=== PATIENT | male | born 1980 | race African-American/Black ===

== ENCOUNTER 2021-03-07 12:34 | Outpatient (REF) | payer BC, SELFPAY ==
[2021-03-07 13:16] LABS: MANUAL DIFF FLAG NO
[2021-03-07 13:17] LABS: Basophils Percent Auto 0.4 % (0-2); Eosinophils Percent Auto 0.7 % (0-4); Hematocrit 40.8 % (42-52); Hemoglobin 13.2 g/dl (14.0-18.0); Imm Gran Abs Auto 0.01 X10*3/uL (0.00-0.03); Imm Gran Pct Auto 0.2 % (0.0-0.4); Lymphocytes Absolute Auto 1.5 X10*3/uL (1.2-4.9); Lymphocytes Percent Auto 33.7 % (20-40); Mean Corpuscular HGB Conc 32.4 g/dl (31.0-36.0); Mean Corpuscular Hemoglobin 29.4 pg (27.0-33.0); Mean Corpuscular Volume 90.9 fL (80-98); Mean Platelet Volume 10.1 fL (9.4-12.4); Monocytes Absolute Auto 0.4 X10*3/uL (0.1-1.2); Monocytes Percent Auto 9.6 % (2-11); Neutrophils Absolute Auto 2.5 X10*3/uL (2.0-8.3); Neutrophils Percent Auto 55.4 % (45-73); Platelet Count 298 X10*3/uL (160-400); Red Blood Count 4.49 X10*6/uL (4.60-5.80); Red Cell Distribution Width 12.6 % (11.0-16.0); White Blood Count 4.5 X10*3/uL (4.8-10.8)
[2021-03-07 13:51] LABS: Alanine Aminotransferase 14 U/L (0-40); Albumin Level 4.5 g/dL (3.5-5.0); Alkaline Phosphatase 60 U/L (39-117); Anion Gap 11 (12-20); Aspartate Amino Transferase 24 U/L (5-37); Bilirubin Total 0.6 mg/dL (0.0-1.0); Blood Urea Nitrogen 12 mg/dL (9-16); Calcium 9.8 mg/dL (8.4-10.2); Carbon Dioxide 28 mmol/L (22-29); Chloride 108 mmol/L (96-108); Cholesterol 220 mg/dL; Estimated Glomerular Filt Rate > 60; Glucose Random 91 mg/dL (60-115); HDL Cholesterol 46 mg/dL; LDL Cholesterol Calculated 164 mg/dl; Potassium 4.4 mmol/L (3.3-5.1); Sodium 143 mmol/L (135-145); Triglycerides 53 mg/dL
== END 2021-03-07 12:35 | disposition home or self-care (01) ==
LOC: HO.LAB 12:34
PROVIDERS: PCP Internal Medicine; Visit Provider Internal Medicine
DX: B00.1 Herpesviral vesicular dermatitis (principal); E78.00 Pure hypercholesterolemia, unspecified; Z85.72 Personal history of non-Hodgkin lymphomas
CPT/HCPCS: 36415; 80053; 80061; 85025

== ENCOUNTER → 2021-03-10 09:35 | Outpatient (BNV) | payer BC, OTHER, SELFPAY | PROVIDERS: PCP Internal Medicine; Visit Provider Internal Medicine | DX: C91.50 Adult T-cell lymphoma/leukemia (HTLV-1-associated) not having achieved remission (principal); D61.818 Other pancytopenia | CPT/HCPCS: 99213; 99214; 99215; G2211 ==

== ENCOUNTER 2021-05-23 09:18 | Outpatient (REF) | payer BC, SELFPAY ==
[2021-05-23 10:36] LABS: Alanine Aminotransferase 11 U/L (0-40); Albumin Level 4.4 g/dL (3.5-5.0); Alkaline Phosphatase 55 U/L (39-117); Anion Gap 10 (12-20); Aspartate Amino Transferase 17 U/L (5-37); Bilirubin Total 0.9 mg/dL (0.0-1.0); Blood Urea Nitrogen 17 mg/dL (9-16); Calcium 9.7 mg/dL (8.4-10.2); Carbon Dioxide 27 mmol/L (22-29); Chloride 107 mmol/L (96-108); Cholesterol 243 mg/dL; Estimated Glomerular Filt Rate 53; Glucose Random 99 mg/dL (60-115); HDL Cholesterol 50 mg/dL; LDL Cholesterol Calculated 175 mg/dl; Potassium 4.2 mmol/L (3.3-5.1); Sodium 140 mmol/L (135-145); Total Protein 7.8 g/dL (6.5-8.0); Triglycerides 92 mg/dL
== END 2021-05-23 09:19 | disposition home or self-care (01) ==
LOC: HO.LAB 09:18
PROVIDERS: PCP Internal Medicine; Visit Provider Internal Medicine
DX: R10.2 Pelvic and perineal pain (principal); E78.00 Pure hypercholesterolemia, unspecified; Z85.72 Personal history of non-Hodgkin lymphomas
CPT/HCPCS: 36415; 80053; 80061

== ENCOUNTER 2022-06-11 09:39 | Outpatient (REF) | payer BC, SELFPAY ==
[2022-06-11 09:47] LABS: MANUAL DIFF FLAG NO
[2022-06-11 10:05] LABS: Basophils Percent Auto 0.4 % (0-2); Eosinophils Percent Auto 0.4 % (0-4); Hematocrit 39.3 % (42.0-52.0); Hemoglobin 13.1 g/dl (14.0-18.0); Imm Gran Abs Auto 0.01 X10*3/uL (0.00-0.03); Imm Gran Pct Auto 0.1 % (0.0-0.4); Lymphocytes Absolute Auto 1.7 X10*3/uL (1.2-4.9); Mean Corpuscular HGB Conc 33.3 g/dl (31.0-36.0); Mean Corpuscular Volume 90.1 fL (80.0-98.0); Mean Platelet Volume 9.7 fL (9.4-12.4); Monocytes Absolute Auto 0.6 X10*3/uL (0.1-1.2); Monocytes Percent Auto 9.1 % (2-11); Neutrophils Absolute Auto 4.4 x10*3/uL (2.0-8.3); Platelet Count 239 X10*3/uL (160-400); Red Blood Count 4.36 X10*6/uL (4.60-5.80); Red Cell Distribution Width 12.4 % (11.0-16.0); White Blood Count 6.8 X10*3/uL (4.8-10.8)
[2022-06-11 10:30] LABS: Alanine Aminotransferase 10 U/L (0-40); Albumin Level 4.5 g/dL (3.5-5.0); Alkaline Phosphatase 64 U/L (39-117); Anion Gap 14 (12-20); Aspartate Amino Transferase 21 U/L (5-37); Bilirubin Total 0.7 mg/dL (0.0-1.0); Blood Urea Nitrogen 19 mg/dL (9-16); Calcium 9.3 mg/dL (8.4-10.2); Carbon Dioxide 25 mmol/L (22-29); Chloride 109 mmol/L (96-108); Cholesterol 185 mg/dL; Estimated Glomerular Filt Rate > 60; Glucose Random 105 mg/dL (60-115); HDL Cholesterol 50 mg/dL; LDL Cholesterol Calculated 124 mg/dl; Potassium 4.4 mmol/L (3.3-5.1); Sodium 144 mmol/L (135-145); Total Protein 7.9 g/dL (6.5-8.0); Triglycerides 58 mg/dL
== END 2022-06-11 09:40 | disposition home or self-care (01) ==
LOC: HO.LAB 09:39
PROVIDERS: PCP Internal Medicine; Visit Provider Internal Medicine
DX: E78.00 Pure hypercholesterolemia, unspecified (principal); I10 Essential (primary) hypertension
CPT/HCPCS: 36415; 80053; 80061; 85025

== ENCOUNTER 2022-12-17 10:46 | Outpatient (REF) | payer BC, SELFPAY ==
[2022-12-17 12:10] LABS: Alanine Aminotransferase 16 U/L (0-40); Albumin Level 4.4 g/dL (3.5-5.0); Alkaline Phosphatase 70 U/L (39-117); Anion Gap 11 (12-20); Aspartate Amino Transferase 21 U/L (5-37); Bilirubin Total 0.8 mg/dL (0.0-1.0); Blood Urea Nitrogen 17 mg/dL (9-16); Calcium 9.2 mg/dL (8.4-10.2); Carbon Dioxide 27 mmol/L (22-29); Chloride 107 mmol/L (96-108); Cholesterol 185 mg/dL; Estimated Glomerular Filt Rate > 60; Glucose Random 94 mg/dL (60-115); HDL Cholesterol 46 mg/dL; LDL Cholesterol Calculated 128 mg/dl; Potassium 4.3 mmol/L (3.3-5.1); Sodium 141 mmol/L (135-145); Total Protein 7.5 g/dL (6.5-8.0); Triglycerides 58 mg/dL
== END 2022-12-17 10:47 | disposition home or self-care (01) ==
LOC: HO.LAB 10:46
PROVIDERS: PCP Internal Medicine; Visit Provider Internal Medicine
DX: Z00.00 Encounter for general adult medical examination without abnormal findings (principal); E78.00 Pure hypercholesterolemia, unspecified; I10 Essential (primary) hypertension
CPT/HCPCS: 36415; 80053; 80061

== ENCOUNTER 2024-04-14 10:58 | Day surgery (SDC) | payer OTHER, SELFPAY ==
--- NOTE | ~2024-04-14 | IR_ITS ---
CLINICAL HISTORY: T-cell lymphoma. The patient presents to interventional radiology for placement of a port for chemotherapy. PROCEDURES: 1. Real-time ultrasound-guided access into the right internal jugular vein after documentation of selected vessel patency, and permanent image storing in the patient records. 2. Placement of a 6.6 Danish single-lumen power port. CLINICIAN: Tavon Santiago PA-C MEDICATIONS: - Versed 1.5 mg, Fentanyl 75 mcg, Lidocaine 1% 10 mL SQ -Antibiotics: Ancef 2g -For additional details, please see nursing flowsheet. Complications: None. Estimated blood loss: <5 ml Specimens: None. Contrast: None. Fluoroscopy time: 2.9 min MODERATE SEDATION TIME: 33 min PROCEDURE NOTE: The procedure, risks, benefits, and alternatives were carefully explained to the patient and written informed consent was obtained. The patient was placed supine on the fluoroscopy table. A timeout was performed. The right neck and chest was prepped and draped in usual sterile fashion. Maximum barrier technique was utilized. Local anesthesia was administered to the access site with 1% lidocaine. Under ultrasound guidance, the right internal jugular vein was accessed with a 5 fr micropuncture set. A 0.035 in wire was advanced into the IVC. A peel-away sheath was advanced over the wire and into the SVC, and the wire was removed. Next, subcutaneous lidocaine was administered to the chest. The port pocket was created after the skin incision, utilizing blunt dissection. Using blunt dissection, a subcutaneous tunnel was created that connects from the port pocket to the venotomy site. Through the peel-away sheath, the 6.6 Danish port catheter was placed. The catheter position was verified with fluoroscopy to be at the superior vena cava/right atrial junction. The port was connected to the catheter and was placed in the pocket. The venotomy site was closed with a 3-0 Vicryl subcutaneous suture. The port incision site was closed with interrupted 3-0 Vicryl subcutaneous sutures and surgical glue. Prior to closing the skin, 1 g of Ancef solution was placed in the pocket. The port was tested, flushed, and packed with heparin per routine protocol. The patient tolerated the procedure well. The patient was stable after the procedure and was transferred to the PACU. The procedure was performed under moderate sedation and with a dedicated nurse with continuous monitoring of vital signs. A permanent image of the ultrasound the neck and fluoroscopic image of the chest was saved and sent to PACS. FINDINGS: 1. Patent right internal jugular vein 2. Placement of a 6.6 Danish single lumen power port. 3. Port flushes and aspirates very well with a 10 mL syringe. No pneumothorax. IR/IR cvc insert tunnel w prt/hardboard panel printer IMPRESSION: Placement of a 6.6 Danish single-lumen power port. PLAN: - The patient will be discharged home when stable by sedation protocol. - Port may be used immediately. This procedure was performed by Tavon Santiago PA-C, and directly supervised by Dr. Burden
[2024-04-14 11:36] VITALS: BP 105/85; PULSE 100; RESP 18; TEMP 37; O2SAT 100; BMI 24.7
--- NOTE | 2024-04-14 12:48 | MHC.SHP ---
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 and poor iv access Relevant Family History (Specify if Yes): No Relevant Social History: None Present Medications: see Short Stay Collaborative assessment Medical History: Significant History (prior right port) History of Previous Operations: Relevant previous surgery/procedure and date(s) Allergies: Allergies Allergy/AdvReac Type Severity Reaction Status Date / Time No Known Allergies Allergy Verified 04/14/24 11:39 [No Known Allergies*] Review of Systems Sugical H&P ROS: Negative: Cardiovascular, Respiratory and Integumentary and Yes, Specify: Constitution (intermittent fevers) Exam Surgical H&P Exam: Normal: Heart, Normal: Lungs, Normal: Skin and Normal: Neurological Plan Port Time Spent With Patient Time: Total time managing care of this patient today ____ minutes.
[2024-04-14 14:30] VITALS: BP 136/98; PULSE 85; RESP 16; TEMP 37.3; O2SAT 97
[2024-04-14 14:45] VITALS: BP 135/89; PULSE 88; RESP 16; TEMP 37.3; O2SAT 99
== END 2024-04-14 14:46 | disposition home or self-care (01) ==
PROVIDERS: Physician Assistant Surgical; PCP Internal Medicine; Visit Provider Internal Medicine
DX: Z45.2 Encounter for adjustment and management of vascular access device (principal); C84.41 Peripheral T-cell lymphoma, not elsewhere classified, lymph nodes of head, face, and neck; R25.1 Tremor, unspecified; J45.909 Unspecified asthma, uncomplicated; M54.50 Low back pain, unspecified; Z79.899 Other long term (current) drug therapy
CPT/HCPCS: 36561; 76937; 99152; 99153; A4364; C1769; C1788; J0131; J0690; J1642; J1644; J2250; J2310; J3010

== ENCOUNTER → 2024-04-14 12:15 | Outpatient (BNV) | payer OTHER, SELFPAY | PROVIDERS: PCP Internal Medicine; Visit Provider Physician Assistant Surgical | DX: C85.90 Non-Hodgkin lymphoma, unspecified, unspecified site (principal) | CPT/HCPCS: 36561; 76937; 77001 ==

== ENCOUNTER → 2024-04-15 14:03 | Outpatient (REF) | payer OTHER, SELFPAY ==
--- NOTE | 2024-04-15 14:06 | CA_ITS ---
Transthoracic Echocardiogram Patient (Last, First, Middle): Jus Johnson B Gender: Male Date of : 1980 Age: 43 Procedure Date: 04/15/2024 Procedure Type: Transthoracic Echocardiogram Location: OP Height: 177.8 cm Weight: 78.47 kg BSA: 1.96 m2 Heart Rate: bpm BP: 112 / 80 mmHg Senior Care Assistant: TO Referring MD: Ninfa Kirk MD Symptoms: pre-chemo eval Study Quality: Adequate w contrast ECG Rhythm: Sinus Conclusions: - The left ventricular systolic function is mildly decreased. The calculated ejection fraction is 47% by biplane method. - No obvious valvular pathology seen on this study. Findings Procedure Information Contrast agent, definity, is being given per protocol without apparent complications. Left Ventricle Normal left ventricular cavity size. There is normal left ventricular wall thickness. The left ventricular systolic function is mildly decreased. The calculated ejection fraction is 47% by biplane method. There is mild global hypokinesis. Diastolic function is normal for age. LVEF peak GLS -13.4%- diminished. Right Ventricle Normal right ventricular cavity size. There is low normal right ventricular systolic function. Atria Both atria are normal in size. There is a mobile atrial septum noted. Aortic Valve There is a normal trileaflet aortic valve. There is no aortic valve stenosis. There is no aortic valve regurgitation. Mitral Valve The mitral valve appears normal. There is mild mitral valve regurgitation. There is no mitral valve stenosis. Pulmonic Valve There is trace pulmonic valve regurgitation. Tricuspid Valve Normal tricuspid valve structure. There is trace tricuspid valve regurgitation. There is no evidence of pulmonary hypertension. Great Vessels The asc aorta is normal in size. Venous The inferior vena cava is normal in size and collapses greater than 50% with inspiration. Pericardium/Pleural There is no evidence of pericardial effusion. Prior Study Comparison Changes noted compared to prior study dated: 04/18/2015. Decrease in LVEF. Recommendations, Care & Conclusions No obvious valvular pathology seen on this study. Measurements 2D Linear Measurements IVSd: 0.99 0.6-0.9/0.6-1.0 cm LVIDd: 4.17 3.9-5.3/4.2-5.9 cm LVIDd Index: 2.13 2.4-3.2/2.2-3.1 cm/m2 LVIDs: 3.00 2.0-3.6 cm LVPWd: 0.91 0.7-1.1 cm LA Diam: 2.80 2.7-3.8/3.0-4.0 cm LAIDs Index: 1.43 1.5-2.3 cm/m2 LV Mass: 156.95 67-162/88-224 g LV Mass Index: 80.08 43-95/49-115 g/m2 LVOT Diam: 2.20 3.0+(-)1.3 cm 2D Systolic Function EF 4C: 45.80 >55% EF 2C: 45.40 >55% EF BiP: 46.60 >55% Mitral Valve MV Pk E: 0.42 MV PK A: 0.49 MV Decel Time: 164.00 E/A: 0.90 E'Lateral: 6.31 E'Medial: 5.55 E/E' Med: 7.60 E/E' Lat: 6.70 PHT: 48.00 MVA PHT: 4.58 Decel Villalba: 2.55 Aortic Valve AoV Pk Juan Miguel: 1.21 AoV Mn Juan Miguel: 0.83 AoV VTI: 0.18 AoV Pk Grad: 6.00 Aov Mn Grad: 3.00 FARHAT Cont.VTI: 3.61 LVOT LVOT Pk Juan Miguel: 1.01 LVOT Mn Juan Miguel: 0.63 LVOT VTI: 0.17 LVOT Pk Grad: 4.00 LVOT Mn Grad: 2.00 LVOT Diam: 2.20 LVOT Area: 3.80 Diastolic Function MV Pk E: 0.42 MV Pk A: 0.49 E/A: 0.90 E'Medial: 5.55 E/E' Med: 7.60 E' Laterial: 6.31 E/E' Lat: 6.70 Right Ventricle TAPSE (mm): 15.00 TVS' Juan Miguel: 10.40 Tricuspid Valve TR Pk Juan Miguel: 2.05 TR Pk Grad: 17.00 RA Press: 3.00 RVSP: 20.00 Great Vessels Aorta Sinus of Valsalva: 3.88 2.0-3.5 cm Ao Asc: 3.30 2.1-3.4 cm Updated in Other Vendor System with Status of Final Jan Gustafson MD electronically signed on 04/17/2024 10:20:39 AM with status of Final
== END ==
LOC: HO.CARD 14:03
PROVIDERS: PCP Internal Medicine; Visit Provider Internal Medicine
DX: C85.90 Non-Hodgkin lymphoma, unspecified, unspecified site (principal)
CPT/HCPCS: 93306; 93356; Q9957

== ENCOUNTER → 2024-04-15 14:06 | Outpatient (BNV) | payer OTHER, SELFPAY | PROVIDERS: PCP Internal Medicine; Visit Provider Internal Medicine | DX: I34.0 Nonrheumatic mitral (valve) insufficiency (principal); Z51.11 Encounter for antineoplastic chemotherapy | CPT/HCPCS: 93306; 93356 ==

== ENCOUNTER 2024-04-17 10:28 | Day surgery (SDC) | payer OTHER, SELFPAY ==
--- NOTE | ~2024-04-17 | FL_ITS ---
FLUOROSCOPIC GUIDED LUMBAR PUNCTURE INDICATION: Recurrent T-cell lymphoma. Tremors. TECHNIQUE: Risks and benefits and possible complications were discussed with the patient and the consent form was signed. Patient was placed prone on the fluoroscopy table. The back was prepped and draped in routine sterile fashion. Betadine was used as a skin antiseptic. Utilizing fluoroscopic guidance, the L4-5 interlaminar space was accessed with a 22 gauge Omid spinal needle and clear CSF fluid obtained. 10 cc of fluid was sent for the requested labs. The needle was removed without immediate complications. Total fluoroscopy time: 0.2 min FL/FL guided lumbar puncture LP IMPRESSION: Successful fluoroscopic guided lumbar puncture This procedure was performed by Tavon Santiago PA-C and supervised by Dr. Burden.
[2024-04-17 11:03] VITALS: BMI 24.8
[2024-04-17 13:25] VITALS: BP 146/94; PULSE 86; RESP 21; TEMP 37.3; O2SAT 99
[2024-04-17 13:41] VITALS: BP 155/92; PULSE 77; RESP 17; TEMP 37.3; O2SAT 99
[2024-04-17 13:57] VITALS: BP 152/101; PULSE 85; RESP 17; TEMP 37.2; O2SAT 99
[2024-04-17 14:01] LABS: CSF Appearance Clear, Colorless; CSF Tube # 1
[2024-04-17 14:30] LABS: Total Protein CSF 98.6 mg/dL (15-45)
[2024-04-17 14:37] LABS: Appearance CSF CLEAR; CSF Tube # 4; Color CSF COLORLESS
[2024-04-17 14:50] LABS: CSF Monos 6 %; CSF Other Cells % 3 %; Lymphocytes CSF 91 %; Neutrophils CSF 0 %; Red Blood Cell CSF 0 MM*3; White Blood Cell CSF 42 MM*3
[2024-04-21 19:08] LABS: VDRL Qualitative CSF Nonreactive (Nonreactive)
--- OUTSIDE RECORDS SUMMARY | 2024-04-22 06:31 | XMS_ITS | Patient Health Record ---
Author Organization [facility] Address [address] [place] [address] Care Team Providers Care Knitter Hand Name Role Phone Sonali Magana Primary Care Provider Goldy Larson Unavailable [phone] ALLERGIES No Known Allergies REASON FOR REFERRAL No Information MEDICATIONS Medication SIG (Take, Route, Frequency, Duration) Notes Start Date End Date Status Atorvastatin Calcium 40 MG Oral for 60 Active SOCIAL HISTORY Tobacco Use: Social History Observation Description Date Details (start date - stop date) Never Smoker NA - NA Sex Assigned At : Social History Observation Description Sex Assigned At Unknown Tobacco Use/Smoking Question Answer Notes Patient is a nonsmoker Alcohol Screen Question Answer Notes Did you have a drink contain ing alcohol in the past year? Yes How often did you have a dri nk containing alcohol in the past year? Monthly or less (1 point) How many drinks did you have on a typical day when you were drinking in the past year? 1 or 2 drinks (0 point) How often did you have 6 or more drinks on one occasion in the past year? Never (0 point) Points 1 Interpretation Negative PROBLEMS Problem Type ICD Code Onset Dates Problem Status W/U Status Risk SNOMED Code Notes Problem Encounter for screening for malignant neoplasm of colon (Z12.11) Active confirmed 598418101 Problem Preprocedural examination (Z01.818) Active confirmed [id number] PLAN OF TREATMENT No Information Insurance Providers Payer Name Payer Address Payer Phone Subscriber Number Group Number Insured Name Patient Relationship to Insured Coverage Start Date Coverage End Date BLUE CROSS BLUE [facility] [address] [place] [address] [id number] XIN SEXTON Self - patient is the insured MEDICAL (GENERAL) HISTORY Medical History History ICD Code Non-Hodgkins lymphoma 2014- Dr. Kirk-2 015--chemo for about 6 months Denies [place],DM,CVA,Lung disease,renal dise ase Hyperlipidemia Surgical History Surgery Date(Month/Year) Port insertion
== END 2024-04-17 14:00 | disposition home or self-care (01) ==
PROVIDERS: Physician Assistant Surgical; PCP Internal Medicine; Visit Provider Internal Medicine
PROC: 009U3ZZ Drainage of Spinal Canal, Percutaneous Approach (ICD-10-PCS; CPT 62270; principal; 2024-04-17 12:30)
DX: C84.41 Peripheral T-cell lymphoma, not elsewhere classified, lymph nodes of head, face, and neck (principal); R25.1 Tremor, unspecified; J45.909 Unspecified asthma, uncomplicated; Z79.899 Other long term (current) drug therapy
CPT/HCPCS: 36415; 62328; 84157; 86592; 88112; 88184; 88185; 89051

== ENCOUNTER → 2024-04-17 12:17 | Outpatient (BNV) | payer OTHER, SELFPAY | PROVIDERS: PCP Internal Medicine; Visit Provider Physician Assistant Surgical | DX: C85.90 Non-Hodgkin lymphoma, unspecified, unspecified site (principal) | CPT/HCPCS: 62328 ==

== ENCOUNTER 2024-07-23 10:37 | Outpatient (REF) | payer OTHER, SELFPAY ==
--- NOTE | ~2024-07-23 | XR_ITS ---
EXAMINATION: XR CHEST CLINICAL INFORMATION: Pneumonia COMPARISON: CT chest 03/24/2018. TECHNIQUE: 2 views of the chest were obtained. FINDINGS: Right chest port catheter with its tip projecting over the cavoatrial junction. The lungs are well-expanded. Streaky opacity in the left lung base. The right lung appears clear. No pleural effusions or pneumothorax. The cardiac mediastinal silhouette is within normal limits. No acute osseous abnormality. XR/XR chest 2V IMPRESSION: Streaky opacity in the left lung base may represent atelectasis or infiltrate. Electronically signed by: Greg Torres MD 07/23/2024 01:50 PM [facility]
== END 2024-07-23 10:38 | disposition home or self-care (01) ==
LOC: HO.XRAY 10:37
PROVIDERS: PCP Internal Medicine; Visit Provider Internal Medicine Medical Oncology
DX: J18.9 Pneumonia, unspecified organism (principal)
CPT/HCPCS: 71046

== ENCOUNTER 2025-01-29 13:12 | Inpatient (IN) | payer OTHER, SELFPAY ==
[2025-01-29] VITALS (7 sets, daily range): BP systolic 86–122; BP diastolic 54–71; PULSE 102–112; RESP 16–18; TEMP 36.3–38.7; O2SAT 94–99; BMI 25.1
--- NOTE | ~2025-01-29 | XR_ITS ---
CLINICAL HISTORY: worsening O2 sats 1 view chest x-ray Comparison: CR - XR CHEST 1V - 01/30/25 17:13 EDT Findings: Oikz-mgfgfgw-cbmg-right bibasilar streaky opacities/atelectasis. No significant pleural effusion or pneumothorax. Similar prominent/enlarged cardiac silhouette. Similar position of the right chest port. No acute fracture. IMPRESSION: Ypze-aihuelm-cnvw-right bibasilar streaky opacities/atelectasis. This document has been electronically signed by: Dhiraj Block MD on 01/31/2025 23:43:29
--- NOTE | ~2025-01-29 | US_ITS ---
CLINICAL HISTORY: GINNY US Renal Comparison: None Findings: Right kidney normal size and echotexture, 11.2 cm length. Left kidney normal size and echotexture, 13.0 cm length. There are bilateral renal bosniak 1 cysts. No hydronephrosis of either kidney. Normal color Doppler IMPRESSION: 1. No acute findings. This document has been electronically signed by: Maximiliano Thomas MD on 01/30/2025 10:38:48
--- NOTE | ~2025-01-29 | XR_ITS ---
CLINICAL HISTORY: hyopxia Chest Radiograph Comparison: CR/SR - XR CHEST 1V - 01/29/25 15:04 EDT Findings: Right chest wall central venous catheter with the tip terminating at the proximal right atrium. No cardiomegaly. Normal mediastinal contours. No pneumothorax. Linear opacities in the lower lung zones, new. No pleural effusion. Normal upper abdomen. No acute fracture. Impression: New linear opacities in the lower lung zones are likely subsegmental atelectasis. This document has been electronically signed by: Jennifer Cortez MD on 01/30/2025 17:58:31
--- NOTE | ~2025-01-29 | XR_ITS ---
EXAMINATION: XR CHEST CLINICAL INFORMATION: Neutropenic fever COMPARISON: 07/23/2024. TECHNIQUE: Frontal view of the chest was obtained. FINDINGS: Right chest port in place with tip in the cavoatrial junction. The cardiac, hilar, and mediastinal contours are normal. There is a retrocardiac consolidative opacity. Pneumonia suspected. The right lung is clear. There is no pneumothorax. There are no definite effusions. No focal osseous or soft tissue abnormality. XR/XR chest 1V IMPRESSION: Left lower lobe consolidative opacity suspicious for pneumonia. Electronically signed by: Delfin Burden MD 01/29/2025 03:19 PM EDT
--- NOTE | 2025-01-29 13:19 | PM.IMHP ---
History of Present Illness Date of Service: 01/29/25 Attending physician on admission: Prachi Casas Chief Complaint: Abnormal labs Pt is a 44-year-old male with a PMH significant for T-cell lymphoma?diagnosed in 2024 with remission x9 years and reoccurrence in 2024, follows with [facility] and [place] [facility] [place], and HLD who is a direct admission to the hospital from Oncology suite after pt was noted to be febrile at 102 degrees and routine labs showed severe thrombocytopenia with undetectable platelets as well as hypercalcemia. Pt has undergone high-dose chemotherapy, bone marrow transplant, stem cell transplantation, as well as other experimental therapies with lymphoma recurrence. Pt has been monitored for cytopenias, receiving blood and platelet transfusion over the past few weeks. Last week was admitted to [facility] and treated with Nplate, Neulasta, and high dose cytarabine monotherapy 2g x2 with last dose on 01/21. Today in oncology office was given 1 L IVF, 2 units platelets, and started on vanc and Zosyn before being directly admitted to the hospital. ?Pt complains of pruritic all-body rash for the past few days. Has also been coughing on and off for the past few days with noted hemoptysis and mild epistaxis with blowing nose since yesterday. Denies hematuria, hematochezia, or melena. States he has not been either eating or drinking much the past few weeks. Also has felt very cold and experienced uncontrollable shivering for the past few hours since being in the hospital. Some weakness with walking, but no lightheadedness or dizziness. Denies chest pain/pressure, palpitations. No nausea, vomiting, abdominal pain. Today patient's vitals significant for fever up to 102.9, tachycardia up to 123, and hypotension as low as 79/51. Labs were significant for leukopenia 2.1, H&H 7.9/23.1, platelets undetectable, absolute neutrophils 0.3, creatinine 2.03(elevated from 0.90), lactic acid 2.2, and calcium 14.2. Ordered CXR which showed left lower lobe consolidation suspicious for pneumonia. Pt is admitted to the hospital for treatment and further evaluation of thrombocytopenia, hypercalcemia, and neutropenic fever in the the setting of pneumonia with sepsis and pt with worsening T cell lymphoma. Review of Systems Review of Systems: Negative except for that which is stated in the HPI. [facility] Medical History Port-A-Cath in place Non-Hodgkin lymphoma Low back pain Asthma Family History Mother Meningitis Father Surgical History History of removal of Port-a-Cath History of bone marrow biopsy Social History Household Members: Family Housing: House Do you presently have visiting nurse or other home services: No Alcohol intake: current Alcohol intake frequency: holidays/special occasions only Patient Tobacco Use Status: Never used Tobacco Currently Displaying Signs/Symptoms of Drug Intoxication Withdrawal: No Have you been hit, kicked, punched, or otherwise hurt by someone within the past year? If so, by whom?: No Do you feel safe in your current relationship?: Yes Is there a partner from a previous relationship who is making you feel unsafe now?: No Are you made to feel afraid or neglected: No Advance Directives: No Advance Directives Information Provided: No Do you have a plan to hurt others: No Plan service: No Current occupational status: employed and unemployed Meds Allergies Allergy/AdvReac Type Severity Reaction Status Date / Time No Known Allergies Allergy Verified 12/08/24 14:25 [No Known Allergies*] Active Medications: Current Medications Acetaminophen (Acetaminophen 325 Mg Tablet) 650 mg PO Q6H PRN PRN Reason: Pain, Mild 1-3,fever,headache Furosemide (Furosemide 40 Mg/4 Ml Vial) 40 mg IVPUSH BID@0900,1800 KAREN; Protocol Pamidronate Disodium 60 mg/ (Sodium Chloride) 260 mls @ 130 mls/hr IV ONCE ONE Stop: 01/29/25 15:59 Sodium Chloride (Ns) 1,000 mls @ 150 mls/hr IVCONT .Q6H40M KAREN Piperacillin Sod/Tazobactam (Sod 4.5 gm/ Sodium Chloride) 100 mls @ 200 mls/hr IV Q6H KAREN Magnesium Hydroxide (Milk Of Magnesia 30 Ml Oral.Susp) 30 ml PO DAILY PRN PRN Reason: Constipation Melatonin (Melatonin 3 Mg Tablet) 6 mg PO BEDTIME PRN PRN Reason: Insomnia Pharmacy Consult (Consult Rx Vancomycin Dosing) 1 each MISCELLANE DAILY PRN PRN Reason: Consult order Sodium Chloride (0.9 % Sodium Chloride Flush 3 Ml Syringe) [facility]ations ?Medication ?Instructions ?Recorded ?Confirmed ?Last Taken ?Type atovaquone 750 mg/5 mL oral 1,500 mg PO DAILY 05/15/24 01/29/25 01/29/25 History suspension oxycodone 5 mg capsule 5 mg PO Q6H PRN Pain 06/01/24 01/29/25 Unknown History polyethylene glycol 3350 17 gram 17 g PO BID PRN Constipation 06/01/24 01/29/25 Unknown History oral powder packet (Miralax) sennosides 8.6 mg capsule (senna) 8.6 mg PO BID PRN Constipation 06/01/24 01/29/25 Unknown History levofloxacin 500 mg tablet 500 mg PO DAILY 07/16/24 01/29/25 01/29/25 History letermovir 480 mg tablet 480 mg PO DAILY 12/08/24 01/29/25 01/29/25 History propranolol 10 mg tablet 10 mg PO DAILY 12/08/24 01/29/25 01/29/25 History esomeprazole magnesium 20 mg 20 mg PO DAILY@0630 01/29/25 01/29/25 01/29/25 History capsule,delayed release levetiracetam 750 mg tablet 750 mg PO BID 01/29/25 01/29/25 01/29/25 History loperamide 2 mg capsule 2 mg PO QID PRN Loose Stool 01/29/25 01/29/25 Unknown History magnesium oxide 400 mg PO BID 01/29/25 01/29/25 01/29/25 History mirtazapine 15 mg tablet 15 mg PO BEDTIME 01/29/25 01/29/25 01/29/25 History potassium phosphate, monobasic 500 500 mg PO BID 01/29/25 01/29/25 01/29/25 History mg soluble tablet saliva substitute combo no.9 15 ml mucous membrane Q4H PRN Dry 01/29/25 01/29/25 Unknown History Mouth sodium chloride 0.9 % (flush) 10 ml IV DAILY 01/29/25 01/29/25 Unknown History (Normal Saline Flush 0.9 % injection syringe) Physical Exam Vital Signs and Narrative: General: AOx3, rigors. Resp: Coarse expiratory breath sounds bilaterally Throat: A few white patches on oropharynx CVS: S1, S2, RRR GI: +BS, NT, no distention Skin: Warm, dry; diffuse maculopapular rash especially on torso, back, and thighs Neuro: Cranial nerves II-XII grossly intact bilaterally. Motor grossly intact bilaterally Extremities: No edema Psych: Appropriate affect Results Labs 01/30/25 07:12 01/30/25 07:12 Assessment and Plan (1) Hypercalcemia: Status: Acute (2) Thrombocytopenia: Status: Acute (3) Neutropenic fever: Status: Acute (4) Pneumonia: Status: Acute Plan Pt is a 44-year-old male with a PMH significant for T-cell lymphoma?diagnosed in 2024 with remission x9 years and reoccurrence in 2024, [place] [facility] [place] [facility] [place] [facility], and D who is a direct admission to the hospital from Oncology suite after pt was noted to be febrile at 102 degrees and routine labs showed severe thrombocytopenia with undetectable platelets as well as hypercalcemia. Pt is admitted to the hospital for treatment and further evaluation of thrombocytopenia, hypercalcemia, and neutropenic fever in the the setting of pneumonia with sepsis and pt with worsening T cell lymphoma. Neutropenic fever in the setting of pneumonia with severe sepsis Pt with fever up to 102, rigors, absolute neutrophils 0.3 Pt was deemed to meet sepsis criteria when chart was evaluated at 13:01 with thrombocytopenia, fever, tachycardia, and tachypnea Pt had already received 1 L of IVF, had blood cultures drawn, and started on broad-spectrum antibiotics in the oncology office Due to hypotension and meeting severe sepsis criteria was given sepsis bolus fluids and lactic acid was drawn which was 2.2 with repeat 1.5 CXR was obtained which showed left lower lobe consolidation concerning for pneumonia Will treat with vancomycin and cefepime, started 01/29/2025 Will check MRSA nasal swab, Legionella Ag, and strep pneumo Neutropenic precautions ID consult Heme/Onc consult Follow blood cultures Hypotension Patient's BP as low as 79/51 In the setting of above Pt has received 3.5L IV bolus Continues to be hypotensive, will give anohter 1L bolus, albumin ICU has been notified, possible transfer Hold antihypertensives Thrombocytopenia Patient's platelets undetectable earlier this morning Was transfused 2 units of platelets in Oncology suite, repeat platelets at 37 Trend platelets Acute on chronic anemia Patient's H&H 7.9/23.1 with repeat 7.0/20.1 In the setting of T cell lymphoma and recent chemotherapy Will hold off on transfusion for now Type and screen Trend CBC Hyperkalcemia Initial calcium this morning 14.2 with repeat 12.5 Pt received IVF, pamidronate disodium 60 mg IV x1 Will place on maintenance fluids: NS @150mls/h per nephrology Nephrology has suggested to treat with Lasix 40mg IV bid, but will hold due to hypotension Nephrology consult Trend calcium GINNY Initial creatinine 2.03 Likely secondary to hypovolemia in the setting of decreased p.o. intake Pt receiving IVF Nephrology consult Follow creatinine Maculopapular rash Pt with diffuse pruritic rash for the past few days Possibly iatrogenic secondary to recent course of Levaquin vs chemotherapy Will treat with Benadryl p.r.n. Oral candidiasis Pt with sore throat and some oropharyngeal white patches Will treat with nystatin swish and swallow Full Code Attending:?Dr. Casas DVT Prophylaxis: Pneumatic compression Pt will require a hospitalization of at least two nights for treatment of?thrombocytopenia, hypercalcemia, neutropenic fever, among others in the setting of pneumonia with severe sepsis and in a pt with worsening T-cell lymphoma with recent chemotherapy. Pt will require hospital level care for administration of IV antibiotics, IVF, blood product transfusions as necessary, and close monitoring labs. Quality Stroke Does the patient have a stroke diagnosis?: No VTE Prior VTE?: No VTE Risk Level:: Medical - moderate - high VTE Device Contraindication: N/A - Device Ordered VTE Drug Contraindication: Treatment Not Indicated
--- OUTSIDE RECORDS SUMMARY | 2025-01-29 13:23 | XMS_ITS | Patient Health Record ---
Author Organization [facility] Address [address] [place] [address] Care Team Providers Care Pumper Gauger Name Role Phone Sonali Magana Primary Care Provider Goldy Larson Unavailable [phone] Allergies No Known Allergies Reason For Referral No Information Medications Medication SIG (Take, Route, Frequency, Duration) Notes Start Date End Date Status Atorvastatin Calcium 40 MG Oral for 60 Active Social History Tobacco Use: Social History Observation Description Date Details (start date - stop date) Never Smoker NA - NA Tobacco Use/Smoking Question Answer Notes Patient is [...] Never (0 point) Points 1 Interpretation Negative Section Notes: From [facility] in 2010 Nonsmoker; occ. alcohol Problems Problem Type SNOMED Code ICD Code Onset Dates Problem Status W/U Status Risk Notes Problem [id number] Encounter for screening for malignant neoplasm of colon (Z12.11) Active confirmed Problem [id number] Preprocedural examination (Z01.818) Active confirmed Plan Of Treatment No Information Insurance Providers Payer Name Payer Address Payer Phone Subscriber Number Group Number Insured Name Patient Relationship to Insured Coverage Start Date Coverage End Date BLUE CROSS BLUE [facility] [address] [place] [address] [id number] XIN SEXTON Self - patient is the insured Medical (General) History Medical History History ICD Code Non-Hodgkins lymphoma 2014- Dr. Kirk-2 015--chemo for about 6 months Denies [place],DM,CVA,Lung disease,renal dise ase Hyperlipidemia Surgical History Surgery Date(Month/Year) Port insertion
--- NOTE | 2025-01-29 13:48 | P.CNHO_ITS ---
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 He was initially diagnosed in 2014 and received chemotherapy at [facility]. He was in remission for 9 years and he developed recurrence in 2024. He developed DATA ANALYTICS ANALYST involvement. He was treated with high-dose chemotherapy and underwent allogeneic stem cell transplantation in [place] under the care of Dr. Gifty Lenz. Unfortunately he developed recurrent disease and has failed multiple other lines of treatment. He is being monitored at [facility] for cytopenias and received blood and platelet transfusions in the last several weeks. He received Nplate and Neulasta last week. He continues to be severely pancytopenic. Today he presented with fever of 102 degrees F and hypotension. He was given fluids, IV antibiotics and platelets in the clinic and admitted to the floor directly for further care. Patient also complaints of mouth sores and a body rash. He has had this body rash for few days now. [facility] Medical History: Medical History (Last Reviewed 01/29/25 @ 16:57 by Shirley Verdugo MD) Asthma Low back pain Non-Hodgkin lymphoma Port-A-Cath in place Family History: Family History (Last Reviewed 01/29/25 @ 16:57 by Shirley Verdugo MD) Mother Meningitis Father Surgical History: Surgical History (Last Reviewed 12/08/24 @ 14:25 by Rachana Chew) History of bone marrow biopsy History of removal of Port-a-Cath Social History: Social History (Last Reviewed 12/08/24 @ 14:25 by Rachana Chew) Living Situation History: Household Members: Spouse Household Members: Children Housing: House Tobacco History: Patient Tobacco Use Status: Never used Tobacco Advance Directives: Advance Directives: No Advance Directives Information Provided: No Occupation Assessmet: service: No Current occupational status: employed Current occupational status: unemployed Home Medications and Allergies Current Medications: Current Medications Acetaminophen (Acetaminophen 325 Mg Tablet) 650 mg PO Q6H PRN PRN Reason: Pain, Mild 1-3,fever,headache Furosemide (Furosemide 40 Mg/4 Ml Vial) 40 mg IVPUSH BID@0900,1800 [facility]; Protocol Pamidronate Disodium 60 mg/ (Sodium Chloride) 260 mls @ 130 mls/hr IV ONCE ONE Stop: 01/29/25 15:59 Sodium Chloride (Ns) 1,000 mls @ 150 mls/hr IVCONT .Q6H40M [facility] Piperacillin Sod/Tazobactam (Sod 4.5 gm/ Sodium Chloride) 100 mls @ 200 mls/hr IV Q6H [facility] Magnesium Hydroxide (Milk Of Magnesia 30 Ml Oral.Susp) 30 ml PO DAILY PRN PRN Reason: Constipation Melatonin (Melatonin 3 Mg Tablet) 6 mg PO BEDTIME PRN PRN Reason: Insomnia Pharmacy Consult (Consult Rx Vancomycin Dosing) 1 each MISCELLANE DAILY PRN PRN Reason: Consult order Sodium Chloride (0.9 % Sodium Chloride Flush 3 Ml Syringe) 3 ml IVFLUSH QSHIFT [facility] Home Medications ?Medication ?Instructions ?Recorded ?Confirmed ?Type amlodipine 10 mg PO DAILY 03/09/22 12/08/24 History losartan 50 mg tablet 50 mg PO DAILY 03/04/24 12/08/24 History atovaquone 750 mg/5 mL oral 1,500 mg PO DAILY 05/15/24 12/08/24 History suspension folic acid 1 mg tablet 1 mg PO DAILY 05/15/24 12/08/24 History thiamine HCl (vitamin B1) 100 mg 100 mg PO DAILY 05/15/24 12/08/24 History tablet acetaminophen 300 mg PO Q8H PRN Headache 06/01/24 12/08/24 History acetazolamide 250 mg tablet 500 mg PO 2XD 06/01/24 12/08/24 History atorvastatin 40 mg tablet 40 mg PO BEDTIME 06/01/24 12/08/24 History caffeine 200 mg PO Q8H PRN Headache 06/01/24 12/08/24 History olanzapine 5 mg tablet 5 mg PO BID 06/01/24 12/08/24 History oxycodone 5 mg capsule 5 mg PO Q6H PRN Pain 06/01/24 12/08/24 History polyethylene glycol 3350 17 gram 17 g PO BID PRN Constipation 06/01/24 12/08/24 History oral powder packet (Miralax) propranolol 30 mg PO 3XD 06/01/24 12/08/24 History sennosides 8.6 mg capsule (senna) 8.6 mg PO BID PRN Constipation 06/01/24 12/08/24 History levofloxacin 500 mg tablet 500 mg PO DAILY 07/16/24 12/08/24 History valganciclovir 450 mg tablet 900 mg PO BID 07/16/24 12/08/24 History betamethasone, augmented 0.05 % 0.05 appl topical DAILY 12/08/24 12/08/24 History topical cream cholecalciferol (vitamin D3) 50 50 mcg PO DAILY 12/08/24 12/08/24 History mcg (2,000 unit) tablet letermovir 480 mg tablet 480 mg PO DAILY 12/08/24 12/08/24 History magnesium 250 mg tablet 400 mg PO DAILY 12/08/24 12/08/24 History mirtazapine 15 mg PO DAILY 12/08/24 12/08/24 History pramoxine-zinc acetate 1 %-0.1 % 1 ea topical DAILY 12/08/24 12/08/24 History lotion propranolol 10 mg tablet 10 mg PO DAILY 12/08/24 12/08/24 History tacrolimus 1 mg capsule, 1 mg PO DAILY 12/08/24 12/08/24 History immediate-release Allergies Allergy/AdvReac Type Severity Reaction Status Date / Time No Known Allergies Allergy Verified 12/08/24 14:25 [No Known Allergies*] Hem/Onc Consult Result - Labs CBC & Chem 7: 01/29/25 16:45 01/29/25 14:49 Assessment and Plan Patient Active problem list reviewed?: Yes (1) T-cell lymphoma Status: Acute Assessment and plan: 1. This is a 44-year-old male admitted for sepsis, febrile neutropenia. He has history of recurrent T-cell lymphoma, he received allogeneic stem cell transplant in [facility] in September 2024 and developed recurrent shortly after that in October 2024. 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 Received 6 cycles of chemotherapy with CHOEP REGIMEN FROM DECEMBER TO APRIL 2015. Because of high suspicion for DATA ANALYTICS ANALYST involvement patient was admitted at [facility] for inpatient chemotherapy. Patient underwent repeat brain MRI at [facility] which revealed leptomeningeal enhancement. He was treated for DATA ANALYTICS ANALYST involvement. He was started on IVAC regimen (ifosfamide/etoposide/high dose AraC) on 04/23/2024. He completed 4th cycle of IVAC on 07/09/2024. Repeat LP on 07/01 showed normalization of protein, flow cytometry and cytology were negative. He underwent repeat PET-CT, brain and spine MRI as well as CSF studies performed end of July showed patient to be in complete remission. He was admitted 08/09/2024 and received last cycle of IVAC as bridging before allotransplantation. He underwent Allo stem cell transplant in September 2024, he had a prolonged hospitalization with septic shock due to Pseudomonas bacteremia and brief intubation with hypoxic respiratory failure due to RSV pneumonia. Unfortunately however, he relapsed in December 2024 within 3 months of Allo stem cell transplant. He was started urgently on BV-CHP regimen 1st week of December 2024. He is under the care of Dr. Gifty Lenz at [facility]. He passed all of the regulatory approval steps and was able to receive Valemetostat as single patient IND at [facility]. He was on valemetostat for a couple of weeks in December 2024. Unfortunately he progressed on this and was admitted to [facility] last week with severe hypercalcemia. He received blood transfusion and Nplate for cytopenias. He was found to have extensive and progressive lymphadenopathy as well as circulating cells. He was started on high-dose cytarabine monotherapy at a dose of 2 g per m2 Q 24 hours x2 doses, last dose was on 01/21/2025. He has developed severe pancytopenia in spite of Neulasta and blood/platelet transfusion support. 2. Febrile neutropenia/severe thrombocytopenia. Patient was given a dose of cefepime and vancomycin in the office. Blood cultures were sent. IV fluids and platelets were administered. Direct admission to hospitalist service today which is much appreciated. 3. Hypercalcemia secondary to malignancy. He has also developed acute kidney injury. IV fluids, pamidronate and renal consultation. 4. Mouth sores. Start nystatin and continue acyclovir. Thank you will follow with you. - Time Spent With Patient Time Spent with Patient (in minutes): 30
[2025-01-29] MEDS: 0.9 % Sodium Chloride 1,000 ML 2500 ML IVCONT ×2 (15:11→16:52)
[2025-01-29 15:30] LABS: Creatinine Clr Calc Pharmacy 45.9; Estimated Glomerular Filt Rate 34
[2025-01-29 15:41] LABS: Appearance Urine Clear; Color Urine Yellow; Glucose Urine UA Negative (Negative); Leukocyte Esterase Urine Negative (Negative); Nitrite Urine Negative (Negative); PH 5.5 (5.0-9.0); Specific Gravity - Urine 1.015 (1.005-1.025); Urine Blood Negative (Negative); Urine Ketones Negative (Negative); Urine Protein Negative (Neg-Trace)
[2025-01-29 15:58] LABS: Lactic Acid 2.2 mmol/L (0.5-2.0)
--- NOTE | 2025-01-29 16:26 | PM.CNNEP ---
History of Present Illness Reason for Consult Consult date: 01/29/25 Chief Complaint Chief complaint: FEVER, THROMBOCYTOPENIA,HYPERCALCEMIA History of Present Illness Narrative: 44 y/o male with T cell lymphoma diagnosed in 2014, reports gets treatment through [facility] and here at [place] sees Dr Kirk. Patient is here with hypercalcemia and GINNY. Patient states he has not been feeling well for a few days. Reports ongoing upper respiratory and nasal congestion- reports had nasal swab for viral illness which was negative. States he has had hypercalcemia in the past (calcium was reportedly 19) and this was due to a medication he was receiving for treatment of his cancer. He denies chest pain, shortness of breath, abdominal pain, nausea/vomiting/diarrhea. Denies lower extremity swelling. Reports poor PO intake over the last few days. Review of Systems Constitutional: Reports fatigue and Reports malaise Reports other (congestion) Cardiovascular: Reports chest pain, Denies leg edema and Denies dyspnea Respiratory: Reports cough and Denies dyspnea Gastrointestinal: Denies abdominal pain, Reports constipation, Denies diarrhea, Denies nausea and Denies vomiting Genitourinary: Denies hematuria, Denies oliguria, Denies dysuria and Denies flank pain Musculoskeletal: Denies back pain and Denies arthralgias Skin/Breast: Denies rash Denies paresthesias Endocrine: Reports fatigue PMFSH Past Medical History Medical History (Updated 01/29/25 @ 16:34 by Rae Wang, DNP, CONTAINER FILLER-) Port-A-Cath in place Non-Hodgkin lymphoma Low back pain Asthma Family History Family History Mother Meningitis Father Surgical History Surgical History History of removal of Port-a-Cath History of bone marrow biopsy Social History Social History Household Members: Spouse and Children Housing: House Alcohol intake: current Alcohol intake frequency: holidays/special occasions only Patient Tobacco Use Status: Never used Tobacco Advance Directives: No Advance Directives Information Provided: No service: No Current occupational status: employed and unemployed Meds Allergies Allergy/AdvReac Type Severity Reaction Status Date / Time No Known Allergies Allergy Verified 12/08/24 14:25 [No Known Allergies*] Active Medications: Current Medications Acetaminophen (Acetaminophen 325 Mg Tablet) 650 mg PO Q6H PRN PRN Reason: Pain, Mild 1-3,fever,headache Furosemide (Furosemide 40 Mg/4 Ml Vial) 40 mg IVPUSH BID@0900,1800 [facility]; Protocol Sodium Chloride (Ns) 1,000 mls @ 150 mls/hr IVCONT .Q6H40M [facility] Last Admin: 01/29/25 15:19 Dose: Not Given Vancomycin HCl (Vancomycin/Ns) 2,000 mg in 500 mls @ 250 mls/hr IV ONCE ONE Stop: 01/29/25 16:40 Cefepime HCl (Maxipime) 2 gm in 50 mls @ 100 mls/hr IV Q12H [facility] Magnesium Hydroxide (Milk Of Magnesia 30 Ml Oral.Susp) 30 ml PO DAILY PRN PRN Reason: Constipation Melatonin (Melatonin 3 Mg Tablet) 6 mg PO BEDTIME PRN PRN Reason: Insomnia Nystatin (Nystatin Oral Susp 500,000 Unit/5 Ml Oral.Susp) 500,000 unit PO QID [facility]; Protocol Pharmacy Consult (Consult Rx Vancomycin Dosing) 1 each MISCELLANE DAILY PRN PRN Reason: Consult order Sodium Chloride (0.9 % Sodium Chloride Flush 3 Ml Syringe) 3 ml IVFLUSH QSHIFT [facility] Last Admin: 01/29/25 15:20 Dose: Not Given Home Medications ?Medication ?Instructions ?Recorded ?Confirmed ?Last Taken ?Type amlodipine 10 mg PO DAILY 03/09/22 12/08/24 04/17/24 History losartan 50 mg tablet 50 mg PO DAILY 03/04/24 12/08/24 Unknown History atovaquone 750 mg/5 mL oral 1,500 mg PO DAILY 05/15/24 12/08/24 Unknown History suspension folic acid 1 mg tablet 1 mg PO DAILY 05/15/24 12/08/24 Unknown History thiamine HCl (vitamin B1) 100 mg 100 mg PO DAILY 05/15/24 12/08/24 Unknown History tablet acetaminophen 300 mg PO Q8H PRN Headache 06/01/24 12/08/24 Unknown History acetazolamide 250 mg tablet 500 mg PO 2XD 06/01/24 12/08/24 Unknown History atorvastatin 40 mg tablet 40 mg PO BEDTIME 06/01/24 12/08/24 Unknown History caffeine 200 mg PO Q8H PRN Headache 06/01/24 12/08/24 Unknown History olanzapine 5 mg tablet 5 mg PO BID 06/01/24 12/08/24 Unknown History oxycodone 5 mg capsule 5 mg PO Q6H PRN Pain 06/01/24 12/08/24 Unknown History polyethylene glycol 3350 17 gram 17 g PO BID PRN Constipation 06/01/24 12/08/24 Unknown History oral powder packet (Miralax) propranolol 30 mg PO 3XD 06/01/24 12/08/24 Unknown History sennosides 8.6 mg capsule (senna) 8.6 mg PO BID PRN Constipation 06/01/24 12/08/24 Unknown History levofloxacin 500 mg tablet 500 mg PO DAILY 07/16/24 12/08/24 Unknown History valganciclovir 450 mg tablet 900 mg PO BID 07/16/24 12/08/24 Unknown History betamethasone, augmented 0.05 % 0.05 appl topical DAILY 12/08/24 12/08/24 Unknown History topical cream cholecalciferol (vitamin D3) 50 50 mcg PO DAILY 12/08/24 12/08/24 Unknown History mcg (2,000 unit) tablet letermovir 480 mg tablet 480 mg PO DAILY 12/08/24 12/08/24 Unknown History magnesium 250 mg tablet 400 mg PO DAILY 12/08/24 12/08/24 Unknown History mirtazapine 15 mg PO DAILY 12/08/24 12/08/24 Unknown History pramoxine-zinc acetate 1 %-0.1 % 1 ea topical DAILY 12/08/24 12/08/24 Unknown History lotion propranolol 10 mg tablet 10 mg PO DAILY 12/08/24 12/08/24 Unknown History tacrolimus 1 mg capsule, 1 mg PO DAILY 12/08/24 12/08/24 Unknown History immediate-release Physical Exam Vital Signs: Last Vital Signs Temp 98.5 F 01/29/25 15:41 Pulse 105 H 01/29/25 15:41 Resp 18 01/29/25 15:41 BP 122/71 01/29/25 15:41 Pulse Ox 99 01/29/25 15:41 O2 Del Method Nasal Cannula 01/29/25 15:41 O2 Flow Rate 2 01/29/25 14:35 BMI result Body Mass Index 25.1 Const General: no acute distress, alert and awake Resp Effort & Inspection: normal respiratory effort and able to speak in complete sentences Auscultation: rhonchi Cardio Rate: regular rate Rhythm: regular rhythm Heart sounds: S1 normal heart sound present and S2 normal heart sound present GI Palpation (GI): Soft to palpation and nontender General: Yes no CVA tenderness Back/Spine/Pelvis Back: no CVA tenderness Skin Rashes: no rashes Extrem General: No edema and No pedal edema Results Lab Results 01/29/25 14:49 Lab results: Chemistry 01/29/25 14:49 Creatinine 2.12 H Urinalysis 01/29/25 15:22 Urine Color Yellow Urine Appearance Clear Urine pH 5.5 Ur Specific [place] 1.015 Urine Protein Negative Urine Glucose (UA) Negative Urine Ketones Negative Urine Blood Negative Urine Nitrite Negative Ur Leukocyte Esterase Negative Assessment and Plan (1) T-cell lymphoma: Status: Resolved (2) Thrombocytopenia: Status: Acute (3) Hypercalcemia: Status: Acute Plan Patient with T cell lymphoma with GINNY and hypercalcemia differential dx includes tumor lisis syndrome- if uric acid is high, consider acute urate nephropathy; lymphoma infiltrating kidney or abdominal lymphadenopathy causing obstruction will get renal US will check phosphorous and uric acid levels hypercalcemia secondary to malignancy - recommend fluids and lasix, 1x dose of pamidronate disodium avoid nephrotoxins close I&O monitoring, regular blood pressure checks daily renal function checks and electrolyte studies will continue to follow Discussed with Dr Tavon Gutierrez Date of Service Date of Service: 01/29/25
[2025-01-29] MEDS: Nystatin Oral Susp 500,000 UNIT/5 ML ORAL.SUSP 500000 UNIT PO ×2 (16:50→22:56)
[2025-01-29] MEDS: vancomycin/NS 2,000 MG/500 ML PLAST..BAG 250 MG IV (16:51)
[2025-01-29 16:53] LABS: Mean Corpuscular HGB Conc 34.8 g/dl (31.0-36.0); Mean Corpuscular Hemoglobin 33.8 pg (27.0-33.0); Mean Corpuscular Volume 97.1 fL (80.0-98.0); Red Blood Count 2.07 X10*6/uL (4.60-5.80); Red Cell Distribution Width 19.4 % (11.0-16.0)
--- NOTE | 2025-01-29 16:54 | W.PM.IDCN ---
History of Present Illness Data of Consult Service Date: 01/29/25 Requesting physician: Case Macias Primary Care Provider: MD SHIRLEY Ruff Reason for consult: fever of unknown origin He presents with fever at Oncology office present for a day. He also has rash on back. He had finished Levaquin for seven days due to colitis. He is on prophylactic Acyclovir 400 mg tid and Mepron. He has T cell lymphoma diagnosed 2014 and seen at [facility]. He has GINNY also. Review of Systems Review of Systems: Yes all other systems are reviewed and are negative [facility] Past Medical History Medical History Port-A-Cath in place Non-Hodgkin lymphoma Low back pain Asthma Family History Family History Mother Meningitis Father Surgical History Surgical History History of removal of Port-a-Cath History of bone marrow biopsy Social History Social History Household Members: Spouse and Children Housing: House Alcohol intake: current Alcohol intake frequency: holidays/special occasions only Patient Tobacco Use Status: Never used Tobacco Advance Directives: No Advance Directives Information Provided: No service: No Current occupational status: employed and unemployed Meds Allergies Allergy/AdvReac Type Severity Reaction Status Date / Time No Known Allergies Allergy Verified 12/08/24 14:25 [No Known Allergies*] Active Medications: Current Medications Acetaminophen (Acetaminophen 325 Mg Tablet) 650 mg PO Q6H PRN PRN Reason: Pain, Mild 1-3,fever,headache Furosemide (Furosemide 40 Mg/4 Ml Vial) 40 mg IVPUSH BID@0900,1800 [facility]; Protocol Sodium Chloride (Ns) 1,000 mls @ 150 mls/hr IVCONT .Q6H40M [facility] Last Admin: 01/29/25 15:19 Dose: Not Given Cefepime HCl (Maxipime) 2 gm in 50 mls @ 100 mls/hr IV Q12H [facility] Magnesium Hydroxide (Milk Of Magnesia 30 Ml Oral.Susp) 30 ml PO DAILY PRN PRN Reason: Constipation Melatonin (Melatonin 3 Mg Tablet) 6 mg PO BEDTIME PRN PRN Reason: Insomnia Nystatin (Nystatin Oral Susp 500,000 Unit/5 Ml Oral.Susp) 500,000 unit PO QID [facility]; Protocol Pharmacy Consult (Consult Rx Vancomycin Dosing) 1 each MISCELLANE DAILY PRN PRN Reason: Consult order Sodium Chloride (0.9 % Sodium Chloride Flush 3 Ml Syringe) [facility] Last Admin: 01/29/25 15:20 Dose: Not Given Home Medications ?Medication ?Instructions ?Recorded ?Confirmed ?Last Taken ?Type amlodipine 10 mg PO DAILY 03/09/22 12/08/24 04/17/24 History losartan 50 mg tablet 50 mg PO DAILY 03/04/24 12/08/24 Unknown History atovaquone 750 mg/5 mL oral 1,500 mg PO DAILY 05/15/24 12/08/24 Unknown History suspension folic acid 1 mg tablet 1 mg PO DAILY 05/15/24 12/08/24 Unknown History thiamine HCl (vitamin B1) 100 mg 100 mg PO DAILY 05/15/24 12/08/24 Unknown History tablet acetaminophen 300 mg PO Q8H PRN Headache 06/01/24 12/08/24 Unknown History acetazolamide 250 mg tablet 500 mg PO 2XD 06/01/24 12/08/24 Unknown History atorvastatin 40 mg tablet 40 mg PO BEDTIME 06/01/24 12/08/24 Unknown History caffeine 200 mg PO Q8H PRN Headache 06/01/24 12/08/24 Unknown History olanzapine 5 mg tablet 5 mg PO BID 06/01/24 12/08/24 Unknown History oxycodone 5 mg capsule 5 mg PO Q6H PRN Pain 06/01/24 12/08/24 Unknown History polyethylene glycol 3350 17 gram 17 g PO BID PRN Constipation 06/01/24 12/08/24 Unknown History oral powder packet (Miralax) propranolol 30 mg PO 3XD 06/01/24 12/08/24 Unknown History sennosides 8.6 mg capsule (senna) 8.6 mg PO BID PRN Constipation 06/01/24 12/08/24 Unknown History levofloxacin 500 mg tablet 500 mg PO DAILY 07/16/24 12/08/24 Unknown History valganciclovir 450 mg tablet 900 mg PO BID 07/16/24 12/08/24 Unknown History betamethasone, augmented 0.05 % 0.05 appl topical DAILY 12/08/24 12/08/24 Unknown History topical cream cholecalciferol (vitamin D3) 50 50 mcg PO DAILY 12/08/24 12/08/24 Unknown History mcg (2,000 unit) tablet letermovir 480 mg tablet 480 mg PO DAILY 12/08/24 12/08/24 Unknown History magnesium 250 mg tablet 400 mg PO DAILY 12/08/24 12/08/24 Unknown History mirtazapine 15 mg PO DAILY 12/08/24 12/08/24 Unknown History pramoxine-zinc acetate 1 %-0.1 % 1 ea topical DAILY 12/08/24 12/08/24 Unknown History lotion propranolol 10 mg tablet 10 mg PO DAILY 12/08/24 12/08/24 Unknown History tacrolimus 1 mg capsule, 1 mg PO DAILY 12/08/24 12/08/24 Unknown History immediate-release Physical Exam Vital Signs: Vital Signs: Last Vital Signs Temp 98.5 F 01/29/25 15:41 Pulse 105 H 01/29/25 15:41 Resp 18 01/29/25 15:41 BP 122/71 01/29/25 15:41 Pulse Ox 99 01/29/25 15:41 O2 Del Method Nasal Cannula 01/29/25 15:41 O2 Flow Rate 2 01/29/25 14:35 BMI result Body Mass Index 25.1 Const: General: cooperative HEENT: Head: Yes normal to inspection Face and sinus: Yes normal facial exam Mouth: Normal oral and palatal mucosa present Teeth and gingiva: dentition normal Eyes: General: appearance normal, both eyes and all related structures Pupils: Equal, round and reactive pupils present Chest: Chest palpation & inspection: normal inspection of the chest Resp: Effort & Inspection: normal respiratory effort Cardio: Rate: regular rate Rhythm: regular rhythm GI: Palpation (GI): Soft to palpation and nontender : General: Yes no CVA tenderness Back/Spine/Pelvis: Back: no CVA tenderness Skin: Other: rash back itchy and maculopapular Neuro: General: moves all extremities Cranial nerves: Yes Equal, round and reactive pupils present Extrem: General: Yes normal to inspection Psych: Appearance: grossly normal Results Labs 01/29/25 16:45 01/29/25 14:49 Labs: BMP 05/30/25 14:49 Creatinine 2.12 H Urine 01/29/25 Range/Units 15:22 Urine Color Yellow Urine Appearance Clear Urine pH 5.5 (5.0-9.0) Ur Specific [place] 1.015 (1.005-1.025) Urine Protein Negative (Neg-Trace) mg/dL Urine Glucose (UA) Negative (Negative) mg/dL Assessment and Plan (1) Thrombocytopenia: Status: Acute (2) T-cell lymphoma: Status: Resolved Plan rashs may be due to Levaquin Possible other infection Continue Vancomycin and Cefepime steroids may be appropriate await cultures.
[2025-01-29 16:57] LABS: Reflex Lactate? Lactic Acid Added
[2025-01-29 17:07] LABS: Platelet Count 37 X10*3/uL (160-400); White Blood Count 2.4 X10*3/uL (4.8-10.8)
[2025-01-29 17:14] LABS: Hematocrit 20.1 % (42.0-52.0)
[2025-01-29 17:21] LABS: Calcium 12.5 mg/dL (8.4-10.2); Phosphorus 3.5 mg/dL (2.7-4.5)
--- NOTE | 2025-01-29 17:28 | PHA.PROG ---
Admission Date/Time: January 29, 2025 13:12 Indication: sepsis Weight in k.2 kg Serum Creatinine - Last 168 Hours 01/29/25 14:49 Creatinine 2.12 H Estimated CrCl and GFR - Last 168 Hours 01/29/25 14:49 Estim Creat Clear Calc 45.9 Estimated GFR 34 Vancomycin Loading Dose: 2000 Current Vancomycin Dosing Regimen: 1250 mg Vancomycin Monitoring using AUC goal of 400 - 600 range with trough as surrogate marker: 553 Date and Time for next Vancomycin Level to be drawn: 01/31 @1500 Pharmacist Comments on Vancomycin Plan: Vancomycin dosing will take advantage of Peer[employer] as a clinical decision support tool that uses Bayesian modeling to calculate individual patient's pharmacokinetic parameters and forecast the patient's drug concentration time course with the target goal AUC 24 range of 400 - 600 mg/L/hr.
[2025-01-29 17:51] LABS: ~Lactic Acid-LAB USE ONLY 1.5 mmol/L (0.5-2.0)
[2025-01-29] MEDS: Acetaminophen 1,000 MG/100 ML PIGGYBACK 400 MG IV (17:55)
[2025-01-29] MEDS: Pamidronate Disodium 60 MG in 0.9 % Sodium Chloride 250 ML 130 MG IV (18:42)
[2025-01-29] MEDS: Pantoprazole Sodium 40 MG/10 ML VIAL IVPUSH (19:57)
[2025-01-29] MEDS: Lactated Ringers 1,000 ML 999 ML IV (19:58)
--- NOTE | 2025-01-29 20:10 | PC.NURSE ---
Patient came directly from Oncology with platelets running. Platelets completed shortly after arrival @14:35, refer to MAR for vital signs.
--- NOTE | 2025-01-29 20:51 | PC.NURSE ---
Called Pharmacy multiple times regarding Aredia medication to find out at 18:35 that pharmacy had made the medication when patient was booked for Med surg room 375 and was stored in the S3 refrigerator.
[2025-01-29] MEDS: Albumin Human 25 % 100 ML 133.33 ML IV (21:17)
--- NOTE | 2025-01-29 22:13 | PHA.MEDREC ---
Addendum entered by Mallory Esparza 01/29/25 22:38: Pt states he will call his brother in the AM to bring in his Antiviral medications. Addendum entered by Alex uHbbard [facility] 01/29/25 22:36: med rec reviewed Original Note: Pharmacy Consult ? Medication Reconciliation Pharmacy has completed the medication reconciliation. Spoke with pt who seemed very getting blood drawn during our interaction and was very uncomfortable during this time. Pt had a list printed from [facility] on 01/20/2025 that he stated was up to date I was able to use to complete the med rec with.
[2025-01-29] MEDS: cefEPime HCl/D5W 2 GM/50 ML PIGGYBACK IV (22:55)
[2025-01-29] MEDS: 0.9 % Sodium Chloride 1,000 ML 150 ML IVCONT (22:56)
[2025-01-29] MEDS: diphenhydrAMINE HCL 50 MG/ML VIAL 25 MG IVPUSH (22:56)
[2025-01-29] MEDS: 0.9 % Sodium Chloride Flush 3 ML SYRINGE IVFLUSH (22:56)
[2025-01-29] MEDS: Acetaminophen 325 MG TABLET 975 MG PO (22:56)
[2025-01-29 23:26] LABS: Mean Corpuscular HGB Conc 34.3 g/dl (31.0-36.0); Mean Corpuscular Volume 96.1 fL (80.0-98.0); Mean Platelet Volume 8.9 fL (9.4-12.4); Red Blood Count 1.79 X10*6/uL (4.60-5.80); Red Cell Distribution Width 19.3 % (11.0-16.0); WBC ABN SCTR FOR CBC 1
[2025-01-29 23:33] LABS: White Blood Count 1.8 X10*3/uL (4.8-10.8)
[2025-01-29 23:34] LABS: Hematocrit 17.2 % (42.0-52.0); Hemoglobin 5.9 g/dl (14.0-18.0)
[2025-01-29 23:35] LABS: Platelet Count 14 X10*3/uL (160-400)
[2025-01-29 23:41] LABS: Alanine Aminotransferase 6 U/L (0-40); Albumin Level 3.2 g/dL (3.5-5.0); Alkaline Phosphatase 95 U/L (39-117); Anion Gap 11 (12-20); Aspartate Amino Transferase 24 U/L (5-37); Bilirubin Total 1.1 mg/dL (0.0-1.0); Blood Urea Nitrogen 25 mg/dL (9-16); Calcium 11.9 mg/dL (8.4-10.2); Carbon Dioxide 27 mmol/L (22-29); Chloride 110 mmol/L (96-108); Creatinine Clr Calc Pharmacy 52.6; Estimated Glomerular Filt Rate 40; Glucose Random 92 mg/dL (60-115); Potassium 4.1 mmol/L (3.3-5.1); Sodium 144 mmol/L (135-145); Total Protein 4.9 g/dL (6.5-8.0)
[2025-01-30] VITALS (18 sets, daily range): BP systolic 90–137; BP diastolic 56–77; PULSE 64–114; RESP 15–18; TEMP 36–37.8; O2SAT 93–97
[2025-01-30 00:35] LABS: Atypical Lymph Absolute Manual 0.2 x10*3/uL; Atypical Lymphs Percent Manual 10 % (0-6); Band Neutrophils Percent 9 % (3-5); Eosinophils Absolute Manual 0.1 X10*3/uL (0.0-0.4); Eosinophils Percent Manual 5 % (0-4); Lymphocytes Absolute Manual 0.5 X10*3/uL (1.2-4.9); Lymphocytes Percent Manual 29 % (20-40); Monocytes Absolute Manual 0.6 X10*3/uL (0.1-1.2); Monocytes Percent Manual 33 % (2-11); Neutrophils Absolute Manual 0.4 X10*3/uL (2.0-8.3); Neutrophils Percent Manual 14 % (45-73); RBC Morphology NOTED
[2025-01-30 00:36] LABS: Dohle Bodies PRESENT; Hypochromasia 1+ (5-14) /OIF; Ovalocytes 1+ (5-14) /OIF; Platelet Estimate DECREASED (NORMAL); Platelet Morphology Comment NORMAL; Tear Drop Cells 2+ (3-5) /OIF; Toxic Granulation PRESENT; WBC Morphology Comment DYSMORPHIC
[2025-01-30 01:56] LABS: Influenza A PCR NEGATIVE (Negative); Influenza B PCR NEGATIVE (Negative); Resp Syncy Virus RNA Qual PCR NEGATIVE (Negative); SARS COV2 PCR INHOUSE NEGATIVE (Negative)
[2025-01-30] MEDS: Pantoprazole Sodium 40 MG/10 ML VIAL IVPUSH ×2 (05:40→17:05)
--- NOTE | 2025-01-30 06:42 | PM.EVENT ---
Event Note Date of Service: 01/30/25 Event Note: Patient developed hypotension overnight 86/54. Another 1L of LR and albumin IV given. Recheck labs showed Hbg 5.9 and platelets 14. Two units of PRBCs and 2 units of platelets were ordered. Time Spent With Patient Time: Total time managing care of this patient today ____ minutes.
[2025-01-30 07:34] LABS: Hematocrit 25.7 % (42.0-52.0); Hemoglobin 8.8 g/dl (14.0-18.0); Mean Corpuscular HGB Conc 34.2 g/dl (31.0-36.0); Mean Corpuscular Hemoglobin 31.4 pg (27.0-33.0); Mean Corpuscular Volume 91.8 fL (80.0-98.0); Mean Platelet Volume 10.6 fL (9.4-12.4); Red Cell Distribution Width 18.6 % (11.0-16.0)
[2025-01-30 07:58] LABS: WBC ABN SCTR FOR CBC 1
[2025-01-30 07:59] LABS: Platelet Count 11 X10*3/uL (160-400); White Blood Count 2.2 X10*3/uL (4.8-10.8)
[2025-01-30 08:05] LABS: Atypical Lymph Absolute Manual 0.4 x10*3/uL; Atypical Lymphs Percent Manual 17 % (0-6); Band Neutrophils Percent 7 % (3-5); Blast Percent 1 %; Eosinophils Absolute Manual 0.3 X10*3/uL (0.0-0.4); Eosinophils Percent Manual 12 % (0-4); Lymphocytes Absolute Manual 0.7 X10*3/uL (1.2-4.9); Lymphocytes Percent Manual 33 % (20-40); Monocytes Absolute Manual 0.4 X10*3/uL (0.1-1.2); Monocytes Percent Manual 16 % (2-11); Neutrophils Absolute Manual 0.5 X10*3/uL (2.0-8.3); Neutrophils Percent Manual 14 % (45-73)
[2025-01-30 08:13] LABS: Dohle Bodies PRESENT; Hypochromasia 1+ (5-14) /OIF; Ovalocytes 1+ (5-14) /OIF; Platelet Estimate DECREASED (NORMAL); Platelet Morphology Comment NORMAL; RBC Morphology NOTED; Toxic Granulation PRESENT
[2025-01-30 08:34] LABS: Anion Gap 10 (12-20); Blood Urea Nitrogen 19 mg/dL (9-16); Calcium 12.9 mg/dL (8.4-10.2); Carbon Dioxide 29 mmol/L (22-29); Chloride 107 mmol/L (96-108); Creatinine Clr Calc Pharmacy 59.3; Estimated Glomerular Filt Rate 46; Glucose Random 84 mg/dL (60-115); Potassium 4.3 mmol/L (3.3-5.1); Sodium 142 mmol/L (135-145)
[2025-01-30] MEDS: Atovaquone 750 MG/5 ML ORAL.SUSP 1500 MG PO (09:12)
[2025-01-30] MEDS: cefEPime HCl/D5W 2 GM/50 ML PIGGYBACK IV ×2 (09:14→21:37)
[2025-01-30] MEDS: Nystatin Oral Susp 500,000 UNIT/5 ML ORAL.SUSP 500000 UNIT PO ×4 (09:14→21:37)
[2025-01-30] MEDS: levETIRAcetam 250 MG TABLET 750 MG PO ×2 (09:14→21:37)
[2025-01-30] MEDS: Propranolol HCL 10 MG TABLET PO (09:14)
[2025-01-30] MEDS: Acyclovir 200 MG CAPSULE 400 MG PO ×3 (09:14→21:37)
[2025-01-30] MEDS: Magnesium Oxide 400 MG TABLET PO ×2 (09:14→21:37)
[2025-01-30] MEDS: Acetaminophen 325 MG TABLET 650 MG PO (09:26)
[2025-01-30] MEDS: Furosemide 20 MG/2 ML VIAL IVPUSH ×2 (11:33→17:04)
[2025-01-30] MEDS: 0.9 % Sodium Chloride 1,000 ML 150 ML IVCONT ×2 (11:33→15:02)
[2025-01-30] MEDS: Ammonium Lactate 12 % Lotion 226 GM BOTTLE 1 APPL TOPICAL ×2 (11:42→21:38)
--- NOTE | 2025-01-30 14:09 | P.PNIM_ITS ---
Subjective Subjective Date of Service: 01/30/25 Interval History: seen and evaluated this morning feels little better Hb improved to 8.8 after transfusion overnight PLT dropped to 11 One more fever overnight but non since then no other events Review of Systems Review of Systems: Yes all other systems are reviewed and are negative Physical Exam 2 Vital Signs: Vital Signs: Last Vital Signs Temp 99 F 01/30/25 11:42 Pulse 91 01/30/25 11:42 Resp 16 01/30/25 11:42 BP 95/65 01/30/25 11:42 Pulse Ox 97 01/30/25 11:22 O2 Del Method Nasal Cannula 01/30/25 11:22 O2 Flow Rate 3 01/30/25 11:22 BMI result Body Mass Index 25.1 Const: Other: Constitutional : Awake, interactive, frail looking Neck : Normal inspection, Supple Cardiovascular : RRR, no JVP, lower extremity edema Respiratory : good bilateral air entry, fine Lt side crackles, wheezes or rhonchi Gastrointestinal: soft, lax, Normal bowel sounds, Non tender Skin : Warm, Dry skin with rash on back Neurological : Alert & oriented x3, No focal deficit Objective Data Active Medications Acetaminophen (Acetaminophen 325 Mg Tablet) 650 mg PO Q6H PRN PRN Reason: Pain, Mild 1-3,fever,headache Last Admin: 01/30/25 09:26 Dose: 650 mg Documented By: MAXIMILIAN Acyclovir (Acyclovir 200 Mg Capsule) 400 mg PO TID [facility] Last Admin: 01/30/25 09:14 Dose: 400 mg Documented By: MAXIMILIAN Atovaquone (Atovaquone 750 Mg/5 Ml Oral.Susp) 1,500 mg PO DAILY@0800 [facility] Last Admin: 01/30/25 09:12 Dose: 1,500 mg Documented By: MAXIMILIAN Diphenhydramine HCl (Diphenhydramine Hcl 50 Mg/Ml Vial) 25 mg IVPUSH Q6H PRN PRN Reason: Itching Furosemide (Furosemide 20 Mg/2 Ml Vial) 20 mg IVPUSH BID@0900,1800 [facility]; Protocol Last Admin: 01/30/25 11:33 Dose: 20 mg Documented By: MAXIMILIAN Sodium Chloride (Ns) 1,000 mls @ 150 mls/hr IVCONT .Q6H40M [facility] Last Admin: 01/30/25 11:33 Dose: 150 mls/hr Documented By: MAXIMILIAN Cefepime HCl (Maxipime) 2 gm in 50 mls @ 100 mls/hr IV Q12H [facility] Last Infusion: 01/30/25 11:45 Dose: Infused Documented By: MAXIMILIAN Vancomycin HCl 1,250 mg/ (Sodium Chloride) 250 mls @ 166.667 mls/hr IV Q24H [facility] Lactic Acid (Ammonium Lactate 12 % Lotion 226 Gm Bottle) 1 appl TOPICAL BID [facility]; Protocol Last Admin: 01/30/25 11:42 Dose: 1 appl Documented By: MAXIMILIAN Levetiracetam (Levetiracetam 250 Mg Tablet) 750 mg PO BID [facility] Last Admin: 01/30/25 09:14 Dose: 750 mg Documented By: MAXIMILIAN Magnesium Hydroxide (Milk Of Magnesia 30 Ml Oral.Susp) 30 ml PO DAILY PRN PRN Reason: Constipation Magnesium Oxide (Magnesium Oxide 400 Mg Tablet) 400 mg PO BID [facility] Last Admin: 01/30/25 09:14 Dose: 400 mg Documented By: MAXIMILIAN Melatonin (Melatonin 3 Mg Tablet) 6 mg PO BEDTIME PRN PRN Reason: Insomnia Mirtazapine (Mirtazapine 15 Mg Tablet) 15 mg PO BEDTIME [facility] Non-Formulary Medication (Letermovir) 480 mg PO DAILY [facility] Nystatin (Nystatin Oral Susp 500,000 Unit/5 Ml Oral.Susp) 500,000 unit PO QID [facility]; Protocol Last Admin: 01/30/25 13:50 Dose: 500,000 unit Documented By: MAXIMILIAN Pantoprazole Sodium (Pantoprazole Sodium 40 Mg/10 Ml Vial) 40 mg IVPUSH BID@0630,1630 [facility] Last Admin: 01/30/25 05:40 Dose: 40 mg Documented By: ANDREA Pharmacy Consult (Consult Rx Vancomycin Dosing) 1 each MISCELLANE DAILY PRN PRN Reason: Consult order Polyethylene Glycol (Polyethylene Glycol 3350 17 Gm Powd.Pack) 17 gm PO BID PRN PRN Reason: Constipation Propranolol HCl (Propranolol Hcl 10 Mg Tablet) 10 mg PO TID [facility]; Protocol Last Admin: 01/30/25 09:14 Dose: 10 mg Documented By: MAXIMILIAN Sodium Chloride (0.9 % Sodium Chloride Flush 3 Ml Syringe) 3 ml IVFLUSH QSHIFT KAREN Last Admin: 01/30/25 09:14 Dose: Not Given Documented By: MAXIMILIAN Non-Admin Reason: IV Running Labs 01/30/25 07:12 01/30/25 07:12 Labs: Laboratory Results - last 24 hr 01/29/25 01/29/25 01/29/25 09:45 14:49 15:22 MCV MCH MCHC RDW Plt Count MPV Immature Gran % (Auto) Neut % (Auto) Lymph % (Auto) [place] % (Auto) Eos % (Auto) Baso % (Auto) Lymph # (Auto) [place] # (Auto) Eos # (Auto) Baso # (Auto) Abs Immat Gran (auto) Absolute Neuts (auto) Absolute Nucleated RBC Nucleated RBC % (auto) Neutrophils % (Manual) Band Neutrophils % Lymphocytes % (Manual) Atypical Lymphs % (Man) Monocytes % (Manual) Eosinophils % (Manual) Blast Cells % (Manual) Abs Neuts (Manual) Lymphocytes # (Manual) Atyp Lymphs # (Manual) Monocytes # (Manual) Eosinophils # (Manual) Toxic Granulation Dohle Bodies WBC Morphology Comment Platelet Estimate Plt Morphology Comment RBC Morphology Hypochromasia Tear Drop Cells Ovalocytes Anion Gap Estim Creat Clear Calc 45.9 Estimated GFR 34 Random Glucose Lactic Acid 2.2 H* Lactic Acid F/U @ 2Hr Uric Acid Calcium Phosphorus Total Bilirubin AST ALT Alkaline Phosphatase Total Protein Albumin Urine Color Yellow Urine Appearance Clear Urine pH 5.5 Ur Specific [place] 1.015 Urine Protein Negative Urine Glucose (UA) Negative Urine Ketones Negative Urine Blood Negative Urine Nitrite Negative Ur Leukocyte Esterase Negative Influenza Type A (PCR) Influenza Type B (PCR) RSV RNA Qual (PCR) SARS-CoV-2 RNA (RT-PCR) Blood Type Unknown Antibody Screen NEGATIVE Crossmatch 01/29/25 01/29/25 01/29/25 16:45 17:18 23:14 MCV 97.1 96.1 MCH 33.8 H 33.0 MCHC 34.8 34.3 RDW 19.4 H 19.3 H Plt Count 37 L D 14 L* D MPV 12.0 8.9 L Immature Gran % (Auto) Cancelled Neut % (Auto) Cancelled Lymph % (Auto) Cancelled [place] % (Auto) Cancelled Eos % (Auto) Cancelled Baso % (Auto) Cancelled Lymph # (Auto) Cancelled [place] # (Auto) Cancelled Eos # (Auto) Cancelled Baso # (Auto) Cancelled Abs Immat Gran (auto) Cancelled Absolute Neuts (auto) Cancelled Absolute Nucleated RBC 0.000 0.000 Nucleated RBC % (auto) 0.0 0.0 Neutrophils % (Manual) 14 L Band Neutrophils % 9 H Lymphocytes % (Manual) 29 Atypical Lymphs % (Man) 10 H Monocytes % (Manual) 33 H Eosinophils % (Manual) 5 H Blast Cells % (Manual) Abs Neuts (Manual) 0.4 L Lymphocytes # (Manual) 0.5 L Atyp Lymphs # (Manual) 0.2 Monocytes # (Manual) 0.6 Eosinophils # (Manual) 0.1 Toxic Granulation PRESENT Dohle Bodies PRESENT WBC Morphology Comment DYSMORPHIC Platelet Estimate DECREASED Plt Morphology Comment NORMAL RBC Morphology NOTED Hypochromasia 1+ (5-14) Tear Drop Cells 2+ (3-5) Ovalocytes 1+ (5-14) Anion Gap 11 L Estim Creat Clear Calc 52.6 Estimated GFR 40 Random Glucose 92 Lactic Acid Lactic Acid F/U @ 2Hr 1.5 Uric Acid 6.0 Calcium 12.5 H* D 11.9 H Phosphorus 3.5 Total Bilirubin 1.1 H AST 24 ALT 6 Alkaline Phosphatase 95 Total Protein 4.9 L Albumin 3.2 L Urine Color Urine Appearance Urine pH Ur Specific [place] Urine Protein Urine Glucose (UA) Urine Ketones Urine Blood Urine Nitrite Ur Leukocyte Esterase Influenza Type A (PCR) Influenza Type B (PCR) RSV RNA Qual (PCR) SARS-CoV-2 RNA (RT-PCR) Blood Type Antibody Screen Crossmatch 01/29/25 01/30/25 01/30/25 23:34 01:10 07:12 MCV 91.8 MCH 31.4 MCHC 34.2 RDW 18.6 H Plt Count 11 L* MPV 10.6 Immature Gran % (Auto) Cancelled Neut % (Auto) Cancelled Lymph % (Auto) Cancelled [place] % (Auto) Cancelled Eos % (Auto) Cancelled Baso % (Auto) Cancelled Lymph # (Auto) Cancelled [place] # (Auto) Cancelled Eos # (Auto) Cancelled Baso # (Auto) Cancelled Abs Immat Gran (auto) Cancelled Absolute Neuts (auto) Cancelled Absolute Nucleated RBC 0.000 Nucleated RBC % (auto) 0.0 Neutrophils % (Manual) 14 L Band Neutrophils % 7 H Lymphocytes % (Manual) 33 Atypical Lymphs % (Man) 17 H Monocytes % (Manual) 16 H Eosinophils % (Manual) 12 H Blast Cells % (Manual) 1 Abs Neuts (Manual) 0.5 L Lymphocytes # (Manual) 0.7 L Atyp Lymphs # (Manual) 0.4 Monocytes # (Manual) 0.4 Eosinophils # (Manual) 0.3 Toxic Granulation PRESENT Dohle Bodies PRESENT WBC Morphology Comment Platelet Estimate DECREASED Plt Morphology Comment NORMAL RBC Morphology NOTED Hypochromasia 1+ (5-14) Tear Drop Cells Ovalocytes 1+ (5-14) Anion Gap 10 L Estim Creat Clear Calc 59.3 Estimated GFR 46 Random Glucose 84 Lactic Acid Lactic Acid F/U @ 2Hr Uric Acid Calcium 12.9 H* D Phosphorus Total Bilirubin AST ALT Alkaline Phosphatase Total Protein Albumin Urine Color Urine Appearance Urine pH Ur Specific [place] Urine Protein Urine Glucose (UA) Urine Ketones Urine Blood Urine Nitrite Ur Leukocyte Esterase Influenza Type A (PCR) NEGATIVE Influenza Type B (PCR) NEGATIVE RSV RNA Qual (PCR) NEGATIVE SARS-CoV-2 RNA (RT-PCR) NEGATIVE Blood Type Antibody Screen Crossmatch See Detail Assessment and Plan (1) Pneumonia: Status: Acute (2) Hypercalcemia: Status: Acute (3) Severe sepsis: Status: Acute (4) Mouth sores: Status: Acute (5) Neutropenic fever: Status: Acute (6) Acute kidney injury: Status: Acute (7) Thrombocytopenia: Status: Acute (8) Symptomatic anemia: Status: Acute Plan Pt is a 44-year-old male with a 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 Kirk at [facility] [place], HTN, and HLD who is a direct admission to the hospital from Oncology suite after pt was noted to be febrile at 102 degrees and routine labs showed severe thrombocytopenia with undetectable platelets as well as hypercalcemia. Pt is admitted to the hospital for treatment and further evaluation of thrombocytopenia, hypercalcemia, and neutropenic fever in the the setting of pneumonia with sepsis and pt with worsening T cell lymphoma. Neutropenic fever in the setting of pneumonia with severe sepsis Pending cultures CXR showed left lower lobe consolidation concerning for pneumonia Will treat with vancomycin and cefepime, started 01/29/2025 check MRSA nasal swab, Legionella Ag, and strep pneumo Neutropenic precautions ID consult, continue same, consider steroids ; rash likely duo to Levaquin Heme/Onc consult, IV fluids, pamidronate and renal consultation. Follow blood cultures Hypotension Improved after IV boluses keep on IVF maintenance as needed IV albumin Hold antihypertensives Mouth sores Nystatin and Acyclovir for now Thrombocytopenia Patient's platelets undetectable earlier this morning Was transfused 2 units of platelets in Oncology suite, repeat platelets at 37 Trend platelets Acute on chronic anemia Patient's H&H improved to 8.8 after 2 units In the setting of T cell lymphoma and recent chemotherapy transfuse as needed if drops below 7 Trend CBC Hypercalcemia worsened again to 12.9 this morning Pt received IVF, pamidronate disodium 60 mg IV x1 maintenance fluids: NS @150mls/h per nephrology Lasix 20mg IV bid Nephrology consult Trend calcium GINNY mildly improved creatinine 1.6 receiving IVF Nephrology folliwng Follow creatinine, I\O Maculopapular rash with diffuse pruritic rash for the past few days Possibly secondary to recent course of Levaquin vs chemotherapy Benadryl p.r.n. Full Code DVT Prophylaxis: Pneumatic compression Pt will require a hospitalization overnight for treatment of?thrombocytopenia, hypercalcemia, neutropenic fever, among others in the setting of pneumonia with severe sepsis and in a pt with worsening T-cell lymphoma with recent chemotherapy. Pt will require hospital level care for administration of IV antibiotics, IVF, blood product transfusions as necessary, and close monitoring labs. Quality Stroke Does the patient have a stroke diagnosis?: No VTE Prior VTE?: No VTE Risk Level:: Medical - moderate - high VTE Device Contraindication: N/A - Device Ordered VTE Drug Contraindication: Treatment Not Indicated
[2025-01-30 14:46] LABS: MRSA Nasal PCR NEGATIVE (Negative); SA Nasal PCR NEGATIVE (Negative)
[2025-01-30] MEDS: Acetaminophen 1,000 MG/100 ML PIGGYBACK 400 MG IV (15:12)
--- NOTE | 2025-01-30 15:50 | P.PNNP_ITS ---
Subjective Subjective Date of Service: 01/30/25 Interval history: seen and evaluated this morning feels little better Hb improved to 8.8 after transfusion overnight PLT dropped to 11 One more fever overnight but non since then no other events Physical Exam 2 Vital Signs: Vital Signs: Last Vital Signs Temp 100.1 F 01/30/25 15:07 Pulse 105 H 01/30/25 15:07 Resp 16 01/30/25 15:07 BP 99/62 01/30/25 15:07 Pulse Ox 97 01/30/25 11:22 O2 Del Method Nasal Cannula 01/30/25 11:22 O2 Flow Rate 3 01/30/25 11:22 BMI result Body Mass Index 25.1 General: Middle-aged black male, not in acute distress, Nutritional Appearance: well nourished and overweight Eyes: appearance normal, both eyes and all related structures; Alignment and Position: alignment normal and position normal Neck: No lymphadenopathy, no thyromegaly Resp: bilateral air entry equal,no added sounds present Cardio: Regular rate, regular rhythm; Heart sounds: S1 normal heart sound present and S2 normal heart sound present GI: soft, nontender, no guarding, no hepatosplenomegaly : bladder normal to inspection, bladder normal to palpation, no renal angle tenderness Skin: no rashes or lesions noted and elasticity normal Neuro: oriented to person, oriented to place, oriented to time and moves all extremities Objective Data Labs 01/30/25 07:12 01/30/25 07:12 Labs: Laboratory Results - last 24 hr 01/29/25 01/29/25 01/29/25 09:45 14:49 16:45 WBC 2.4 L RBC 2.07 L Hgb 7.0 L* Hct 20.1 L* MCV 97.1 MCH 33.8 H MCHC 34.8 RDW 19.4 H Plt Count 37 L D MPV 12.0 Immature Gran % (Auto) Neut % (Auto) Lymph % (Auto) [place] % (Auto) Eos % (Auto) Baso % (Auto) Lymph # (Auto) [place] # (Auto) Eos # (Auto) Baso # (Auto) Abs Immat Gran (auto) Absolute Neuts (auto) Absolute Nucleated RBC 0.000 Nucleated RBC % (auto) 0.0 Neutrophils % (Manual) Band Neutrophils % Lymphocytes % (Manual) Atypical Lymphs % (Man) Monocytes % (Manual) Eosinophils % (Manual) Blast Cells % (Manual) Abs Neuts (Manual) Lymphocytes # (Manual) Atyp Lymphs # (Manual) Monocytes # (Manual) Eosinophils # (Manual) Toxic Granulation Dohle Bodies WBC Morphology Comment Platelet Estimate Plt Morphology Comment RBC Morphology Hypochromasia Tear Drop Cells Ovalocytes Sodium Potassium Chloride Carbon Dioxide Anion Gap BUN Creatinine Estim Creat Clear Calc Estimated GFR Random Glucose Lactic Acid 2.2 H* Lactic Acid F/U @ 2Hr Uric Acid 6.0 Calcium 12.5 H* D Phosphorus 3.5 Total Bilirubin AST ALT Alkaline Phosphatase Total Protein Albumin Nasal Screen MRSA (PCR) Nasal S. aureus Screen Nasal MRSA/S.aureus Interp Influenza Type A (PCR) Influenza Type B (PCR) RSV RNA Qual (PCR) SARS-CoV-2 RNA (RT-PCR) Blood Type Unknown Antibody Screen NEGATIVE Crossmatch 01/29/25 01/29/25 01/29/25 17:18 23:14 23:34 WBC 1.8 L RBC 1.79 L Hgb 5.9 L* Hct 17.2 L* MCV 96.1 MCH 33.0 MCHC 34.3 RDW 19.3 H Plt Count 14 L* D MPV 8.9 L Immature Gran % (Auto) Cancelled Neut % (Auto) Cancelled Lymph % (Auto) Cancelled [place] % (Auto) Cancelled Eos % (Auto) Cancelled Baso % (Auto) Cancelled Lymph # (Auto) Cancelled [place] # (Auto) Cancelled Eos # (Auto) Cancelled Baso # (Auto) Cancelled Abs Immat Gran (auto) Cancelled Absolute Neuts (auto) Cancelled Absolute Nucleated RBC 0.000 Nucleated RBC % (auto) 0.0 Neutrophils % (Manual) 14 L Band Neutrophils % 9 H Lymphocytes % (Manual) 29 Atypical Lymphs % (Man) 10 H Monocytes % (Manual) 33 H Eosinophils % (Manual) 5 H Blast Cells % (Manual) Abs Neuts (Manual) 0.4 L Lymphocytes # (Manual) 0.5 L Atyp Lymphs # (Manual) 0.2 Monocytes # (Manual) 0.6 Eosinophils # (Manual) 0.1 Toxic Granulation PRESENT Dohle Bodies PRESENT WBC Morphology Comment DYSMORPHIC Platelet Estimate DECREASED Plt Morphology Comment NORMAL RBC Morphology NOTED Hypochromasia 1+ (5-14) Tear Drop Cells 2+ (3-5) Ovalocytes 1+ (5-14) Sodium 144 Potassium 4.1 Chloride 110 H Carbon Dioxide 27 Anion Gap 11 L BUN 25 H Creatinine 1.85 H Estim Creat Clear Calc 52.6 Estimated GFR 40 Random Glucose 92 Lactic Acid Lactic Acid F/U @ 2Hr 1.5 Uric Acid Calcium 11.9 H Phosphorus Total Bilirubin 1.1 H AST 24 ALT 6 Alkaline Phosphatase 95 Total Protein 4.9 L Albumin 3.2 L Nasal Screen MRSA (PCR) Nasal S. aureus Screen Nasal MRSA/S.aureus Interp Influenza Type A (PCR) Influenza Type B (PCR) RSV RNA Qual (PCR) SARS-CoV-2 RNA (RT-PCR) Blood Type Antibody Screen Crossmatch See Detail 01/30/25 01/30/25 01:10 07:12 WBC 2.2 L RBC 2.80 L D Hgb 8.8 L D Hct 25.7 L D MCV 91.8 MCH 31.4 MCHC 34.2 RDW 18.6 H Plt Count 11 L* MPV 10.6 Immature Gran % (Auto) Cancelled Neut % (Auto) Cancelled Lymph % (Auto) Cancelled [place] % (Auto) Cancelled Eos % (Auto) Cancelled Baso % (Auto) Cancelled Lymph # (Auto) Cancelled [place] # (Auto) Cancelled Eos # (Auto) Cancelled Baso # (Auto) Cancelled Abs Immat Gran (auto) Cancelled Absolute Neuts (auto) Cancelled Absolute Nucleated RBC 0.000 Nucleated RBC % (auto) 0.0 Neutrophils % (Manual) 14 L Band Neutrophils % 7 H Lymphocytes % (Manual) 33 Atypical Lymphs % (Man) 17 H Monocytes % (Manual) 16 H Eosinophils % (Manual) 12 H Blast Cells % (Manual) 1 Abs Neuts (Manual) 0.5 L Lymphocytes # (Manual) 0.7 L Atyp Lymphs # (Manual) 0.4 Monocytes # (Manual) 0.4 Eosinophils # (Manual) 0.3 Toxic Granulation PRESENT Dohle Bodies PRESENT WBC Morphology Comment Platelet Estimate DECREASED Plt Morphology Comment NORMAL RBC Morphology NOTED Hypochromasia 1+ (5-14) Tear Drop Cells Ovalocytes 1+ (5-14) Sodium 142 Potassium 4.3 Chloride 107 Carbon Dioxide 29 Anion Gap 10 L BUN 19 H Creatinine 1.64 H Estim Creat Clear Calc 59.3 Estimated GFR 46 Random Glucose 84 Lactic Acid Lactic Acid F/U @ 2Hr Uric Acid Calcium 12.9 H* D Phosphorus Total Bilirubin AST ALT Alkaline Phosphatase Total Protein Albumin Nasal Screen MRSA (PCR) NEGATIVE Nasal S. aureus Screen NEGATIVE Nasal MRSA/S.aureus Interp SEE NOTE Influenza Type A (PCR) NEGATIVE Influenza Type B (PCR) NEGATIVE RSV RNA Qual (PCR) NEGATIVE SARS-CoV-2 RNA (RT-PCR) NEGATIVE Blood Type Antibody Screen Crossmatch Procedures Date of Service Date of Service: 01/30/25 Assessment & Plan Assessment and plan (1) Acute kidney injury: Status: Acute (2) Hypercalcemia: Status: Acute (3) T-cell lymphoma: Status: Acute (4) Neutropenic fever: Status: Acute Plan Hypercalcemia: Patient has been treated for T-cell lymphoma with multiple therapies, presenting with pancytopenia and hypercalcemia. Hypercalcemia can be drug related versus excessive 1 alpha hydroxylase activity We will get vitamin D2, vitamin D3 and PTH levels along with phos levels Received a dose of bisphosphonate yesterday, currently on IV fluid and Lasix. B isphosphonates take about 2-3 days before its calcium lowering effects are reflected. Presented with calcium of 14.2, decreased to 11.9 last night but increased to 12.9 this morning Continue normal saline infusion with Lasix for now, we will add calcitonin nasal spray. Acute kidney injury: Possibly secondary to volume depletion Creatinine improving down to 1.64 this morning Ultrasound kidneys did not show any obstruction Normal uric acid levels Continue IV fluids, net positive 1.7 L yesterday Patient has low-grade temp, blood pressure is 98/60mmHG, in the setting of neutropenia closely watch for any infection. Time Spent With Patient Time: Total time managing care of this patient today _40___ minutes. Progress Note: Quality Stroke Does the patient have a stroke diagnosis?: No
--- NOTE | 2025-01-30 16:09 | MHC.CM.PN ---
PT ON NEUTROPENIC PRECAUTIONS, CM SPOKE TO PTS , IVAN [phone] PT LIVES WITH HIS AND IS INDEPENDENT WITH ALL CARE HE HAS NO SERVICES AND NO DME HE HAS NEVER COMPLETED A HCP PCP: SHEKHAR GILBERT DCP: HOME NO SERVICES VIA PRIVATE TRANSPORT
[2025-01-30 17:01] LABS: Hematocrit 24.9 % (42.0-52.0); Hemoglobin 8.5 g/dl (14.0-18.0); Mean Corpuscular HGB Conc 34.1 g/dl (31.0-36.0); Mean Corpuscular Hemoglobin 31.8 pg (27.0-33.0); Mean Corpuscular Volume 93.3 fL (80.0-98.0); Mean Platelet Volume 10.8 fL (9.4-12.4); Red Blood Count 2.67 X10*6/uL (4.60-5.80); Red Cell Distribution Width 19.4 % (11.0-16.0)
[2025-01-30 17:04] LABS: WBC ABN SCTR FOR CBC 1
[2025-01-30] MEDS: vancomycin HCL 1,250 MG in 0.9 % Sodium Chloride 250 ML 166.67 MG IV (17:04)
--- NOTE | 2025-01-30 17:06 | PM.EVENT ---
Event Note Date of Service: 01/30/25 Event Note: called by RN for hypoxia to 70s 10min after ending last platelet transfusion last fever 100.1 @ 15:03, now 98.4 pt denies dyspnea or chest pain and is in NAD, SaO2 now 98% on 8L via Bhakta NC and titrating O2 down on exam, bilateral inspiratory crackles are present concern for TRALI vs TACO will obtain transfusion reaction labs, CXR, BNP and give furosemide 20 mg IV now Time Spent With Patient Time: Total time managing care of this patient today ____ minutes.
[2025-01-30 17:24] LABS: Parathyroid Hormone Intact < 4.0 pg/mL (8.7-77.1)
--- NOTE | 2025-01-30 18:03 | PC.NURSE ---
?Transfusion reaction At 16:20 patient O2 alerted on monitor to be 78-82% on room air, this RN went to bedside to assess patient. Patient was asymptomatic at the time, with no respiratory complaints. O2 SAT probe was swapped out and respiratory called to bedside, this RN initially placed patient on nasal cannula, then changed over to Bhakta nasal cannula with respiratory at bedside. Sats improved to 90% at 13L, MD notified of incident and patient continued without any respiratory complications during the event. Platelets were already infused prior to event so ?delayed transfusion reaction. Patients other vitals were otherwise stable w/ no further issues or complications at this time. MD reported to bedside and new orders were entered. Patient resting comfortably with Bhakta NC at 6L with SATs 95% prior to this RN leaving the room. Will continue to reassess PRN.
[2025-01-30 18:04] LABS: B Type Natriuretic Peptide 119 pg/mL (<100)
[2025-01-30 18:18] LABS: Atypical Lymphs Percent Manual 14 % (0-6); Band Neutrophils Percent 12 % (3-5); Basophils Percent Manual 2 % (0-2); Blast Percent 2 %; Eosinophils Percent Manual 12 % (0-4); Lymphocytes Percent Manual 18 % (20-40); Monocytes Percent Manual 22 % (2-11); Neutrophils Percent Manual 18 % (45-73)
[2025-01-30 18:19] LABS: Acanthocytes 1+ (0-2) /OIF; Burr Cells 1+ (0-2) /OIF; Dohle Bodies PRESENT; Macrocytosis 1+ (5-14) /OIF; Platelet Estimate DECREASED (NORMAL); Platelet Morphology Comment NORMAL; RBC Morphology NOTED; Schistocytes 1+ (0-2) /OIF; Toxic Granulation PRESENT; Toxic Vacuolation PRESENT
[2025-01-30 18:20] LABS: Atypical Lymph Absolute Manual 0.4 x10*3/uL; Basophils Abs Manual 0.1 X10*3/uL (0.0-0.2); Blastocytes Absolute 0.1 X10*3/uL; Eosinophils Absolute Manual 0.4 X10*3/uL (0.0-0.4); Lymphocytes Absolute Manual 0.6 X10*3/uL (1.2-4.9); Monocytes Absolute Manual 0.7 X10*3/uL (0.1-1.2); Platelet Count 34 X10*3/uL (160-400); White Blood Count 3.2 X10*3/uL (4.8-10.8)
[2025-01-30 19:16] LABS: B Type Natriuretic Peptide 112 pg/mL (<100)
[2025-01-30 19:17] LABS: B Type Natriuretic Peptide 16 pg/mL (<100)
[2025-01-30] MEDS: LETERMOVIR 480 MG 480 EACH PO (21:36)
[2025-01-30] MEDS: Mirtazapine 15 MG TABLET PO (21:37)
[2025-01-30 23:44] LABS: Appearance Urine Clear; Color Urine Yellow; Glucose Urine UA Negative (Negative); Leukocyte Esterase Urine Negative (Negative); Nitrite Urine Negative (Negative); Urine Blood Negative (Negative); Urine Hemoglobin Negative; Urine Ketones Negative (Negative); Urine Protein Negative (Neg-Trace)
[2025-01-30 23:48] LABS: Bacteria Urine None Seen (None Seen); RBC Urine 0-2 /HPF (0-2); Squamous Epithelial Cell Urine 0-2 /HPF (0-2); WBC Urine 0-5 /HPF (0-5)
[2025-01-31] VITALS (9 sets, daily range): BP systolic 92–122; BP diastolic 59–79; PULSE 85–115; RESP 16–19; TEMP 36.5–37.1; O2SAT 95–97
[2025-01-31] MEDS: Pantoprazole Sodium 40 MG/10 ML VIAL IVPUSH ×2 (06:36→16:53)
[2025-01-31] MEDS: cefEPime HCl/D5W 2 GM/50 ML PIGGYBACK IV ×2 (08:48→19:53)
[2025-01-31] MEDS: levETIRAcetam 250 MG TABLET 750 MG PO ×2 (08:51→19:53)
[2025-01-31] MEDS: Furosemide 20 MG/2 ML VIAL IVPUSH (08:51)
[2025-01-31] MEDS: Atovaquone 750 MG/5 ML ORAL.SUSP 1500 MG PO (08:51)
[2025-01-31] MEDS: Ammonium Lactate 12 % Lotion 226 GM BOTTLE 1 APPL TOPICAL ×2 (08:51→22:18)
[2025-01-31] MEDS: Acyclovir 200 MG CAPSULE 400 MG PO (08:51)
[2025-01-31] MEDS: Magnesium Oxide 400 MG TABLET PO ×2 (08:51→19:54)
[2025-01-31] MEDS: Nystatin Oral Susp 500,000 UNIT/5 ML ORAL.SUSP 500000 UNIT PO ×4 (09:02→22:18)
[2025-01-31] MEDS: LETERMOVIR 480 MG 480 EACH PO (09:06)
[2025-01-31] MEDS: Calcitonin,Salmon,Synth Nasal 3.7 ML BOTTLE 1 SPRAY NOSTRILALT ×2 (09:06→19:54)
[2025-01-31 09:19] LABS: Hemoglobin 9.4 g/dl (14.0-18.0); PLT CLUMP 1
[2025-01-31 09:21] LABS: Hematocrit 26.5 % (42.0-52.0); Mean Corpuscular HGB Conc 35.5 g/dl (31.0-36.0); Mean Corpuscular Hemoglobin 32.3 pg (27.0-33.0); Mean Corpuscular Volume 91.1 fL (80.0-98.0); Mean Platelet Volume 12.5 fL (9.4-12.4); Red Blood Count 2.91 X10*6/uL (4.60-5.80)
[2025-01-31 09:25] LABS: WBC ABN SCTR FOR CBC 1; White Blood Count 4.5 X10*3/uL (4.8-10.8)
[2025-01-31 09:53] LABS: Anion Gap 13 (12-20); Blood Urea Nitrogen 17 mg/dL (9-16); Calcium 14.4 mg/dL (8.4-10.2); Carbon Dioxide 30 mmol/L (22-29); Chloride 105 mmol/L (96-108); Creatinine Clr Calc Pharmacy 50.6; Estimated Glomerular Filt Rate 38; Glucose Random 84 mg/dL (60-115); Potassium 3.6 mmol/L (3.3-5.1); Sodium 144 mmol/L (135-145)
[2025-01-31 10:19] LABS: Platelet Count 18 X10*3/uL (160-400)
[2025-01-31 10:40] LABS: Band Neutrophils Percent 4 % (3-5); Blast Percent 3 %; Blastocytes Absolute 0.1 X10*3/uL; Eosinophils Absolute Manual 0.5 X10*3/uL (0.0-0.4); Eosinophils Percent Manual 11 % (0-4); Monocytes Absolute Manual 1.1 X10*3/uL (0.1-1.2); Monocytes Percent Manual 24 % (2-11); Neutrophils Absolute Manual 1.9 X10*3/uL (2.0-8.3); Neutrophils Percent Manual 39 % (45-73)
[2025-01-31 10:41] LABS: Dohle Bodies PRESENT; Large Platelet PRESENT; Macrocytosis 1+ (5-14) /OIF; Ovalocytes 1+ (5-14) /OIF; Platelet Estimate DECREASED (NORMAL); Platelet Morphology Comment NOTED; RBC Morphology NOTED; Toxic Granulation PRESENT
[2025-01-31 10:42] LABS: Atypical Lymph Absolute Manual 0.3 x10*3/uL; Atypical Lymphs Percent Manual 7 % (0-6); Lymphocytes Absolute Manual 0.5 X10*3/uL (1.2-4.9); Lymphocytes Percent Manual 12 % (20-40)
--- NOTE | 2025-01-31 10:51 | P.PNNP_ITS ---
Subjective Subjective Date of Service: 01/31/25 Interval history: seen and evaluated this morning Sitting in the chair, denies any new complaints Saturations normal on 2 L nasal cannula oxygen Calcium increased to 14.4, creatinine at 1.92 Physical Exam 2 Vital Signs: Vital Signs: Last Vital Signs Temp 98.1 F 01/31/25 06:57 Pulse 107 H 01/31/25 06:57 Resp 18 01/31/25 06:57 BP 109/59 L 01/31/25 06:57 Pulse Ox 95 01/31/25 06:57 O2 Del Method Nasal Cannula 01/31/25 06:57 O2 Flow Rate 1.5 01/31/25 06:57 BMI result Body Mass Index 25.1 General: In mild acute distress, ill appearing and tired appearing Nutritional Appearance: well nourished and overweight Eyes: appearance normal, both eyes and all related structures; Alignment and Position: alignment normal and position normal Neck: No lymphadenopathy, no thyromegaly Resp: bilateral air entry equal,no added sounds present Cardio: Regular rate, regular rhythm; Heart sounds: S1 normal heart sound present and S2 normal heart sound present GI: soft, nontender, no guarding, no hepatosplenomegaly : bladder normal to inspection, bladder normal to palpation, no renal angle tenderness Skin: no rashes or lesions noted and elasticity normal Neuro: oriented to person, oriented to place, oriented to time and moves all extremities Objective Data Labs 01/31/25 08:52 01/31/25 08:52 Labs: Laboratory Results - last 24 hr 01/29/25 01/29/25 01/29/25 09:45 16:45 23:34 WBC RBC Hgb Hct MCV MCH MCHC RDW Plt Count MPV Immature Gran % (Auto) Neut % (Auto) Lymph % (Auto) [place] % (Auto) Eos % (Auto) Baso % (Auto) Lymph # (Auto) [place] # (Auto) Eos # (Auto) Baso # (Auto) Abs Immat Gran (auto) Absolute Neuts (auto) Absolute Nucleated RBC Nucleated RBC % (auto) Neutrophils % (Manual) Band Neutrophils % Lymphocytes % (Manual) Atypical Lymphs % (Man) Monocytes % (Manual) Eosinophils % (Manual) Basophils % (Manual) Blast Cells % (Manual) Abs Neuts (Manual) Lymphocytes # (Manual) Atyp Lymphs # (Manual) Monocytes # (Manual) Eosinophils # (Manual) Basophils # (Manual) Blast Cells # Toxic Granulation Toxic Vacuolation Dohle Bodies Platelet Estimate Large Platelets Plt Morphology Comment RBC Morphology Macrocytosis Ovalocytes [place] Cells Acanthocytes (Spur) Schistocytes Sodium Potassium Chloride Carbon Dioxide Anion Gap BUN Creatinine Estim Creat Clear Calc Estimated GFR Random Glucose Calcium B-Natriuretic Peptide 16 25-OH Vitamin D Total PTH Intact Urine Color Urine Appearance Urine pH Ur Specific [place] Urine Protein Urine Glucose (UA) Urine Ketones Urine Hemoglobin Urine Blood Urine Nitrite Ur Leukocyte Esterase Urine RBC Urine WBC Ur Squamous Epith Cells Urine Bacteria Hyaline Casts Nasal Screen MRSA (PCR) Nasal S. aureus Screen Nasal MRSA/S.aureus Interp Blood Type Unknown Antibody Screen NEGATIVE Crossmatch See Detail Clerical Work Check Hemolysis Bld Bag Check Icterus Blood Bag Check Pre-Trans Blood Type Post-Trans Blood Type Post-Trans NEETU Poly Post-Tx Rxn NEETU Result 01/30/25 01/30/25 01/30/25 01:10 16:42 17:35 WBC 3.2 L RBC 2.67 L Hgb 8.5 L Hct 24.9 L MCV 93.3 MCH 31.8 MCHC 34.1 RDW 19.4 H Plt Count 34 L D MPV 10.8 Immature Gran % (Auto) Cancelled Neut % (Auto) Cancelled Lymph % (Auto) Cancelled [place] % (Auto) Cancelled Eos % (Auto) Cancelled Baso % (Auto) Cancelled Lymph # (Auto) Cancelled [place] # (Auto) Cancelled Eos # (Auto) Cancelled Baso # (Auto) Cancelled Abs Immat Gran (auto) Cancelled Absolute Neuts (auto) Cancelled Absolute Nucleated RBC 0.000 Nucleated RBC % (auto) 0.0 Neutrophils % (Manual) 18 L Band Neutrophils % 12 H Lymphocytes % (Manual) 18 L Atypical Lymphs % (Man) 14 H Monocytes % (Manual) 22 H Eosinophils % (Manual) 12 H Basophils % (Manual) 2 Blast Cells % (Manual) 2 Abs Neuts (Manual) 1.0 L Lymphocytes # (Manual) 0.6 L Atyp Lymphs # (Manual) 0.4 Monocytes # (Manual) 0.7 Eosinophils # (Manual) 0.4 Basophils # (Manual) 0.1 Blast Cells # 0.1 Toxic Granulation PRESENT Toxic Vacuolation PRESENT Dohle Bodies PRESENT Platelet Estimate DECREASED Large Platelets Plt Morphology Comment NORMAL RBC Morphology NOTED Macrocytosis 1+ (5-14) Ovalocytes [place] Cells 1+ (0-2) Acanthocytes (Spur) 1+ (0-2) Schistocytes 1+ (0-2) Sodium Potassium Chloride Carbon Dioxide Anion Gap BUN Creatinine Estim Creat Clear Calc Estimated GFR Random Glucose Calcium B-Natriuretic Peptide 112 H 119 H 25-OH Vitamin D Total 38.0 PTH Intact < 4.0 L Urine Color Urine Appearance Urine pH Ur Specific [place] Urine Protein Urine Glucose (UA) Urine Ketones Urine Hemoglobin Urine Blood Urine Nitrite Ur Leukocyte Esterase Urine RBC Urine WBC Ur Squamous Epith Cells Urine Bacteria Hyaline Casts Nasal Screen MRSA (PCR) NEGATIVE Nasal S. aureus Screen NEGATIVE Nasal MRSA/S.aureus Interp SEE NOTE Blood Type Antibody Screen Crossmatch Clerical Work Check No Error Found Hemolysis Bld Bag Check No in Pre and Post Icterus Blood Bag Check No in Pre and Post Pre-Trans Blood Type UNKNOWN Post-Trans Blood Type Unknown Post-Trans NEETU Poly NEGATIVE Post-Tx Rxn NEETU Result TNP 01/30/25 01/31/25 23:25 08:52 WBC 4.5 L RBC 2.91 L Hgb 9.4 L Hct 26.5 L MCV 91.1 MCH 32.3 MCHC 35.5 RDW 19.0 H Plt Count 18 L* MPV 12.5 H Immature Gran % (Auto) Cancelled Neut % (Auto) Cancelled Lymph % (Auto) Cancelled [place] % (Auto) Cancelled Eos % (Auto) Cancelled Baso % (Auto) Cancelled Lymph # (Auto) Cancelled [place] # (Auto) Cancelled Eos # (Auto) Cancelled Baso # (Auto) Cancelled Abs Immat Gran (auto) Cancelled Absolute Neuts (auto) Cancelled Absolute Nucleated RBC 0.000 Nucleated RBC % (auto) 0.0 Neutrophils % (Manual) 39 L Band Neutrophils % 4 Lymphocytes % (Manual) 12 L Atypical Lymphs % (Man) 7 H Monocytes % (Manual) 24 H Eosinophils % (Manual) 11 H Basophils % (Manual) Blast Cells % (Manual) 3 Abs Neuts (Manual) 1.9 L Lymphocytes # (Manual) 0.5 L Atyp Lymphs # (Manual) 0.3 Monocytes # (Manual) 1.1 Eosinophils # (Manual) 0.5 H Basophils # (Manual) Blast Cells # 0.1 Toxic Granulation PRESENT Toxic Vacuolation Dohle Bodies PRESENT Platelet Estimate DECREASED Large Platelets PRESENT Plt Morphology Comment NOTED RBC Morphology NOTED Macrocytosis 1+ (5-14) Ovalocytes 1+ (5-14) [place] Cells Acanthocytes (Spur) Schistocytes Sodium 144 Potassium 3.6 Chloride 105 Carbon Dioxide 30 H Anion Gap 13 BUN 17 H Creatinine 1.92 H Estim Creat Clear Calc 50.6 Estimated GFR 38 Random Glucose 84 Calcium 14.4 H* D B-Natriuretic Peptide 25-OH Vitamin D Total PTH Intact Urine Color Yellow Urine Appearance Clear Urine pH 7.0 Ur Specific [place] 1.010 Urine Protein Negative Urine Glucose (UA) Negative Urine Ketones Negative Urine Hemoglobin Negative Urine Blood Negative Urine Nitrite Negative Ur Leukocyte Esterase Negative Urine RBC 0-2 Urine WBC 0-5 Ur Squamous Epith Cells 0-2 Urine Bacteria None Seen Hyaline Casts 3-5 Nasal Screen MRSA (PCR) Nasal S. aureus Screen Nasal MRSA/S.aureus Interp Blood Type Antibody Screen Crossmatch Clerical Work Check Hemolysis Bld Bag Check Icterus Blood Bag Check Pre-Trans Blood Type Post-Trans Blood Type Post-Trans NEETU Poly Post-Tx Rxn NEETU Result Procedures Date of Service Date of Service: 01/31/25 Assessment & Plan Assessment and plan (1) Thrombocytopenia: Status: Acute (2) Acute kidney injury: Status: Acute (3) Hypercalcemia: Status: Acute Plan Hypercalcemia: Patient has been treated for T-cell lymphoma with multiple therapies, presenting with pancytopenia and hypercalcemia. Hypercalcemia can be drug related versus excessive 1 alpha hydroxylase activity, no evidence of bony mets as of now. Vitamin-D to levels 38, vitamin D3 level pending to look for alpha hydroxylase activity, PTH appropriately suppressed Received a 60mg dose of bisphosphonate on 01/30/2024, IV fluids held overnight due to shortness of breath. Bisphosphonates take about 2-3 days before its calcium lowering effects are reflected. We will give an additional 30 mg of pamidronate to complete a 90 mg dose (GFR 38-46) since IV calcitonin is not currently available in the hospital. Increase the NS to 200 ml/hour and Lasix to 80 mg b.i.d. I talked to pharmacy to procure IV calcitonin, currently on nasal calcitonin. Presented with calcium of 14.2, decreased to 11.9 but increased to 14.4 this morning possibly as his Normal saline was stopped overnight due to worsening shortness of breath. Acute kidney injury: Possibly secondary to volume depletion Creatinine increased to 1.94 this morning after his fluid balance of net negative 1litre yesterday. Will try to keep him slightly net positive today with increase in normal saline at 200cc/hr Ultrasound kidneys did not show any obstruction Normal uric acid levels Time Spent With Patient Time: Total time managing care of this patient today ____ minutes. Progress Note: Quality Stroke Does the patient have a stroke diagnosis?: No
[2025-01-31] MEDS: methylPREDNISolone Sod Succ 40 MG/ML VIAL IVPUSH (11:46)
[2025-01-31] MEDS: Furosemide 100 MG/10 ML VIAL 60 MG IVPUSH (11:46)
--- NOTE | 2025-01-31 11:57 | HO.PM.IMPN ---
Subjective Subjective Date of Service: 01/31/25 Interval History: seen and evaluated this morning feels tired overall Hb improved to 9.4 PLT dropped to 18 Cr worse to 1.9 and Ca of 14.4 One more fever overnight but non since then no other events Review of Systems Review of Systems: Yes all other systems are reviewed and are negative Physical Exam Vital Signs: Vital Signs: Last Vital Signs Temp 97.7 F 01/31/25 11:00 Pulse 113 H 01/31/25 11:00 Resp 18 01/31/25 11:00 BP 101/63 01/31/25 11:00 Pulse Ox 97 01/31/25 11:00 O2 Del Method Nasal Cannula 01/31/25 11:00 O2 Flow Rate 2 01/31/25 11:00 BMI result Body Mass Index 25.1 Const: Other: Constitutional : Awake, interactive, frail looking Neck : Normal inspection, Supple Cardiovascular : RRR, no JVP, lower extremity edema Respiratory : fair bilateral air entry, fine Lt side crackles, no wheezes or rhonchi, on O2 supplement Gastrointestinal: soft, lax, Normal bowel sounds, Non tender Skin : Warm, Dry skin with rash on back Neurological : Alert & oriented x3, No focal deficit Objective Data Active Medications Acetaminophen (Acetaminophen 325 Mg Tablet) 650 mg PO Q6H PRN PRN Reason: Pain, Mild 1-3,fever,headache Last Admin: 01/30/25 09:26 Dose: 650 mg Documented By: MAXIMILIAN Acyclovir (Acyclovir 200 Mg Capsule) 400 mg PO TID [facility] Last Admin: 01/31/25 08:51 Dose: 400 mg Documented By: MAXIMILIAN Atovaquone (Atovaquone 750 Mg/5 Ml Oral.Susp) 1,500 mg PO DAILY@0800 [facility] Last Admin: 01/31/25 08:51 Dose: 1,500 mg Documented By: MAXIMILIAN Calcitonin [place] (Calcitonin,[place],Synth Nasal 3.7 Ml Bottle) 1 spray NOSTRILALT BID [facility] Last Admin: 01/31/25 09:06 Dose: 1 spray Documented By: MAXIMILIAN Diphenhydramine HCl (Diphenhydramine Hcl 50 Mg/Ml Vial) 25 mg IVPUSH Q6H PRN PRN Reason: Itching Furosemide (Furosemide 20 Mg/2 Ml Vial) 80 mg IVPUSH BID@0900,1800 [facility]; Protocol Sodium Chloride (Ns) 1,000 mls @ 200 mls/hr IVCONT .Q5H [facility] Last Admin: 01/30/25 23:32 Dose: Not Given Documented By: ANDREA Non-Admin Reason: per MD hold Cefepime HCl (Maxipime) 2 gm in 50 mls @ 100 mls/hr IV Q12H [facility] Last Infusion: 01/31/25 09:34 Dose: Infused Documented By: MAXIMILIAN Vancomycin HCl 1,250 mg/ (Sodium Chloride) 250 mls @ 166.667 mls/hr IV Q24H [facility] Last Infusion: 01/30/25 18:41 Dose: Infused Documented By: MAXIMILIAN Acetaminophen (Ofirmev) 1,000 mg in 100 mls @ 400 mls/hr IV ONCE PRN PRN Reason: Rigors Last Infusion: 01/30/25 15:30 Dose: Infused Documented By: MAXIMILIAN Pamidronate Disodium 30 mg/ (Sodium Chloride) 260 mls @ 130 mls/hr IV ONCE ONE Stop: 01/31/25 13:59 Lactic Acid (Ammonium Lactate 12 % Lotion 226 Gm Bottle) 1 appl TOPICAL BID [facility]; Protocol Last Admin: 01/31/25 08:51 Dose: 1 appl Documented By: MAXIMILIAN Levetiracetam (Levetiracetam 250 Mg Tablet) 750 mg PO BID [facility] Last Admin: 01/31/25 08:51 Dose: 750 mg Documented By: MAXIMILIAN Magnesium Hydroxide (Milk Of Magnesia 30 Ml Oral.Susp) 30 ml PO DAILY PRN PRN Reason: Constipation Magnesium Oxide (Magnesium Oxide 400 Mg Tablet) 400 mg PO BID [facility] Last Admin: 01/31/25 08:51 Dose: 400 mg Documented By: MAXIMILIAN Melatonin (Melatonin 3 Mg Tablet) 6 mg PO BEDTIME PRN PRN Reason: Insomnia Methylprednisolone Sodium Succinate (Methylprednisolone Sod Succ 40 Mg/Ml Vial) 40 mg IVPUSH Q24H [facility] Mirtazapine (Mirtazapine 15 Mg Tablet) 15 mg PO BEDTIME [facility] Last Admin: 01/30/25 21:37 Dose: 15 mg Documented By: ANDREA Pt Own (Letermovir (480 Mg Tablet)) 480 mg PO DAILY [facility] Last Admin: 01/31/25 09:06 Dose: 480 mg Documented By: MAXIMILIAN Nystatin (Nystatin Oral Susp 500,000 Unit/5 Ml Oral.Susp) 500,000 unit PO QID [facility]; Protocol Last Admin: 01/31/25 09:02 Dose: 500,000 unit Documented By: MAXIMILIAN Pantoprazole Sodium (Pantoprazole Sodium 40 Mg/10 Ml Vial) 40 mg IVPUSH BID@0630,1630 [facility] Last Admin: 01/31/25 06:36 Dose: 40 mg Documented By: ANDREA Pharmacy Consult (Consult Rx Vancomycin Dosing) 1 each MISCELLANE DAILY PRN PRN Reason: Consult order Polyethylene Glycol (Polyethylene Glycol 3350 17 Gm Powd.Pack) 17 gm PO BID PRN PRN Reason: Constipation Propranolol HCl (Propranolol Hcl 10 Mg Tablet) 10 mg PO TID [facility]; Protocol Last Admin: 01/30/25 09:14 Dose: 10 mg Documented By: MAXIMILIAN Sodium Chloride (0.9 % Sodium Chloride Flush 3 Ml Syringe) 3 ml IVFLUSH QSHIFT [facility] Last Admin: 01/31/25 09:05 Dose: Not Given Documented By: MAXIMILIAN Non-Admin Reason: IV Running Labs 01/31/25 08:52 01/31/25 08:52 Labs: Laboratory Results - last 24 hr 01/29/25 01/29/25 01/30/25 09:45 16:45 01:10 MCV MCH MCHC RDW Plt Count MPV Immature Gran % (Auto) Neut % (Auto) Lymph % (Auto) [place] % (Auto) Eos % (Auto) Baso % (Auto) Lymph # (Auto) [place] # (Auto) Eos # (Auto) Baso # (Auto) Abs Immat Gran (auto) Absolute Neuts (auto) Absolute Nucleated RBC Nucleated RBC % (auto) Neutrophils % (Manual) Band Neutrophils % Lymphocytes % (Manual) Atypical Lymphs % (Man) Monocytes % (Manual) Eosinophils % (Manual) Basophils % (Manual) Blast Cells % (Manual) Abs Neuts (Manual) Lymphocytes # (Manual) Atyp Lymphs # (Manual) Monocytes # (Manual) Eosinophils # (Manual) Basophils # (Manual) Blast Cells # Toxic Granulation Toxic Vacuolation Dohle Bodies Platelet Estimate Large Platelets Plt Morphology Comment RBC Morphology Macrocytosis Ovalocytes [place] Cells Acanthocytes (Spur) Schistocytes Anion Gap Estim Creat Clear Calc Estimated GFR Random Glucose Calcium B-Natriuretic Peptide 16 25-OH Vitamin D Total PTH Intact Urine Color Urine Appearance Urine pH Ur Specific [place] Urine Protein Urine Glucose (UA) Urine Ketones Urine Hemoglobin Urine Blood Urine Nitrite Ur Leukocyte Esterase Urine RBC Urine WBC Ur Squamous Epith Cells Urine Bacteria Hyaline Casts Nasal Screen MRSA (PCR) NEGATIVE Nasal S. aureus Screen NEGATIVE Nasal MRSA/S.aureus Interp SEE NOTE Blood Type Unknown Antibody Screen NEGATIVE Clerical Work Check Hemolysis Bld Bag Check Icterus Blood Bag Check Pre-Trans Blood Type Post-Trans Blood Type Post-Trans NEETU Poly Post-Tx Rxn NEETU Result 01/30/25 01/30/25 01/30/25 16:42 17:35 23:25 MCV 93.3 MCH 31.8 MCHC 34.1 RDW 19.4 H Plt Count 34 L D MPV 10.8 Immature Gran % (Auto) Cancelled Neut % (Auto) Cancelled Lymph % (Auto) Cancelled [place] % (Auto) Cancelled Eos % (Auto) Cancelled Baso % (Auto) Cancelled Lymph # (Auto) Cancelled [place] # (Auto) Cancelled Eos # (Auto) Cancelled Baso # (Auto) Cancelled Abs Immat Gran (auto) Cancelled Absolute Neuts (auto) Cancelled Absolute Nucleated RBC 0.000 Nucleated RBC % (auto) 0.0 Neutrophils % (Manual) 18 L Band Neutrophils % 12 H Lymphocytes % (Manual) 18 L Atypical Lymphs % (Man) 14 H Monocytes % (Manual) 22 H Eosinophils % (Manual) 12 H Basophils % (Manual) 2 Blast Cells % (Manual) 2 Abs Neuts (Manual) 1.0 L Lymphocytes # (Manual) 0.6 L Atyp Lymphs # (Manual) 0.4 Monocytes # (Manual) 0.7 Eosinophils # (Manual) 0.4 Basophils # (Manual) 0.1 Blast Cells # 0.1 Toxic Granulation PRESENT Toxic Vacuolation PRESENT Dohle Bodies PRESENT Platelet Estimate DECREASED Large Platelets Plt Morphology Comment NORMAL RBC Morphology NOTED Macrocytosis 1+ (5-14) Ovalocytes [place] Cells 1+ (0-2) Acanthocytes (Spur) 1+ (0-2) Schistocytes 1+ (0-2) Anion Gap Estim Creat Clear Calc Estimated GFR Random Glucose Calcium B-Natriuretic Peptide 112 H 119 H 25-OH Vitamin D Total 38.0 PTH Intact < 4.0 L Urine Color Yellow Urine Appearance Clear Urine pH 7.0 Ur Specific [place] 1.010 Urine Protein Negative Urine Glucose (UA) Negative Urine Ketones Negative Urine Hemoglobin Negative Urine Blood Negative Urine Nitrite Negative Ur Leukocyte Esterase Negative Urine RBC 0-2 Urine WBC 0-5 Ur Squamous Epith Cells 0-2 Urine Bacteria None Seen Hyaline Casts 3-5 Nasal Screen MRSA (PCR) Nasal S. aureus Screen Nasal MRSA/S.aureus Interp Blood Type Antibody Screen Clerical Work Check No Error Found Hemolysis Bld Bag Check No in Pre and Post Icterus Blood Bag Check No in Pre and Post Pre-Trans Blood Type UNKNOWN Post-Trans Blood Type Unknown Post-Trans NEETU Poly NEGATIVE Post-Tx Rxn NEETU Result [facility] 01/31/25 08:52 MCV 91.1 MCH 32.3 MCHC 35.5 RDW 19.0 H Plt Count 18 L* MPV 12.5 H Immature Gran % (Auto) Cancelled Neut % (Auto) Cancelled Lymph % (Auto) Cancelled [place] % (Auto) Cancelled Eos % (Auto) Cancelled Baso % (Auto) Cancelled Lymph # (Auto) Cancelled [place] # (Auto) Cancelled Eos # (Auto) Cancelled Baso # (Auto) Cancelled Abs Immat Gran (auto) Cancelled Absolute Neuts (auto) Cancelled Absolute Nucleated RBC 0.000 Nucleated RBC % (auto) 0.0 Neutrophils % (Manual) 39 L Band Neutrophils % 4 Lymphocytes % (Manual) 12 L Atypical Lymphs % (Man) 7 H Monocytes % (Manual) 24 H Eosinophils % (Manual) 11 H Basophils % (Manual) Blast Cells % (Manual) 3 Abs Neuts (Manual) 1.9 L Lymphocytes # (Manual) 0.5 L Atyp Lymphs # (Manual) 0.3 Monocytes # (Manual) 1.1 Eosinophils # (Manual) 0.5 H Basophils # (Manual) Blast Cells # 0.1 Toxic Granulation PRESENT Toxic Vacuolation Dohle Bodies PRESENT Platelet Estimate DECREASED Large Platelets PRESENT Plt Morphology Comment NOTED RBC Morphology NOTED Macrocytosis 1+ (5-14) Ovalocytes 1+ (5-14) [place] Cells Acanthocytes (Spur) Schistocytes Anion Gap 13 Estim Creat Clear Calc 50.6 Estimated GFR 38 Random Glucose 84 Calcium 14.4 H* D B-Natriuretic Peptide 25-OH Vitamin D Total PTH Intact Urine Color Urine Appearance Urine pH Ur Specific [place] Urine Protein Urine Glucose (UA) Urine Ketones Urine Hemoglobin Urine Blood Urine Nitrite Ur Leukocyte Esterase Urine RBC Urine WBC Ur Squamous Epith Cells Urine Bacteria Hyaline Casts Nasal Screen MRSA (PCR) Nasal S. 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 [place] [facility] HTN, and HLD who is a direct admission to the hospital from Oncology suite after pt was noted to be febrile at 102 degrees and routine labs showed severe thrombocytopenia with undetectable platelets as well as hypercalcemia. Pt is admitted to the hospital for treatment and further evaluation of thrombocytopenia, hypercalcemia, and neutropenic fever in the the setting of pneumonia with sepsis and pt with worsening T cell lymphoma. Neutropenic fever in the setting of pneumonia with severe sepsis Pending cultures CXR showed left lower lobe consolidation concerning for pneumonia Continue with vancomycin and cefepime, started 01/29/2025 pending Legionella Ag, and strep pneumo Neutropenic precautions ID consult, continue same, consider steroids ; rash likely duo to Levaquin Heme/Onc consult, IV fluids, pamidronate and renal consultation. Follow blood cultures acute Hypercalcemia 2/2 T-cell lymphoma worsened again to 14.4 this morning Increase IVF to 200cc and increase Lasix to 80mg bid; monitor I\O and adjust as needed Add more dose of pamidronate disodium 30 mg IV x1 (received 60 mg on 01/29) Nephrology following; add steroids and Calcitonin Trend calcium GINNY Cr 1.9 receiving IVF Nephrology folliwng Follow creatinine, I\O Hypotension Improved , keep on IVF maintenance as needed IV albumin Hold antihypertensives Neutropenia with Mouth sores ANC improved to 1.9 Nystatin and hold Acyclovir for now Thrombocytopenia total 4 units of PLT transfused, developed rigors and fever , repeat platelets at 18 Onc rec to hold on more transfusion now Trend platelets Acute on chronic anemia Patient's H&H improved to 9 after 2 units In the setting of T cell lymphoma and recent chemotherapy transfuse as needed if drops below 7 Trend CBC Maculopapular rash with diffuse pruritic rash for the past few days Possibly secondary to recent course of Levaquin vs chemotherapy Benadryl p.r.n. Full Code DVT Prophylaxis: Pneumatic compression Pt will require a hospitalization overnight for treatment of?thrombocytopenia, hypercalcemia, neutropenic fever, among others in the setting of pneumonia with severe sepsis and in a pt with worsening T-cell lymphoma with recent chemotherapy. Pt will require hospital level care for administration of IV antibiotics, IVF, blood product transfusions as necessary, and close monitoring labs. Quality Stroke Does the patient have a stroke diagnosis?: No VTE Prior VTE?: No VTE Risk Level:: Medical - moderate - high VTE Device Contraindication: N/A - Device Ordered VTE Drug Contraindication: Treatment Not Indicated
[2025-01-31] MEDS: 0.9 % Sodium Chloride 1,000 ML 200 ML IVCONT ×2 (14:56→21:45)
[2025-01-31 15:33] LABS: Anion Gap 15 (12-20); Blood Urea Nitrogen 19 mg/dL (9-16); Carbon Dioxide 29 mmol/L (22-29); Chloride 99 mmol/L (96-108); Creatinine Clr Calc Pharmacy 48.4; Estimated Glomerular Filt Rate 36; Glucose Random 174 mg/dL (60-115); Potassium 3.7 mmol/L (3.3-5.1); Sodium 139 mmol/L (135-145)
[2025-01-31] MEDS: Furosemide 20 MG/2 ML VIAL 80 MG IVPUSH (16:54)
[2025-01-31] MEDS: vancomycin HCL 1,250 MG in 0.9 % Sodium Chloride 250 ML 166.67 MG IV (16:55)
[2025-01-31] MEDS: 0.9 % Sodium Chloride 500 ML IV (19:53)
[2025-01-31] MEDS: Mirtazapine 15 MG TABLET PO (19:54)
[2025-01-31] MEDS: Phytonadione (Vit K1) 5 MG in 0.9 % Sodium Chloride 50 ML 50.5 MG IV (20:00)
[2025-01-31 20:18] LABS: Hemoglobin 10.1 g/dl (14.0-18.0); Mean Corpuscular HGB Conc 34.8 g/dl (31.0-36.0); Mean Corpuscular Volume 91.8 fL (80.0-98.0); Mean Platelet Volume 11.9 fL (9.4-12.4); Red Blood Count 3.16 X10*6/uL (4.60-5.80); Red Cell Distribution Width 19.1 % (11.0-16.0)
[2025-01-31 20:22] LABS: Platelet Count 15 X10*3/uL (160-400); WBC ABN SCTR FOR CBC 1; White Blood Count 5.7 X10*3/uL (4.8-10.8)
[2025-01-31 20:55] LABS: Anion Gap 16 (12-20); Blood Urea Nitrogen 21 mg/dL (9-16); Calcium 15.2 mg/dL (8.4-10.2); Carbon Dioxide 29 mmol/L (22-29); Chloride 100 mmol/L (96-108); Creatinine Clr Calc Pharmacy 46.1; Estimated Glomerular Filt Rate 34; Glucose Random 208 mg/dL (60-115); Lactate Dehydrogenase 556 U/L (118-273); Sodium 141 mmol/L (135-145)
[2025-01-31 21:15] LABS: Atypical Lymph Absolute Manual 0.3 x10*3/uL; Atypical Lymphs Percent Manual 6 % (0-6); Band Neutrophils Percent 18 % (3-5); Lymphocytes Absolute Manual 0.6 X10*3/uL (1.2-4.9); Lymphocytes Percent Manual 10 % (20-40); Monocytes Percent Manual 18 % (2-11); Neutrophils Absolute Manual 3.8 X10*3/uL (2.0-8.3); Neutrophils Percent Manual 48 % (45-73); RBC Morphology NOTED
[2025-01-31 21:16] LABS: Acanthocytes 1+ (0-2) /OIF; Burr Cells 2+ (3-5) /OIF; Macrocytosis 1+ (5-14) /OIF
[2025-01-31 21:17] LABS: Dohle Bodies PRESENT; Ovalocytes 1+ (5-14) /OIF; Toxic Granulation PRESENT; Toxic Vacuolation PRESENT
[2025-01-31 21:18] LABS: Large Platelet PRESENT; Platelet Estimate DECREASED (NORMAL); Platelet Morphology Comment NOTED
[2025-01-31] MEDS: Acetaminophen 325 MG TABLET 975 MG PO (23:22)
[2025-02-01] VITALS (11 sets, daily range): BP systolic 104–125; BP diastolic 63–82; PULSE 75–116; RESP 16–19; TEMP 36.1–36.6; O2SAT 92–98
[2025-02-01] MEDS: Melatonin 3 MG TABLET 6 MG PO (00:04)
[2025-02-01] MEDS: 0.9 % Sodium Chloride Flush 3 ML SYRINGE IVFLUSH ×4 (00:04→20:28)
--- NOTE | 2025-02-01 01:49 | PM.EVENT ---
Event Note Date of Service: 02/01/25 Event Note: 7:50 PM - contacted by nursing to notify patient just developed significant nosebleed (left nostril). Last platelets 15,000. Vital signs stable except for minimal tachycardia. I evaluated the patient immediately. A rhinorocket (7.5 cm) was successfully apply by myself. Oropharynx exam (?Left tonsil exudate vs trush, no dripping of blood noted). Ordered 2 units of platelets (coming from [facility]). Vitamin K 5 mg IV ordered (mildly elevated INR). Patient has been receiving treatment with Lasix for hypercalcemia. CXR repeated and showed left greater than right bibasilar streaky opacities/atelectasis, no pleural effusion or pneumothorax. Patient is currently requiring 2 L/min supplemental oxygen via nasal cannula. ICU team contacted and updated about patient's condition. Time Spent With Patient Time: Total time managing care of this patient today ____ minutes.
[2025-02-01] MEDS: 0.9 % Sodium Chloride 1,000 ML 200 ML IVCONT ×5 (02:39→22:25)
--- NOTE | 2025-02-01 05:19 | PC.NURSE ---
At start of shift patient with severe nose bleed from L nare. Blood pouring out of nose with each tissue change. Lg clot also noted coming from nose. MD Vale made aware and at bedside. Rhino rocket placed by MD. Labs ordered and drawn. Platelets critically low. Order for 2 units platelets placed. First bag infused with no issues. Second bag currently infusing with no issues. Also given Vit K.
[2025-02-01] MEDS: Pantoprazole Sodium 40 MG/10 ML VIAL IVPUSH ×2 (06:13→16:59)
--- NOTE | 2025-02-01 08:01 | PM.HEMONCPN ---
Medical Summary - Medical Summary Date of Service: 02/01/25 Chief complaint: Weakness, nosebleed Primary Care Provider: Sonali Magana MD Pantry Steward/Stewardess Utilized?: No - Algerian Speaking Interval History Interval history: Jus Johnson is a 44 year old male well known to hematology/oncology service because of history of T-cell lymphoma. He was initially diagnosed in 2014 and received chemotherapy [place] [facility] He was in remission for 9 years and he developed recurrence in 2024. 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 He was treated with high-dose chemotherapy and underwent allogeneic stem cell transplantation in [place] under the care of Dr. Gifty Lenz. Unfortunately he developed recurrent disease and has failed multiple other lines of treatment. He is being monitored at [facility] for cytopenias and received blood and platelet transfusions in the last several weeks. He received Nplate and Neulasta last week. He continues to be severely pancytopenic. Today he presented with fever of 102 degrees F and hypotension. He was given fluids, IV antibiotics and platelets in the clinic and admitted to the floor directly for further care. Is feeling okay now, bleeding from left nostril has dropped. He received 2 units platelet transfusion yesterday. No fever or chills. Review of Systems - Neurologic Denies paresthesias [facility] Medical History: Medical History (Last Reviewed 01/29/25 @ 20:50 by ALFRED Cantrell) Asthma Low back pain Non-Hodgkin lymphoma Port-A-Cath in place Family History: Family History (Last Reviewed 01/29/25 @ 20:50 by ALFRED Cantrell) Mother Meningitis Father Surgical History: Surgical History (Last Reviewed 01/29/25 @ 20:50 by ALFRED Cantrell) History of bone marrow biopsy History of removal of Port-a-Cath Social History: Social History (Last Reviewed 01/29/25 @ 20:50 by ALFRED Cantrell) Living Situation History: Household Members: Family Housing: House Do you presently have visiting nurse or other home services: No Alcohol History Details: 1. How often do you have a drink containing alcohol?: a. Never AUDIT-C Alcohol total score: 0 Currently Displaying Signs/Symptoms of Alcohol Withdrawal: No Tobacco History: Patient Tobacco Use Status: Never used Tobacco Substance Use History: Currently Displaying Signs/Symptoms of Drug Intoxication Withdrawal: No Domestic Abuse History: Have you been hit, kicked, punched, or otherwise hurt by someone within the past year? If so, by whom?: No Do you feel safe in your current relationship?: Yes Is there a partner from a previous relationship who is making you feel unsafe now?: No Are you made to feel afraid or neglected: No Advance Directives: Advance Directives: No Advance Directives Information Provided: No Homicidal Assessment: Do you have a plan to hurt others: No Plan Occupation Assessmet: service: No Current occupational status: employed Current occupational status: unemployed Home Medications and Allergies Current Medications: Current Medications Acetaminophen (Acetaminophen 325 Mg Tablet) 650 mg PO Q6H PRN PRN Reason: Pain, Mild 1-3,fever,headache Last Admin: 01/30/25 09:26 Dose: 650 mg Acetaminophen (Acetaminophen 325 Mg Tablet) 975 mg PO ONCE PRN PRN Reason: before platelets/PRBCs transfusion Last Admin: 01/31/25 23:22 Dose: 975 mg Acyclovir (Acyclovir 200 Mg Capsule) 400 mg PO TID [facility] Last Admin: 01/31/25 08:51 Dose: 400 mg Atovaquone (Atovaquone 750 Mg/5 Ml Oral.Susp) 1,500 mg PO DAILY@0800 [facility] Last Admin: 01/31/25 08:51 Dose: 1,500 mg Calcitonin Marion (Calcitonin,Marion,Synth Nasal 3.7 Ml Bottle) 1 spray NOSTRILALT BID [facility] Last Admin: 01/31/25 19:54 Dose: 1 spray Diphenhydramine HCl (Diphenhydramine Hcl 50 Mg/Ml Vial) 25 mg IVPUSH Q6H PRN PRN Reason: Itching Furosemide (Furosemide 20 Mg/2 Ml Vial) 80 mg IVPUSH BID@0900,1800 [facility]; Protocol Last Admin: 01/31/25 16:54 Dose: 80 mg Sodium Chloride (Ns) 1,000 mls @ 200 mls/hr IVCONT .Q5H [facility] Last Admin: 02/01/25 06:13 Dose: 200 mls/hr Cefepime HCl (Maxipime) 2 gm in 50 mls @ 100 mls/hr IV Q12H [facility] Last Infusion: 01/31/25 22:17 Dose: Infused Vancomycin HCl 1,250 mg/ (Sodium Chloride) 250 mls @ 166.667 mls/hr IV Q24H [facility] Last Infusion: 01/31/25 22:17 Dose: Infused Acetaminophen (Ofirmev) 1,000 mg in 100 mls @ 400 mls/hr IV ONCE PRN PRN Reason: Rigors Last Infusion: 01/30/25 15:30 Dose: Infused Lactic Acid (Ammonium Lactate 12 % Lotion 226 Gm Bottle) 1 appl TOPICAL BID [facility]; Protocol Last Admin: 01/31/25 22:18 Dose: 1 appl Levetiracetam (Levetiracetam 250 Mg Tablet) 750 mg PO BID [facility] Last Admin: 01/31/25 19:53 Dose: 750 mg Magnesium Hydroxide (Milk Of Magnesia 30 Ml Oral.Susp) 30 ml PO DAILY PRN PRN Reason: Constipation Magnesium Oxide (Magnesium Oxide 400 Mg Tablet) 400 mg PO BID [facility] Last Admin: 01/31/25 19:54 Dose: 400 mg Melatonin (Melatonin 3 Mg Tablet) 6 mg PO BEDTIME PRN PRN Reason: Insomnia Last Admin: 02/01/25 00:04 Dose: 6 mg Methylprednisolone Sodium Succinate (Methylprednisolone Sod Succ 40 Mg/Ml Vial) 40 mg IVPUSH Q24H [facility] Last Admin: 01/31/25 11:46 Dose: 40 mg Mirtazapine (Mirtazapine 15 Mg Tablet) 15 mg PO BEDTIME [facility] Last Admin: 01/31/25 19:54 Dose: 15 mg Pt Own (Letermovir (480 Mg Tablet)) 480 mg PO DAILY [facility] Last Admin: 01/31/25 09:06 Dose: 480 mg Nystatin (Nystatin Oral Susp 500,000 Unit/5 Ml Oral.Susp) 500,000 unit PO QID [facility]; Protocol Last Admin: 01/31/25 22:18 Dose: 500,000 unit Pantoprazole Sodium (Pantoprazole Sodium 40 Mg/10 Ml Vial) 40 mg IVPUSH BID@0630,1630 [facility] Last Admin: 02/01/25 06:13 Dose: 40 mg Pharmacy Consult (Consult Rx Vancomycin Dosing) 1 each MISCELLANE DAILY PRN PRN Reason: Consult order Polyethylene Glycol (Polyethylene Glycol 3350 17 Gm Powd.Pack) 17 gm PO BID PRN PRN Reason: Constipation Propranolol HCl (Propranolol Hcl 10 Mg Tablet) 10 mg PO TID [facility]; Protocol Last Admin: 01/30/25 09:14 Dose: 10 mg Sodium Chloride (0.9 % Sodium Chloride Flush 3 Ml Syringe) 3 ml IVFLUSH QSHIFT [facility] Last Admin: 02/01/25 00:04 Dose: 3 ml Home Medications ?Medication ?Instructions ?Recorded ?Confirmed ?Type atovaquone 750 mg/5 mL oral 1,500 mg PO DAILY 05/15/24 01/29/25 History suspension oxycodone 5 mg capsule 5 mg PO Q6H PRN Pain 06/01/24 01/29/25 History polyethylene glycol 3350 17 gram 17 g PO BID PRN Constipation 06/01/24 01/29/25 History oral powder packet (Miralax) sennosides 8.6 mg capsule (senna) 8.6 mg PO BID PRN Constipation 06/01/24 01/29/25 History levofloxacin 500 mg tablet 500 mg PO DAILY 07/16/24 01/29/25 History letermovir 480 mg tablet 480 mg PO DAILY 12/08/24 01/29/25 History propranolol 10 mg tablet 10 mg PO DAILY 12/08/24 01/29/25 History esomeprazole magnesium 20 mg 20 mg PO DAILY@62901/29/25 01/29/25 History capsule,delayed release levetiracetam 750 mg tablet 750 mg PO BID 01/29/25 01/29/25 History loperamide 2 mg capsule 2 mg PO QID PRN Loose Stool 01/29/25 01/29/25 History magnesium oxide 400 mg PO BID 01/29/25 01/29/25 History mirtazapine 15 mg tablet 15 mg PO BEDTIME 01/29/25 01/29/25 History potassium phosphate, monobasic 500 500 mg PO BID 01/29/25 01/29/25 History mg soluble tablet saliva substitute combo no.9 15 ml mucous membrane Q4H PRN Dry 01/29/25 01/29/25 History Mouth sodium chloride 0.9 % (flush) 10 ml IV DAILY 01/29/25 01/29/25 History (Normal Saline Flush 0.9 % injection syringe) Allergies Allergy/AdvReac Type Severity Reaction Status Date / Time No Known Allergies Allergy Verified 12/08/24 14:25 [No Known Allergies*] Exam Vital signs: Vital Signs Temp 97.5 F 02/01/25 07:35 Pulse 86 02/01/25 07:35 Resp 17 02/01/25 07:35 BP 123/82 02/01/25 07:35 Pulse Ox 96 02/01/25 07:35 O2 Del Method Nasal Cannula 02/01/25 07:35 O2 Flow Rate 2 02/01/25 07:35 Intake & Output 01/31/25 02/01/25 02/01/25 18:59 06:59 18:59 Intake Total 670 / 4926.167 4256.167 / 4926.167 Output Total 2149 / 2149 Balance -1480 / 2776.167 4256.167 / 2776.167 Urine Output (Average ml/kg/hr) 2.26 2.26 Intake: Intake, Oral Amount 360 / 460 100 / 460 Intake, Oral Supplement Amount 0 / 0 Intake (Blood Product) Amount 684 / 684 Plt Aph Pas Pathreduced(E8342) 316 / 316 Unit [id number] Plt Aph Pas Pathreduced(E8342) 368 / 368 Unit [id number] Intake, IV Amount 310 / 3782.167 3472.167 / 3782.167 0.9 % Sodium Chloride 500 ml @ 216.667 / 216.667 500 mls/hr IV .Q1H [facility] Rx#: [id number] Pamidronate Disodium 30 mg In 0 260 / 260 .9 % Sodium Chloride 250 ml @ 130 mls/hr IV ONCE ONE Rx#: [id number] Phytonadione (Vit K1) 5 mg In 0 50.5 / 50.5 .9 % Sodium Chloride 50 ml @ 50 .5 mls/hr IV ONCE STA Rx#: [id number] cefEPime HCl/D5W 2 gm In 50 ml 50 / 100 50 / 100 @ 100 mls/hr IV Q12H [facility] Rx#: [id number] vancomycin HCL 1,250 mg In 0.9 250 / 250 % Sodium Chloride 250 ml @ 166. 667 mls/hr IV Q24H [facility] Rx#: [id number] 0.9 % Sodium Chloride 1,000 ml 2905 / 2905 @ 200 mls/hr IVCONT .Q5H [facility] Rx #:[id number] Output: Output, Urine Amount 2149 / 0 Other: Number of Incontinent Voids 0 Number of Bowel Movements 0 Last Bowel Movement 01/30/25 Weight 79.2 kg BMI result Body Mass Index 25.1 Data - Labs CBC & Chem 7: 01/31/25 19:56 01/31/25 19:56 Labs: Laboratory Last Values WBC 5.7 X10*3/uL (4.8-10.8) 01/31/25 19:56 RBC 3.16 X10*6/uL (4.60-5.80) L 01/31/25 19:56 Hgb 10.1 g/dl (14.0-18.0) L 01/31/25 19:56 Hct 29.0 % (42.0-52.0) L 01/31/25 19:56 MCV 91.8 fL (80.0-98.0) 01/31/25 19:56 MCH 32.0 pg (27.0-33.0) 01/31/25 19:56 MCHC 34.8 g/dl (31.0-36.0) 01/31/25 19:56 RDW 19.1 % (11.0-16.0) H 01/31/25 19:56 Plt Count 15 X10*3/uL (160-400) L* 01/31/25 19:56 MPV 11.9 fL (9.4-12.4) 01/31/25 19:56 Immature Gran % (Auto) Cancelled 01/31/25 19:56 Neut % (Auto) Cancelled 01/31/25 19:56 Lymph % (Auto) Cancelled 01/31/25 19:56 [place] % (Auto) Cancelled 01/31/25 19:56 Eos % (Auto) Cancelled 01/31/25 19:56 Baso % (Auto) Cancelled 01/31/25 19:56 Lymph # (Auto) Cancelled 01/31/25 19:56 [place] # (Auto) Cancelled 01/31/25 19:56 Eos # (Auto) Cancelled 01/31/25 19:56 Baso # (Auto) Cancelled 01/31/25 19:56 Abs Immat Gran (auto) Cancelled 01/31/25 19:56 Absolute Neuts (auto) Cancelled 01/31/25 19:56 Absolute Nucleated RBC 0.000 X10*3/uL (0.0-0.012) 01/31/25 19:56 Nucleated RBC % (auto) 0.0 /100WBC (0.0-0.2) 01/31/25 19:56 Neutrophils % (Manual) 48 % (45-73) 01/31/25 19:56 Band Neutrophils % 18 % (3-5) H 01/31/25 19:56 Lymphocytes % (Manual) 10 % (20-40) L 01/31/25 19:56 Atypical Lymphs % (Man) 6 % (0-6) 01/31/25 19:56 Monocytes % (Manual) 18 % (2-11) H 01/31/25 19:56 Eosinophils % (Manual) 11 % (0-4) H 01/31/25 08:52 Basophils % (Manual) 2 % (0-2) 01/30/25 16:42 Blast Cells % (Manual) 3 % 01/31/25 08:52 Abs Neuts (Manual) 3.8 X10*3/uL (2.0-8.3) 01/31/25 19:56 Lymphocytes # (Manual) 0.6 X10*3/uL (1.2-4.9) L 01/31/25 19:56 Atyp Lymphs # (Manual) 0.3 x10*3/uL 01/31/25 19:56 Monocytes # (Manual) 1.0 X10*3/uL (0.1-1.2) 01/31/25 19:56 Eosinophils # (Manual) 0.5 X10*3/uL (0.0-0.4) H 01/31/25 08:52 Basophils # (Manual) 0.1 X10*3/uL (0.0-0.2) 01/30/25 16:42 Blast Cells # 0.1 X10*3/uL 01/31/25 08:52 Toxic Granulation PRESENT 01/31/25 19:56 Toxic Vacuolation PRESENT 01/31/25 19:56 Dohle Bodies PRESENT 01/31/25 19:56 WBC Morphology Comment DYSMORPHIC 01/29/25 23:14 Platelet Estimate DECREASED (NORMAL) 01/31/25 19:56 Large Platelets PRESENT 01/31/25 19:56 Plt Morphology Comment NOTED 01/31/25 19:56 RBC Morphology NOTED 01/31/25 19:56 Hypochromasia 1+ (5-14) /OIF 01/30/25 07:12 Macrocytosis 1+ (5-14) /[facility] 01/31/25 19:56 Tear Drop Cells 2+ (3-5) /[facility] 01/29/25 23:14 Ovalocytes 1+ (5-14) /OI 01/31/25 19:56 [place] Cells 2+ (3-5) /[facility] 01/31/25 19:56 Acanthocytes (Spur) 1+ (0-2) /OI 01/31/25 19:56 Schistocytes 1+ (0-2) /[facility] 01/30/25 16:42 Sodium 141 mmol/L (135-145) 01/31/25 19:56 Potassium 4.0 mmol/L (3.3-5.1) 01/31/25 19:56 Chloride 100 mmol/L (96-108) 01/31/25 19:56 Carbon Dioxide 29 mmol/L (22-29) 01/31/25 19:56 Anion Gap 16 (12-20) 01/31/25 19:56 BUN 21 mg/dL (9-16) H 01/31/25 19:56 Creatinine 2.11 mg/dL (0.5-1.4) H 01/31/25 19:56 Estim Creat Clear Calc 46.1 01/31/25 19:56 Estimated GFR 34 01/31/25 19:56 Random Glucose 208 mg/dL (60-115) H 01/31/25 19:56 Lactic Acid 2.2 mmol/L (0.5-2.0) H* 01/29/25 14:49 Lactic Acid F/U @ 2Hr 1.5 mmol/L (0.5-2.0) 01/29/25 17:18 Uric Acid 6.0 mg/dL (3.4-7.0) 01/29/25 16:45 Calcium 15.2 mg/dL (8.4-10.2) H* 01/31/25 19:56 Phosphorus 3.5 mg/dL (2.7-4.5) 01/29/25 16:45 Total Bilirubin 1.1 mg/dL (0.0-1.0) H 01/29/25 23:14 AST 24 U/L (5-37) 01/29/25 23:14 ALT 6 U/L (0-40) 01/29/25 23:14 Alkaline Phosphatase 95 U/L (39-117) 01/29/25 23:14 Lactate Dehydrogenase 556 U/L (118-273) H 01/31/25 19:56 Lactate Dehydrogenase Cancelled 01/31/25 19:56 B-Natriuretic Peptide 119 pg/mL (<100) H 01/30/25 17:35 Total Protein 4.9 g/dL (6.5-8.0) L 01/29/25 23:14 Albumin 3.2 g/dL (3.5-5.0) L 01/29/25 23:14 25-OH Vitamin D Total 38.0 ng/mL (>30) 01/30/25 16:42 PTH Intact < 4.0 pg/mL (8.7-77.1) L 01/30/25 16:42 Urine Color Yellow 01/30/25 23:25 Urine Appearance Clear 01/30/25 23:25 Urine pH 7.0 (5.0-9.0) 01/30/25 23:25 Ur Specific [place] 1.010 (1.005-1.025) 01/30/25 23:25 Urine Protein Negative mg/dL (Neg-Trace) 01/30/25 23:25 Urine Glucose (UA) Negative mg/dL (Negative) 01/30/25 23: Urine Ketones Negative mg/dL (Negative) 01/30/25 23:25 Urine Hemoglobin Negative 01/30/25 23:25 Urine Blood Negative (Negative) 01/30/25 23:25 Urine Nitrite Negative (Negative) 01/30/25 23:25 Ur Leukocyte Esterase Negative (Negative) 01/30/25 23:25 Urine RBC 0-2 /HPF (0-2) 01/30/25 23:25 Urine WBC 0-5 /HPF (0-5) 01/30/25 23:25 Ur Squamous Epith Cells 0-2 /HPF (0-2) 01/30/25 23:25 Urine Bacteria None Seen (None Seen) 01/30/25 23:25 Hyaline Casts 3-5 /LPF (0-2) 01/30/25 23:25 Nasal Screen MRSA (PCR) NEGATIVE (Negative) 01/30/25 01:10 Nasal S. aureus Screen NEGATIVE (Negative) 01/30/25 01:10 Nasal MRSA/S.aureus Interp SEE NOTE 01/30/25 01:10 Random Vancomycin 15.0 mcg/mL (15-20) 01/31/25 14:59 Influenza Type A (PCR) NEGATIVE (Negative) 01/30/25 01:10 Influenza Type B (PCR) NEGATIVE (Negative) 01/30/25 01:10 RSV RNA Qual (PCR) NEGATIVE (Negative) 01/30/25 01:10 SARS-CoV-2 RNA (RT-PCR) NEGATIVE (Negative) 01/30/25 01:10 Blood Type Unknown 01/29/25 09:45 Antibody Screen NEGATIVE 01/29/25 09:45 Crossmatch See Detail 01/29/25 23:34 Clerical Work Check No Error Found 01/30/25 17:35 Hemolysis Bld Bag Check No in Pre and Post 01/30/25 17:35 Icterus Blood Bag Check No in Pre and Post 01/30/25 17:35 Pre-Trans Blood Type UNKNOWN 01/30/25 17:35 Post-Trans Blood Type Unknown 01/30/25 17:35 Post-Trans NEETU Poly NEGATIVE 01/30/25 17:35 Post-Tx Rxn NEETU Result TNP 01/30/25 17:35 - Imaging Radiologist's impression: ITS Impressions Chest X-Ray 01/29/25 15:00 IMPRESSION: Left lower lobe consolidative opacity suspicious for pneumonia. Electronically signed by: Delfin Burden MD 01/29/2025 03:19 PM EDT RP Assessment and Plan Patient Active problem list reviewed?: Yes (1) T-cell lymphoma Status: Acute Assessment and plan: 1. This is a 44-year-old male admitted for sepsis, febrile neutropenia. He has history of recurrent T-cell lymphoma, he received allogeneic stem cell transplant in [facility] in September 2024 and developed recurrent shortly after that in October 2024. 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 Received 6 cycles of chemotherapy with CHOEP REGIMEN FROM DECEMBER TO APRIL 2015. Because of high suspicion for DESK MONITOR involvement patient was admitted at [facility] for inpatient chemotherapy. Patient underwent repeat brain MRI at [facility] which revealed leptomeningeal enhancement. 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 He was started on IVAC regimen (ifosfamide/etoposide/high dose AraC) on 04/23/2024. He completed 4th cycle of IVAC on 07/09/2024. Repeat LP on 07/01 showed normalization of protein, flow cytometry and cytology were negative. He underwent repeat PET-CT, brain and spine MRI as well as CSF studies performed end of July showed patient to be in complete remission. He was admitted 08/09/2024 and received last cycle of IVAC as bridging before allotransplantation. He underwent Allo stem cell transplant in September 2024, he had a prolonged hospitalization with septic shock due to Pseudomonas bacteremia and brief intubation with hypoxic respiratory failure due to RSV pneumonia. Unfortunately however, he relapsed in December 2024 within 3 months of Allo stem cell transplant. He was started urgently on BV-CHP regimen 1st week of December 2024. He is under the care of Dr. Gifty Lenz at [facility]. He passed all of the regulatory approval steps and was able to receive Valemetostat as single patient IND at [facility]. He was on valemetostat for a couple of weeks in December 2024. Unfortunately he progressed on this and was admitted to [facility] last week with severe hypercalcemia. He received blood transfusion and Nplate for cytopenias. He was found to have extensive and progressive lymphadenopathy as well as circulating cells. He was started on high-dose cytarabine monotherapy at a dose of 2 g per m2 Q 24 hours x2 doses, last dose was on 01/21/2025. He has developed severe pancytopenia in spite of Neulasta and blood/platelet transfusion support. 2. Febrile neutropenia/severe thrombocytopenia. Patient was given a dose of cefepime and vancomycin in the office. Blood cultures negative. IV fluids and platelets were administered. Direct admission to hospitalist service today which is much appreciated. 3. Hypercalcemia secondary to malignancy. He has also developed acute kidney injury. IV fluids, pamidronate and renal consultation. 4. Mouth sores. On nystatin and continue acyclovir. 5. Disposition. Prognosis is very poor. Patient has progressive disease which is causing resistant cytopenias as well as hypercalcemia and renal failure. Patient is aware, his Mackenzie has been updated. He is now willing for hospice services. He will be DNR DNI. Thank you. - Time Spent With Patient Time Spent with Patient (in minutes): 15
[2025-02-01] MEDS: Nystatin Oral Susp 500,000 UNIT/5 ML ORAL.SUSP 500000 UNIT PO ×4 (08:07→20:27)
[2025-02-01] MEDS: levETIRAcetam 250 MG TABLET 750 MG PO ×2 (08:07→20:28)
[2025-02-01] MEDS: Magnesium Oxide 400 MG TABLET PO ×2 (08:07→20:28)
[2025-02-01] MEDS: Furosemide 20 MG/2 ML VIAL 80 MG IVPUSH ×2 (08:07→17:00)
[2025-02-01] MEDS: Atovaquone 750 MG/5 ML ORAL.SUSP 1500 MG PO (08:07)
[2025-02-01] MEDS: cefEPime HCl/D5W 2 GM/50 ML PIGGYBACK IV (08:08)
[2025-02-01] MEDS: Calcitonin,Salmon,Synth Nasal 3.7 ML BOTTLE 1 SPRAY NOSTRILALT ×2 (08:08→20:28)
[2025-02-01] MEDS: Ammonium Lactate 12 % Lotion 226 GM BOTTLE 1 APPL TOPICAL ×2 (08:09→20:29)
[2025-02-01] MEDS: LETERMOVIR 480 MG 480 EACH PO (08:09)
[2025-02-01 08:59] LABS: Hematocrit 25.3 % (42.0-52.0); Hemoglobin 8.9 g/dl (14.0-18.0); Mean Corpuscular HGB Conc 35.2 g/dl (31.0-36.0); Mean Corpuscular Hemoglobin 32.6 pg (27.0-33.0); Mean Corpuscular Volume 92.7 fL (80.0-98.0); Mean Platelet Volume 9.4 fL (9.4-12.4); Red Blood Count 2.73 X10*6/uL (4.60-5.80); Red Cell Distribution Width 18.6 % (11.0-16.0)
[2025-02-01 09:00] LABS: Platelet Count 36 X10*3/uL (160-400); WBC ABN SCTR FOR CBC 1
[2025-02-01 09:05] LABS: Prothrombin Time 10.9 SEC (10.9-12.4)
[2025-02-01 09:24] LABS: Atypical Lymphs Percent Manual 12 % (0-6); Band Neutrophils Percent 10 % (3-5); Blast Percent 4 %; Lymphocytes Percent Manual 3 % (20-40); Monocytes Percent Manual 30 % (2-11); Neutrophils Percent Manual 40 % (45-73); Promyelocytes Percent 1 %
[2025-02-01 09:26] LABS: Large Platelet PRESENT; Macrocytosis 1+ (5-14) /OIF; Ovalocytes 1+ (5-14) /OIF; Platelet Estimate DECREASED (NORMAL); Platelet Morphology Comment NOTED; RBC Morphology NOTED
[2025-02-01 09:27] LABS: Anion Gap 14 (12-20); Blastocytes Absolute 0.3 X10*3/uL; Blood Urea Nitrogen 25 mg/dL (9-16); Burr Cells 1+ (0-2) /OIF; Carbon Dioxide 31 mmol/L (22-29); Chloride 104 mmol/L (96-108); Creatinine Clr Calc Pharmacy 48.4; Dohle Bodies PRESENT; Estimated Glomerular Filt Rate 36; Glucose Random 125 mg/dL (60-115); Hypochromasia 1+ (5-14) /OIF; Lymphocytes Absolute Manual 0.2 X10*3/uL (1.2-4.9); Monocytes Absolute Manual 2.5 X10*3/uL (0.1-1.2); Neutrophils Absolute Manual 4.2 X10*3/uL (2.0-8.3); Potassium 4.1 mmol/L (3.3-5.1); Promyelocytes Absolute 0.1 X10*3/uL; Sodium 145 mmol/L (135-145); Toxic Granulation PRESENT; White Blood Count 8.3 X10*3/uL (4.8-10.8)
[2025-02-01 09:30] LABS: Calcium 13.6 mg/dL (8.4-10.2)
--- NOTE | 2025-02-01 10:47 | MHC.CM.PN ---
PT MEDICALLY CLEARED FOR DC TO SONS HOME AT [address] [facility] W/NEW [facility] FOR SN/OT AND NEW REFERRAL FOR [facility], PT'S SON FOR TRANSPORT AT APPROX 1:30PM
[2025-02-01] MEDS: methylPREDNISolone Sod Succ 40 MG/ML VIAL IVPUSH (11:31)
--- NOTE | 2025-02-01 11:58 | P.PNNP_ITS ---
Subjective Subjective Date of Service: 02/01/25 Interval history: Events noted; All recent data reviewed; D/W Hospitalist Physical Exam 2 Vital Signs: Vital Signs: Last Vital Signs Temp 97.5 F 02/01/25 11:31 Pulse 116 H 02/01/25 11:31 Resp 18 02/01/25 11:31 BP 104/63 02/01/25 11:31 Pulse Ox 92 02/01/25 11:31 O2 Del Method Nasal Cannula 02/01/25 11:31 O2 Flow Rate 2 02/01/25 11:31 BMI result Body Mass Index 25.1 Const: General: ill appearing Orientation/consciousness: patient oriented x3 Eyes: EOM: EOMs intact bilaterally Neck: Neck: Yes supple Resp: Auscultation: diminished lung sounds Cardio: Rate: regular rate GI: Palpation (GI): Soft to palpation Neuro: General: patient oriented x3 Objective Data Labs 02/01/25 08:33 02/01/25 08:33 Labs: Laboratory Results - last 24 hr 01/29/25 01/30/25 01/31/25 09:45 17:35 14:59 WBC RBC Hgb Hct MCV MCH MCHC RDW Plt Count MPV Immature Gran % (Auto) Neut % (Auto) Lymph % (Auto) [place] % (Auto) Eos % (Auto) Baso % (Auto) Lymph # (Auto) [place] # (Auto) Eos # (Auto) Baso # (Auto) Abs Immat Gran (auto) Absolute Neuts (auto) Absolute Nucleated RBC Nucleated RBC % (auto) Neutrophils % (Manual) Band Neutrophils % Lymphocytes % (Manual) Atypical Lymphs % (Man) Monocytes % (Manual) Promyelocytes % Blast Cells % (Manual) Abs Neuts (Manual) Lymphocytes # (Manual) Atyp Lymphs # (Manual) Monocytes # (Manual) Promyelocytes # Blast Cells # Toxic Granulation Toxic Vacuolation Dohle Bodies Platelet Estimate Large Platelets Plt Morphology Comment RBC Morphology Hypochromasia Macrocytosis Ovalocytes Mirta Cells Acanthocytes (Spur) PT INR Sodium 139 Potassium 3.7 Chloride 99 Carbon Dioxide 29 Anion Gap 15 BUN 19 H Creatinine 2.01 H Estim Creat Clear Calc 48.4 Estimated GFR 36 Random Glucose 174 H Calcium 15.0 H* Lactate Dehydrogenase Random Vancomycin 15.0 Blood Type Unknown Antibody Screen NEGATIVE Post-Trans Add Testing Not Reportable Pathologist Comment MILLER ELIZABETH 01/31/25 01/31/25 02/01/25 19:56 19:56 08:32 WBC 5.7 RBC 3.16 L Hgb 10.1 L Hct 29.0 L MCV 91.8 MCH 32.0 MCHC 34.8 RDW 19.1 H Plt Count 15 L* MPV 11.9 Immature Gran % (Auto) Cancelled Neut % (Auto) Cancelled Lymph % (Auto) Cancelled [place] % (Auto) Cancelled Eos % (Auto) Cancelled Baso % (Auto) Cancelled Lymph # (Auto) Cancelled [place] # (Auto) Cancelled Eos # (Auto) Cancelled Baso # (Auto) Cancelled Abs Immat Gran (auto) Cancelled Absolute Neuts (auto) Cancelled Absolute Nucleated RBC 0.000 Nucleated RBC % (auto) 0.0 Neutrophils % (Manual) 48 Band Neutrophils % 18 H Lymphocytes % (Manual) 10 L Atypical Lymphs % (Man) 6 Monocytes % (Manual) 18 H Promyelocytes % Blast Cells % (Manual) Abs Neuts (Manual) 3.8 Lymphocytes # (Manual) 0.6 L Atyp Lymphs # (Manual) 0.3 Monocytes # (Manual) 1.0 Promyelocytes # Blast Cells # Toxic Granulation PRESENT Toxic Vacuolation PRESENT Dohle Bodies PRESENT Platelet Estimate DECREASED Large Platelets PRESENT Plt Morphology Comment NOTED RBC Morphology NOTED Hypochromasia Macrocytosis 1+ (5-14) Ovalocytes 1+ (5-14) Mirta Cells 2+ (3-5) Acanthocytes (Spur) 1+ (0-2) PT 10.9 INR 1.0 Sodium 141 Potassium 4.0 Chloride 100 Carbon Dioxide 29 Anion Gap 16 BUN 21 H Creatinine 2.11 H Estim Creat Clear Calc 46.1 Estimated GFR 34 Random Glucose 208 H Calcium 15.2 H* Lactate Dehydrogenase Cancelled 556 H Random Vancomycin Blood Type Antibody Screen Post-Trans Add Testing Pathologist Comment MILLER 02/01/25 08:33 WBC 8.3 RBC 2.73 L Hgb 8.9 L Hct 25.3 L MCV 92.7 MCH 32.6 MCHC 35.2 RDW 18.6 H Plt Count 36 L D MPV 9.4 Immature Gran % (Auto) Cancelled Neut % (Auto) Cancelled Lymph % (Auto) Cancelled [place] % (Auto) Cancelled Eos % (Auto) Cancelled Baso % (Auto) Cancelled Lymph # (Auto) Cancelled [place] # (Auto) Cancelled Eos # (Auto) Cancelled Baso # (Auto) Cancelled Abs Immat Gran (auto) Cancelled Absolute Neuts (auto) Cancelled Absolute Nucleated RBC 0.000 Nucleated RBC % (auto) 0.0 Neutrophils % (Manual) 40 L Band Neutrophils % 10 H Lymphocytes % (Manual) 3 L Atypical Lymphs % (Man) 12 H Monocytes % (Manual) 30 H Promyelocytes % 1 Blast Cells % (Manual) 4 Abs Neuts (Manual) 4.2 Lymphocytes # (Manual) 0.2 L Atyp Lymphs # (Manual) 1.0 Monocytes # (Manual) 2.5 H Promyelocytes # 0.1 Blast Cells # 0.3 Toxic Granulation PRESENT Toxic Vacuolation Dohle Bodies PRESENT Platelet Estimate DECREASED Large Platelets PRESENT Plt Morphology Comment NOTED RBC Morphology NOTED Hypochromasia 1+ (5-14) Macrocytosis 1+ (5-14) Ovalocytes 1+ (5-14) [place] Cells 1+ (0-2) Acanthocytes (Spur) PT INR Sodium 145 Potassium 4.1 Chloride 104 Carbon Dioxide 31 H Anion Gap 14 BUN 25 H Creatinine 2.01 H Estim Creat Clear Calc 48.4 Estimated GFR 36 Random Glucose 125 H Calcium 13.6 H* D Lactate Dehydrogenase Random Vancomycin Blood Type Antibody Screen Post-Trans Add Testing Pathologist Comment BBK Procedures Date of Service Date of Service: 02/01/25 Assessment & Plan Assessment and plan (1) Acute kidney injury: Status: Acute (2) Hypercalcemia: Status: Acute Plan Patient has been treated for T-cell lymphoma with multiple therapies, presenting with pancytopenia and hypercalcemia. Vitamin-D to levels 38, vitamin D3 level pending to look for alpha hydroxylase activity, PTH appropriately suppressed Received 90mg dose of bisphosphonate given; On NaCl 0.9% 200 ml/hour and Lasix to 80 mg b.i.d Acute kidney injury likely due to tubular injury; Serum creatinine stable; USS kidneys did not show any obstruction Normal uric acid levels; C/W current supportive care for now Progress Note: Quality Stroke Does the patient have a stroke diagnosis?: No
--- NOTE | 2025-02-01 12:41 | MHC.CM.PN ---
Addendum entered by Rae Dhillon RN 02/01/25 15:40: PER HOSPITALIST PT AND DECLINING HOSPICE AT THIS TIME, [facility] Original Note: EMR REVIEWED, PER HOSPITALIST PT WOULD BENEFIT FROM HOSPICE CONSULT, CM DID NEED TO MEET W/PT TO GET COPY OF UPDATED INSURANCE AND PT'S [employer] PLAN HAS A HIGH DEDUCTABLE AND OOP COST OF $750 AND $4873.57, HOSPICE SW AWARE AND WILL WORK W/PT PER LIAISON.
--- NOTE | 2025-02-01 13:02 | HO.WOUND ---
Wound consult: Defer to Medical Team 44yr old male admitted to [facility] [place] on 01/29/25 see H&P for detailed history. Complex medical history noted - wound consult paled for rash . Chart review reveals providers have assessed and prescribed topical creams for treatment. Skin not assessed by this manual writer - deferred topical treatment to providers.
--- NOTE | 2025-02-01 15:55 | HO.PM.IMPN ---
Subjective Subjective Date of Service: 02/01/25 Interval History: seen and evaluated this morning feels tired overall PLT improved to 30s Cr worse to 2 and Ca improved to 13.3 One more fever overnight but non since then no other events Review of Systems Review of Systems: Yes all other systems are reviewed and are negative Physical Exam Vital Signs: Vital Signs: Last Vital Signs Temp 97.2 F 02/01/25 15:20 Pulse 104 H 02/01/25 15:20 Resp 17 02/01/25 15:20 BP 119/72 02/01/25 15:20 Pulse Ox 98 02/01/25 15:20 O2 Del Method Nasal Cannula 02/01/25 15:20 O2 Flow Rate 2 02/01/25 15:20 BMI result Body Mass Index 25.1 Const: Other: Constitutional : Awake, interactive, frail looking Neck : Normal inspection, Supple Cardiovascular : RRR, no JVP, trace lower extremity edema Respiratory : fair bilateral air entry, fine Lt side crackles, no wheezes or rhonchi, on O2 supplement Gastrointestinal: soft, lax, Normal bowel sounds, Non tender Skin : Warm, Dry skin with rash on back Neurological : Alert & oriented x3, No focal deficit Objective Data Active Medications Acetaminophen (Acetaminophen 325 Mg Tablet) 650 mg PO Q6H PRN PRN Reason: Pain, Mild 1-3,fever,headache Last Admin: 01/30/25 09:26 Dose: 650 mg Documented By: MAXIMILIAN Acetaminophen (Acetaminophen 325 Mg Tablet) 975 mg PO ONCE PRN PRN Reason: before platelets/PRBCs transfusion Last Admin: 01/31/25 23:22 Dose: 975 mg Documented By: ENRICO Acyclovir (Acyclovir 200 Mg Capsule) 400 mg PO TID [facility] Last Admin: 01/31/25 08:51 Dose: 400 mg Documented By: MAXIMILIAN Atovaquone (Atovaquone 750 Mg/5 Ml Oral.Susp) 1,500 mg PO DAILY@0800 [facility] Last Admin: 02/01/25 08:07 Dose: 1,500 mg Documented By: CLEMENT Calcitonin [place] (Calcitonin,[place],Synth Nasal 3.7 Ml Bottle) 1 spray NOSTRILALT BID [facility] Last Admin: 02/01/25 08:08 Dose: 1 spray Documented By: CLEMENT Diphenhydramine HCl (Diphenhydramine Hcl 50 Mg/Ml Vial) 25 mg IVPUSH Q6H PRN PRN Reason: Itching Doxycycline Monohydrate (Doxycycline Monohydrate 100 Mg Capsule) 100 mg PO Q12H KAREN Furosemide (Furosemide 20 Mg/2 Ml Vial) 80 mg IVPUSH BID@0900,1800 [facility]; Protocol Last Admin: 02/01/25 08:07 Dose: 80 mg Documented By: CLEMENT Sodium Chloride (Ns) 1,000 mls @ 200 mls/hr IVCONT .Q5H KAREN Last Admin: 02/01/25 11:32 Dose: 200 mls/hr Documented By: CLEMENT Acetaminophen (Ofirmev) 1,000 mg in 100 mls @ 400 mls/hr IV ONCE PRN PRN Reason: Rigors Last Infusion: 01/30/25 15:30 Dose: Infused Documented By: MAXIMILIAN Lactic Acid (Ammonium Lactate 12 % Lotion 226 Gm Bottle) 1 appl TOPICAL BID [facility]; Protocol Last Admin: 02/01/25 08:09 Dose: 1 appl Documented By: CLEMENT Levetiracetam (Levetiracetam 250 Mg Tablet) 750 mg PO BID [facility] Last Admin: 02/01/25 08:07 Dose: 750 mg Documented By: CLEMENT Magnesium Hydroxide (Milk Of Magnesia 30 Ml Oral.Susp) 30 ml PO DAILY PRN PRN Reason: Constipation Magnesium Oxide (Magnesium Oxide 400 Mg Tablet) 400 mg PO BID [facility] Last Admin: 02/01/25 08:07 Dose: 400 mg Documented By: CLEMENT Melatonin (Melatonin 3 Mg Tablet) 6 mg PO BEDTIME PRN PRN Reason: Insomnia Last Admin: 02/01/25 00:04 Dose: 6 mg Documented By: ENRICO Methylprednisolone Sodium Succinate (Methylprednisolone Sod Succ 40 Mg/Ml Vial) 40 mg IVPUSH Q24H [facility] Last Admin: 02/01/25 11:31 Dose: 40 mg Documented By: CLEMENT Mirtazapine (Mirtazapine 15 Mg Tablet) 15 mg PO BEDTIME [facility] Last Admin: 01/31/25 19:54 Dose: 15 mg Documented By: ENRICO Pt Own (Letermovir (480 Mg Tablet)) 480 mg PO DAILY [facility] Last Admin: 02/01/25 08:09 Dose: 480 mg Documented By: CLEMENT Nystatin (Nystatin Oral Susp 500,000 Unit/5 Ml Oral.Susp) 500,000 unit PO QID [facility]; Protocol Last Admin: 02/01/25 14:26 Dose: 500,000 unit Documented By: CLEMENT Pantoprazole Sodium (Pantoprazole Sodium 40 Mg/10 Ml Vial) 40 mg IVPUSH BID@0630,1630 [facility] Last Admin: 02/01/25 06:13 Dose: 40 mg Documented By: ENRICO Pharmacy Consult (Consult Rx Vancomycin Dosing) 1 each MISCELLANE DAILY PRN PRN Reason: Consult order Polyethylene Glycol (Polyethylene Glycol 3350 17 Gm Powd.Pack) 17 gm PO BID PRN PRN Reason: Constipation Propranolol HCl (Propranolol Hcl 10 Mg Tablet) 10 mg PO TID [facility]; Protocol Last Admin: 01/30/25 09:14 Dose: 10 mg Documented By: MAXIMILIAN Sodium Chloride (0.9 % Sodium Chloride Flush 3 Ml Syringe) 3 ml IVFLUSH QSHIFT [facility] Last Admin: 02/01/25 08:08 Dose: 3 ml Documented By: CLEMENT Labs 02/01/25 08:33 02/01/25 08:33 Labs: Laboratory Results - last 24 hr 01/29/25 01/29/25 01/30/25 09:45 23:14 17:35 MCV MCH MCHC RDW Plt Count MPV Immature Gran % (Auto) Neut % (Auto) Lymph % (Auto) [place] % (Auto) Eos % (Auto) Baso % (Auto) Lymph # (Auto) [place] # (Auto) Eos # (Auto) Baso # (Auto) Abs Immat Gran (auto) Absolute Neuts (auto) Absolute Nucleated RBC Nucleated RBC % (auto) Neutrophils % (Manual) Band Neutrophils % Lymphocytes % (Manual) Atypical Lymphs % (Man) Monocytes % (Manual) Promyelocytes % Blast Cells % (Manual) Abs Neuts (Manual) Lymphocytes # (Manual) Atyp Lymphs # (Manual) Monocytes # (Manual) Promyelocytes # Blast Cells # Toxic Granulation Toxic Vacuolation Dohle Bodies Platelet Estimate Large Platelets Plt Morphology Comment RBC Morphology Hypochromasia Macrocytosis Ovalocytes [place] Cells Acanthocytes (Spur) Smear Path Review SEE NOTE PT INR Anion Gap Estim Creat Clear Calc Estimated GFR Random Glucose Calcium Lactate Dehydrogenase Blood Type Unknown Antibody Screen NEGATIVE Post-Trans Add Testing Not Reportable Pathologist Comment MILLER ELIZABETH 01/31/25 01/31/25 02/01/25 19:56 19:56 08:32 MCV 91.8 MCH 32.0 MCHC 34.8 RDW 19.1 H Plt Count 15 L* MPV 11.9 Immature Gran % (Auto) Cancelled Neut % (Auto) Cancelled Lymph % (Auto) Cancelled [place] % (Auto) Cancelled Eos % (Auto) Cancelled Baso % (Auto) Cancelled Lymph # (Auto) Cancelled [place] # (Auto) Cancelled Eos # (Auto) Cancelled Baso # (Auto) Cancelled Abs Immat Gran (auto) Cancelled Absolute Neuts (auto) Cancelled Absolute Nucleated RBC 0.000 Nucleated RBC % (auto) 0.0 Neutrophils % (Manual) 48 Band Neutrophils % 18 H Lymphocytes % (Manual) 10 L Atypical Lymphs % (Man) 6 Monocytes % (Manual) 18 H Promyelocytes % Blast Cells % (Manual) Abs Neuts (Manual) 3.8 Lymphocytes # (Manual) 0.6 L Atyp Lymphs # (Manual) 0.3 Monocytes # (Manual) 1.0 Promyelocytes # Blast Cells # Toxic Granulation PRESENT Toxic Vacuolation PRESENT Dohle Bodies PRESENT Platelet Estimate DECREASED Large Platelets PRESENT Plt Morphology Comment NOTED RBC Morphology NOTED Hypochromasia Macrocytosis 1+ (5-14) Ovalocytes 1+ (5-14) [place] Cells 2+ (3-5) Acanthocytes (Spur) 1+ (0-2) Smear Path Review PT 10.9 INR 1.0 Anion Gap 16 Estim Creat Clear Calc 46.1 Estimated GFR 34 Random Glucose 208 H Calcium 15.2 H* Lactate Dehydrogenase Cancelled 556 H Blood Type Antibody Screen Post-Trans Add Testing Pathologist Comment MILLER 02/01/25 08:33 MCV 92.7 MCH 32.6 MCHC 35.2 RDW 18.6 H Plt Count 36 L D MPV 9.4 Immature Gran % (Auto) Cancelled Neut % (Auto) Cancelled Lymph % (Auto) Cancelled [place] % (Auto) Cancelled Eos % (Auto) Cancelled Baso % (Auto) Cancelled Lymph # (Auto) Cancelled [place] # (Auto) Cancelled Eos # (Auto) Cancelled Baso # (Auto) Cancelled Abs Immat Gran (auto) Cancelled Absolute Neuts (auto) Cancelled Absolute Nucleated RBC 0.000 Nucleated RBC % (auto) 0.0 Neutrophils % (Manual) 40 L Band Neutrophils % 10 H Lymphocytes % (Manual) 3 L Atypical Lymphs % (Man) 12 H Monocytes % (Manual) 30 H Promyelocytes % 1 Blast Cells % (Manual) 4 Abs Neuts (Manual) 4.2 Lymphocytes # (Manual) 0.2 L Atyp Lymphs # (Manual) 1.0 Monocytes # (Manual) 2.5 H Promyelocytes # 0.1 Blast Cells # 0.3 Toxic Granulation PRESENT Toxic Vacuolation Dohle Bodies PRESENT Platelet Estimate DECREASED Large Platelets PRESENT Plt Morphology Comment NOTED RBC Morphology NOTED Hypochromasia 1+ (5-14) Macrocytosis 1+ (5-14) Ovalocytes 1+ (5-14) Mirta Cells 1+ (0-2) Acanthocytes (Spur) Smear Path Review PT INR Anion Gap 14 Estim Creat Clear Calc 48.4 Estimated GFR 36 Random Glucose 125 H Calcium 13.6 H* D Lactate Dehydrogenase Blood Type Antibody Screen Post-Trans Add Testing Pathologist Comment BBK Assessment and Plan (1) Symptomatic anemia: Status: Acute (2) Acute kidney injury: Status: Acute (3) Mouth sores: Status: Acute (4) Severe sepsis: Status: Acute (5) Pneumonia: Status: Acute (6) Neutropenic fever: Status: Acute (7) Hypercalcemia: Status: Acute Plan Pt is a 44-year-old male with a 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 Kirk at [facility], HTN, and HLD who is a direct admission to the hospital from Oncology suite after pt was noted to be febrile at 102 degrees and routine labs showed severe thrombocytopenia with undetectable platelets as well as hypercalcemia. Pt is admitted to the hospital for treatment and further evaluation of thrombocytopenia, hypercalcemia, and neutropenic fever in the the setting of pneumonia with sepsis and pt with worsening T cell lymphoma. Neutropenic fever in the setting of pneumonia with severe sepsis negative cultures CXR showed left lower lobe consolidation concerning for pneumonia DC vancomycin and cefepime, started 01/29/2025 switch to PO Doxycycline per ID rec sent tick borne panel pending Legionella Ag, and strep pneumo Neutropenic precautions ID consult; rash likely duo to Levaquin Heme/Onc following, consider hospice care; patient not ready yet Nephrology input ; IV fluids and lasix, pamidronate and renal consultation. Follow blood cultures acute Hypercalcemia 2/2 T-cell lymphoma improving slowly at 13.6 continue IVF to 200cc and Lasix to 80mg bid; monitor I\O and adjust as needed received 2nd dose of pamidronate disodium 30 mg IV x1 (received 60 mg on 01/29) Nephrology following; continue steroids and Calcitonin Trend calcium GINNY Cr 2 receiving IVF Nephrology folliwng Follow creatinine, I\O Hypotension Improved , keep on IVF maintenance as needed IV albumin Hold antihypertensives Neutropenia with Mouth sores ANC improved to 1.9 Nystatin and hold Acyclovir for now Thrombocytopenia total 4 units of PLT transfused, developed rigors and fever , repeat platelets at 31 Onc rec to hold on more transfusion now Trend platelets Acute on chronic anemia Patient's H&H improved to 9 after 2 units In the setting of T cell lymphoma and recent chemotherapy transfuse as needed if drops below 7 Trend CBC Maculopapular rash with diffuse pruritic rash for the past few days Possibly secondary to recent course of Levaquin vs chemotherapy Benadryl p.r.n. Full Code DVT Prophylaxis: Pneumatic compression Pt will require a hospitalization overnight for treatment of?thrombocytopenia, hypercalcemia, neutropenic fever, among others in the setting of pneumonia with severe sepsis and in a pt with worsening T-cell lymphoma with recent chemotherapy. Pt will require hospital level care for administration of antibiotics, IVF, blood product transfusions, IV Lasix as necessary, and close monitoring labs. Quality Stroke Does the patient have a stroke diagnosis?: No VTE Prior VTE?: No VTE Risk Level:: Medical - moderate - high VTE Device Contraindication: N/A - Device Ordered VTE Drug Contraindication: Treatment Not Indicated
[2025-02-01 16:22] LABS: Vancomycin Random 16.3 mcg/mL (15-20)
[2025-02-01 16:34] LABS: Hematocrit 25.7 % (42.0-52.0); Hemoglobin 8.8 g/dl (14.0-18.0); Mean Corpuscular HGB Conc 34.2 g/dl (31.0-36.0); Mean Corpuscular Hemoglobin 31.8 pg (27.0-33.0); Mean Corpuscular Volume 92.8 fL (80.0-98.0); Mean Platelet Volume 10.4 fL (9.4-12.4); Red Blood Count 2.77 X10*6/uL (4.60-5.80); Red Cell Distribution Width 18.4 % (11.0-16.0)
[2025-02-01] MEDS: Doxycycline Monohydrate 100 MG CAPSULE PO (17:00)
[2025-02-01 17:06] LABS: Anion Gap 14 (12-20); Blood Urea Nitrogen 24 mg/dL (9-16); Carbon Dioxide 29 mmol/L (22-29); Chloride 104 mmol/L (96-108); Creatinine Clr Calc Pharmacy 54.6; Estimated Glomerular Filt Rate 42; Glucose Random 217 mg/dL (60-115); Potassium 3.4 mmol/L (3.3-5.1); Sodium 144 mmol/L (135-145)
[2025-02-01 17:21] LABS: Platelet Count 33 X10*3/uL (160-400); WBC ABN SCTR FOR CBC 1
--- NOTE | 2025-02-01 17:21 | P.PNID_ITS ---
Subjective Subjective Date of Service: 02/01/25 Critical Care Time (minutes): 15 Comment: he has fatigue,no other complaints Objective Data Labs 02/01/25 16:27 02/01/25 16:27 Labs: Laboratory Results - last 24 hr 01/29/25 01/29/25 01/30/25 09:45 23:14 17:35 WBC RBC Hgb Hct MCV MCH MCHC RDW Plt Count MPV Immature Gran % (Auto) Neut % (Auto) Lymph % (Auto) [place] % (Auto) Eos % (Auto) Baso % (Auto) Lymph # (Auto) [place] # (Auto) Eos # (Auto) Baso # (Auto) Abs Immat Gran (auto) Absolute Neuts (auto) Absolute Nucleated RBC Nucleated RBC % (auto) Neutrophils % (Manual) Band Neutrophils % Lymphocytes % (Manual) Atypical Lymphs % (Man) Monocytes % (Manual) Promyelocytes % Blast Cells % (Manual) Abs Neuts (Manual) Lymphocytes # (Manual) Atyp Lymphs # (Manual) Monocytes # (Manual) Promyelocytes # Blast Cells # Toxic Granulation Toxic Vacuolation Dohle Bodies Platelet Estimate Large Platelets Plt Morphology Comment RBC Morphology Hypochromasia Macrocytosis Ovalocytes [place] Cells Acanthocytes (Spur) Smear Path Review SEE NOTE PT INR Sodium Potassium Chloride Carbon Dioxide Anion Gap BUN Creatinine Estim Creat Clear Calc Estimated GFR Random Glucose Calcium Lactate Dehydrogenase Random Vancomycin Blood Type Unknown Antibody Screen NEGATIVE Post-Trans Add Testing Not Reportable Pathologist Comment ARINK SN 01/31/25 01/31/25 02/01/25 19:56 19:56 08:32 WBC 5.7 RBC 3.16 L Hgb 10.1 L Hct 29.0 L MCV 91.8 MCH 32.0 MCHC 34.8 RDW 19.1 H Plt Count 15 L* MPV 11.9 Immature Gran % (Auto) Cancelled Neut % (Auto) Cancelled Lymph % (Auto) Cancelled [place] % (Auto) Cancelled Eos % (Auto) Cancelled Baso % (Auto) Cancelled Lymph # (Auto) Cancelled [place] # (Auto) Cancelled Eos # (Auto) Cancelled Baso # (Auto) Cancelled Abs Immat Gran (auto) Cancelled Absolute Neuts (auto) Cancelled Absolute Nucleated RBC 0.000 Nucleated RBC % (auto) 0.0 Neutrophils % (Manual) 48 Band Neutrophils % 18 H Lymphocytes % (Manual) 10 L Atypical Lymphs % (Man) 6 Monocytes % (Manual) 18 H Promyelocytes % Blast Cells % (Manual) Abs Neuts (Manual) 3.8 Lymphocytes # (Manual) 0.6 L Atyp Lymphs # (Manual) 0.3 Monocytes # (Manual) 1.0 Promyelocytes # Blast Cells # Toxic Granulation PRESENT Toxic Vacuolation PRESENT Dohle Bodies PRESENT Platelet Estimate DECREASED Large Platelets PRESENT Plt Morphology Comment NOTED RBC Morphology NOTED Hypochromasia Macrocytosis 1+ (5-14) Ovalocytes 1+ (5-14) [place] Cells 2+ (3-5) Acanthocytes (Spur) 1+ (0-2) Smear Path Review PT 10.9 INR 1.0 Sodium 141 Potassium 4.0 Chloride 100 Carbon Dioxide 29 Anion Gap 16 BUN 21 H Creatinine 2.11 H Estim Creat Clear Calc 46.1 Estimated GFR 34 Random Glucose 208 H Calcium 15.2 H* Lactate Dehydrogenase Cancelled 556 H Random Vancomycin Blood Type Antibody Screen Post-Trans Add Testing Pathologist Comment BBK 02/01/25 02/01/25 02/01/25 08:33 15:28 16:27 WBC 8.3 RBC 2.73 L Hgb 8.9 L Hct 25.3 L MCV 92.7 MCH 32.6 MCHC 35.2 RDW 18.6 H Plt Count 36 L D MPV 9.4 Immature Gran % (Auto) Cancelled Neut % (Auto) Cancelled Lymph % (Auto) Cancelled [place] % (Auto) Cancelled Eos % (Auto) Cancelled Baso % (Auto) Cancelled Lymph # (Auto) Cancelled [place] # (Auto) Cancelled Eos # (Auto) Cancelled Baso # (Auto) Cancelled Abs Immat Gran (auto) Cancelled Absolute Neuts (auto) Cancelled Absolute Nucleated RBC 0.000 Nucleated RBC % (auto) 0.0 Neutrophils % (Manual) 40 L Band Neutrophils % 10 H Lymphocytes % (Manual) 3 L Atypical Lymphs % (Man) 12 H Monocytes % (Manual) 30 H Promyelocytes % 1 Blast Cells % (Manual) 4 Abs Neuts (Manual) 4.2 Lymphocytes # (Manual) 0.2 L Atyp Lymphs # (Manual) 1.0 Monocytes # (Manual) 2.5 H Promyelocytes # 0.1 Blast Cells # 0.3 Toxic Granulation PRESENT Toxic Vacuolation Dohle Bodies PRESENT Platelet Estimate DECREASED Large Platelets PRESENT Plt Morphology Comment NOTED RBC Morphology NOTED Hypochromasia 1+ (5-14) Macrocytosis 1+ (5-14) Ovalocytes 1+ (5-14) [place] Cells 1+ (0-2) Acanthocytes (Spur) Smear Path Review PT INR Sodium 145 144 Potassium 4.1 3.4 Chloride 104 104 Carbon Dioxide 31 H 29 Anion Gap 14 14 BUN 25 H 24 H Creatinine 2.01 H 1.78 H Estim Creat Clear Calc 48.4 54.6 Estimated GFR 36 42 Random Glucose 125 H 217 H Calcium 13.6 H* D 12.7 H* D Lactate Dehydrogenase Random Vancomycin 16.3 Blood Type Antibody Screen Post-Trans Add Testing Pathologist Comment BBK Physical Exam 2 Vital Signs: Vital Signs: Last Vital Signs Temp 97.2 F 02/01/25 15:20 Pulse 104 H 02/01/25 15:20 Resp 17 02/01/25 15:20 BP 105/70 02/01/25 17:00 Pulse Ox 98 02/01/25 15:20 O2 Del Method Nasal Cannula 02/01/25 15:20 O2 Flow Rate 2 02/01/25 15:20 BMI result Body Mass Index 25.1 Const: General: cooperative HEENT: Head: Yes normal to inspection Face and sinus: Yes normal facial exam Mouth: Normal oral and palatal mucosa present Teeth and gingiva: d entition normal Eyes: General: appearance normal, both eyes and all related structures P upils: Equal, round and reactive pupils present Resp: Effort & Inspection: normal respiratory effort Cardio: Rate: regular rate Rhythm: regular rhythm GI: Palpation (GI): Soft to palpation and nontender : General: Yes no CVA tenderness Back/Spine/Pelvis: Back: no CVA tenderness Skin: General skin exam: no rashes or lesions noted Neuro: General: moves all extremities Cranial nerves: Yes Equal, round and reactive pupils present Extrem: General: Yes normal to inspection Psych: Appearance: grossly normal Assessment and Plan Assessment and plan (1) Neutropenic fever: Problem details: possible allergy to levaquin and possible anaplasmosis Status: Acute Assessment and Plan: Po Doxycycline for 10 days, 100 bid No Levaquin Time Spent With Patient Time: Total time managing care of this patient today ____ minutes.
[2025-02-01 17:22] LABS: Calcium 12.7 mg/dL (8.4-10.2); White Blood Count 8.4 X10*3/uL (4.8-10.8)
[2025-02-01 18:43] LABS: Atypical Lymph Absolute Manual 0.4 x10*3/uL; Atypical Lymphs Percent Manual 5 % (0-6); Band Neutrophils Percent 13 % (3-5); Blast Percent 1 %; Blastocytes Absolute 0.1 X10*3/uL; Eosinophils Absolute Manual 0.1 X10*3/uL (0.0-0.4); Eosinophils Percent Manual 1 % (0-4); Lymphocytes Absolute Manual 0.7 X10*3/uL (1.2-4.9); Lymphocytes Percent Manual 8 % (20-40); Monocytes Absolute Manual 1.8 X10*3/uL (0.1-1.2); Monocytes Percent Manual 22 % (2-11); Neutrophils Absolute Manual 5.3 X10*3/uL (2.0-8.3); Neutrophils Percent Manual 50 % (45-73)
[2025-02-01 18:44] LABS: Burr Cells 1+ (0-2) /OIF; RBC Morphology NOTED; Target Cells 1+ (5-14) /OIF
[2025-02-01 18:46] LABS: Dohle Bodies PRESENT; Hypochromasia 1+ (5-14) /OIF; Macrocytosis 1+ (5-14) /OIF; Toxic Granulation PRESENT
[2025-02-01 18:47] LABS: Platelet Estimate DECREASED (NORMAL); Platelet Morphology Comment NORMAL; Polychromasia 1+ (0-2) /OIF
[2025-02-01] MEDS: Mirtazapine 15 MG TABLET PO (20:28)
[2025-02-01] MEDS: Mag&Al/Sim/Diphenhyd/Lidocaine 10 ML ORAL.SUSP PO (23:37)
[2025-02-02] MEDS: Melatonin 3 MG TABLET 6 MG PO (00:28)
[2025-02-02 01:28] VITALS: RESP 18
[2025-02-02 03:22] VITALS: BP 118/76; PULSE 102; RESP 18; TEMP 36.4; O2SAT 92
[2025-02-02] MEDS: 0.9 % Sodium Chloride 1,000 ML 200 ML IVCONT ×2 (03:38→09:12)
[2025-02-02] MEDS: Doxycycline Monohydrate 100 MG CAPSULE PO ×2 (05:21→16:37)
[2025-02-02 06:21] LABS: Hematocrit 23.9 % (42.0-52.0); Hemoglobin 8.3 g/dl (14.0-18.0); Mean Corpuscular HGB Conc 34.7 g/dl (31.0-36.0); Mean Corpuscular Volume 92.3 fL (80.0-98.0); NRBC Pct Auto 0.4 /100WBC (0.0-0.2); Platelet Count 24 X10*3/uL (160-400); Red Blood Count 2.59 X10*6/uL (4.60-5.80); Red Cell Distribution Width 18.3 % (11.0-16.0); WBC ABN SCTR FOR CBC 1
[2025-02-02 06:22] LABS: White Blood Count 10.5 X10*3/uL (4.8-10.8)
[2025-02-02 07:10] VITALS: BP 115/67; PULSE 97; RESP 17; TEMP 36.2; O2SAT 93
[2025-02-02 07:26] LABS: Anion Gap 13 (12-20); Blood Urea Nitrogen 26 mg/dL (9-16); Calcium 11.3 mg/dL (8.4-10.2); Carbon Dioxide 29 mmol/L (22-29); Chloride 106 mmol/L (96-108); Creatinine Clr Calc Pharmacy 61.2; Estimated Glomerular Filt Rate 48; Glucose Random 89 mg/dL (60-115); Potassium 2.7 mmol/L (3.3-5.1); Sodium 145 mmol/L (135-145)
--- NOTE | 2025-02-02 07:28 | MHC.CM.PN ---
Addendum entered by Rae Dhillon RN 02/02/25 07:43: CM REACHING OUT TO FS REGARDING POSSIBILITY TO ADD MH FOR [facility]OSPICE. Original Note: CM RECEIVED MESSAGE FROM [facility] THAT PT DOES NOT HAVE [facility] BENEFIT W/[employer] PLAN HOWEVER THEY WILL PROVIDE A SET NUMBER OF FREE VISITS IF NEEDED ON DC.
[2025-02-02 07:53] LABS: Atypical Lymph Absolute Manual 0.6 x10*3/uL; Atypical Lymphs Percent Manual 6 % (0-6); Band Neutrophils Percent 6 % (3-5); Blast Percent 4 %; Blastocytes Absolute 0.4 X10*3/uL; Eosinophils Absolute Manual 0.1 X10*3/uL (0.0-0.4); Eosinophils Percent Manual 1 % (0-4); Lymphocytes Absolute Manual 0.3 X10*3/uL (1.2-4.9); Lymphocytes Percent Manual 3 % (20-40); Monocytes Absolute Manual 2.4 X10*3/uL (0.1-1.2); Monocytes Percent Manual 23 % (2-11); Myelocytes Absolute 0.1 X10*/uL; Myelocytes Percent 1 %; Neutrophils Absolute Manual 6.7 X10*3/uL (2.0-8.3); Neutrophils Percent Manual 58 % (45-73)
[2025-02-02 07:57] LABS: Ovalocytes 1+ (5-14) /OIF; Platelet Estimate DECREASED (NORMAL); Platelet Morphology Comment NORMAL; RBC Morphology NOTED; Stomatocytes 1+ (5-14) /OIF
[2025-02-02 07:58] LABS: Burr Cells 1+ (0-2) /OIF; Dohle Bodies PRESENT; Smudge Cells PRESENT; Tear Drop Cells 1+ (0-2) /OIF; Toxic Granulation PRESENT
[2025-02-02] MEDS: Furosemide 20 MG/2 ML VIAL 80 MG IVPUSH ×2 (09:12→16:36)
[2025-02-02] MEDS: Potassium Chloride Packet 20 MEQ PACKET 40 MEQ PO ×3 (09:13→18:20)
[2025-02-02] MEDS: Magnesium Oxide 400 MG TABLET PO ×2 (09:13→21:41)
[2025-02-02] MEDS: levETIRAcetam 250 MG TABLET 750 MG PO ×2 (09:13→21:41)
[2025-02-02] MEDS: Atovaquone 750 MG/5 ML ORAL.SUSP 1500 MG PO (09:13)
[2025-02-02] MEDS: 0.9 % Sodium Chloride Flush 3 ML SYRINGE IVFLUSH ×2 (09:14→16:41)
[2025-02-02] MEDS: LETERMOVIR 480 MG 480 EACH PO (09:14)
[2025-02-02] MEDS: Calcitonin,Salmon,Synth Nasal 3.7 ML BOTTLE 1 SPRAY NOSTRILALT (09:14)
[2025-02-02] MEDS: Ammonium Lactate 12 % Lotion 226 GM BOTTLE 1 APPL TOPICAL ×2 (09:15→21:47)
[2025-02-02] MEDS: Nystatin Oral Susp 500,000 UNIT/5 ML ORAL.SUSP 500000 UNIT PO ×4 (09:20→21:40)
--- NOTE | 2025-02-02 09:54 | P.PNIM_ITS ---
Subjective Subjective Date of Service: 02/02/25 Interval History: seen and evaluated this morning feels tired overall but little better PLT around 24 Cr improved to 1.6 and Ca improved to 11.3 no fever overnight no other events Review of Systems Review of Systems: Yes all other systems are reviewed and are negative Physical Exam 2 Vital Signs: Vital Signs: Last Vital Signs Temp 97.1 F 02/02/25 07:10 Pulse 97 02/02/25 07:10 Resp 17 02/02/25 07:10 BP 115/67 02/02/25 07:10 Pulse Ox 93 02/02/25 07:10 O2 Del Method Room Air 02/02/25 07:10 O2 Flow Rate 2 02/02/25 03:22 BMI result Body Mass Index 25.1 Const: Other: Constitutional : Awake, interactive, frail looking Neck : Normal inspection, Supple Cardiovascular : RRR, no JVP, trace lower extremity edema Respiratory : fair bilateral air entry, fine Lt side crackles, no wheezes or rhonchi, on O2 supplement Gastrointestinal: soft, lax, Normal bowel sounds, Non tender Skin : Warm, Dry skin with rash on back Neurological : Alert & oriented x3, No focal deficit Objective Data Active Medications Acetaminophen (Acetaminophen 325 Mg Tablet) 650 mg PO Q6H PRN PRN Reason: Pain, Mild 1-3,fever,headache Last Admin: 01/30/25 09:26 Dose: 650 mg Documented By: MAXIMILIAN Acetaminophen (Acetaminophen 325 Mg Tablet) 975 mg PO ONCE PRN PRN Reason: before platelets/PRBCs transfusion Last Admin: 01/31/25 23:22 Dose: 975 mg Documented By: ENRICO Acyclovir (Acyclovir 200 Mg Capsule) 400 mg PO TID [facility] Last Admin: 01/31/25 08:51 Dose: 400 mg Documented By: MAXIMILIAN Atovaquone (Atovaquone 750 Mg/5 Ml Oral.Susp) 1,500 mg PO DAILY@0800 [facility] Last Admin: 02/02/25 09:13 Dose: 1,500 mg Documented By: CLEMENT Calcitonin [place] (Calcitonin,[place],Synth Nasal 3.7 Ml Bottle) 1 spray NOSTRILALT BID [facility] Last Admin: 02/02/25 09:14 Dose: 1 spray Documented By: CLEMENT Diphenhydramine HCl (Diphenhydramine Hcl 50 Mg/Ml Vial) 25 mg IVPUSH Q6H PRN PRN Reason: Itching Doxycycline Monohydrate (Doxycycline Monohydrate 100 Mg Capsule) 100 mg PO Q12H [facility] Last Admin: 02/02/25 05:21 Dose: 100 mg Documented By: JAMARI Furosemide (Furosemide 20 Mg/2 Ml Vial) 80 mg IVPUSH BID@0900,1800 [facility]; Protocol Last Admin: 02/02/25 09:12 Dose: 80 mg Documented By: CLEMENT Sodium Chloride (Ns) 1,000 mls @ 200 mls/hr IVCONT .Q5H [facility] Last Admin: 02/02/25 09:12 Dose: 200 mls/hr Documented By: CLEMENT Acetaminophen (Ofirmev) 1,000 mg in 100 mls @ 400 mls/hr IV ONCE PRN PRN Reason: Rigors Last Infusion: 01/30/25 15:30 Dose: Infused Documented By: MAXIMILIAN Lactic Acid (Ammonium Lactate 12 % Lotion 226 Gm Bottle) 1 appl TOPICAL BID [facility]; Protocol Last Admin: 02/02/25 09:15 Dose: 1 appl Documented By: CLEMENT Levetiracetam (Levetiracetam 250 Mg Tablet) 750 mg PO BID [facility] Last Admin: 02/02/25 09:13 Dose: 750 mg Documented By: CLEMENT Magnesium Hydroxide (Milk Of Magnesia 30 Ml Oral.Susp) 30 ml PO DAILY PRN PRN Reason: Constipation Magnesium Oxide (Magnesium Oxide 400 Mg Tablet) 400 mg PO BID [facility] Last Admin: 02/02/25 09:13 Dose: 400 mg Documented By: CLEMENT Melatonin (Melatonin 3 Mg Tablet) 6 mg PO BEDTIME PRN PRN Reason: Insomnia Last Admin: 02/02/25 00:28 Dose: 6 mg Documented By: JAMARI Comments: requested for sleep Methylprednisolone Sodium Succinate (Methylprednisolone Sod Succ 40 Mg/Ml Vial) 40 mg IVPUSH Q24H [facility] Last Admin: 02/01/25 11:31 Dose: 40 mg Documented By: CLEMENT Mirtazapine (Mirtazapine 15 Mg Tablet) 15 mg PO BEDTIME [facility] Last Admin: 02/01/25 20:28 Dose: 15 mg Documented By: JAMARI Pt Own (Letermovir (480 Mg Tablet)) 480 mg PO DAILY [facility] Last Admin: 02/02/25 09:14 Dose: 480 mg Documented By: CLEMENT Nystatin (Nystatin Oral Susp 500,000 Unit/5 Ml Oral.Susp) 500,000 unit PO QID [facility]; Protocol Last Admin: 02/02/25 09:20 Dose: 500,000 unit Documented By: CLEMENT Polyethylene Glycol (Polyethylene Glycol 3350 17 Gm Powd.Pack) 17 gm PO BID PRN PRN Reason: Constipation Potassium Chloride (Potassium Chloride Packet 20 Meq Packet) 40 meq PO Q2H [facility] Stop: 02/02/25 11:01 Last Admin: 02/02/25 09:13 Dose: 40 meq Documented By: CLEMENT Propranolol HCl (Propranolol Hcl 10 Mg Tablet) 10 mg PO TID [facility]; Protocol Last Admin: 01/30/25 09:14 Dose: 10 mg Documented By: MAXIMILIAN Sodium Chloride (0.9 % Sodium Chloride Flush 3 Ml Syringe) 3 ml IVFLUSH QSHIFT [facility] Last Admin: 02/02/25 09:14 Dose: 3 ml Documented By: CLEMENT Labs 02/02/25 05:52 02/02/25 05:52 Labs: Laboratory Results - last 24 hr 01/29/25 01/30/25 02/01/25 23:14 17:35 15:28 MCV MCH MCHC RDW Plt Count MPV Immature Gran % (Auto) Neut % (Auto) Lymph % (Auto) [place] % (Auto) Eos % (Auto) Baso % (Auto) Lymph # (Auto) [place] # (Auto) Eos # (Auto) Baso # (Auto) Abs Immat Gran (auto) Absolute Neuts (auto) Absolute Nucleated RBC Nucleated RBC % (auto) Neutrophils % (Manual) Band Neutrophils % Lymphocytes % (Manual) Atypical Lymphs % (Man) Monocytes % (Manual) Eosinophils % (Manual) Myelocytes % Blast Cells % (Manual) Abs Neuts (Manual) Lymphocytes # (Manual) Atyp Lymphs # (Manual) Monocytes # (Manual) Eosinophils # (Manual) Myelocytes # Blast Cells # Smudge Cells Toxic Granulation Dohle Bodies Platelet Estimate Plt Morphology Comment RBC Morphology Polychromasia Hypochromasia Macrocytosis Target Cells Tear Drop Cells Ovalocytes Stomatocytes [place] Cells Smear Path Review SEE NOTE Anion Gap Estim Creat Clear Calc Estimated GFR Random Glucose Calcium Random Vancomycin 16.3 Post-Trans Add Testing Not Reportable Pathologist Comment MILLER ELIZABETH 02/01/25 02/02/25 16:27 05:52 MCV 92.8 92.3 MCH 31.8 32.0 MCHC 34.2 34.7 RDW 18.4 H 18.3 H Plt Count 33 L 24 L D MPV 10.4 11.0 Immature Gran % (Auto) Cancelled Cancelled Neut % (Auto) Cancelled Cancelled Lymph % (Auto) Cancelled Cancelled [place] % (Auto) Cancelled Cancelled Eos % (Auto) Cancelled Cancelled Baso % (Auto) Cancelled Cancelled Lymph # (Auto) Cancelled Cancelled [place] # (Auto) Cancelled Cancelled Eos # (Auto) Cancelled Cancelled Baso # (Auto) Cancelled Cancelled Abs Immat Gran (auto) Cancelled Cancelled Absolute Neuts (auto) Cancelled Cancelled Absolute Nucleated RBC 0.000 0.040 H Nucleated RBC % (auto) 0.0 0.4 H Neutrophils % (Manual) 50 58 Band Neutrophils % 13 H 6 H Lymphocytes % (Manual) 8 L 3 L Atypical Lymphs % (Man) 5 6 Monocytes % (Manual) 22 H 23 H Eosinophils % (Manual) 1 1 Myelocytes % 1 Blast Cells % (Manual) 1 4 Abs Neuts (Manual) 5.3 6.7 Lymphocytes # (Manual) 0.7 L 0.3 L Atyp Lymphs # (Manual) 0.4 0.6 Monocytes # (Manual) 1.8 H 2.4 H Eosinophils # (Manual) 0.1 0.1 Myelocytes # 0.1 Blast Cells # 0.1 0.4 Smudge Cells PRESENT Toxic Granulation PRESENT PRESENT Dohle Bodies PRESENT PRESENT Platelet Estimate DECREASED DECREASED Plt Morphology Comment NORMAL NORMAL RBC Morphology NOTED NOTED Polychromasia 1+ (0-2) Hypochromasia 1+ (5-14) Macrocytosis 1+ (5-14) Target Cells 1+ (5-14) Tear Drop Cells 1+ (0-2) Ovalocytes 1+ (5-14) Stomatocytes 1+ (5-14) [place] Cells 1+ (0-2) 1+ (0-2) Smear Path Review Anion Gap 14 13 Estim Creat Clear Calc 54.6 61.2 Estimated GFR 42 48 Random Glucose 217 H 89 Calcium 12.7 H* D 11.3 H D Random Vancomycin Post-Trans Add Testing Pathologist Comment BBK Assessment and Plan (1) Symptomatic anemia: Status: Acute (2) Acute kidney injury: Status: Acute (3) Mouth sores: Status: Acute (4) Severe sepsis: Status: Acute (5) Pneumonia: Status: Acute (6) Neutropenic fever: Status: Acute (7) Hypercalcemia: Status: Acute (8) Acute hypokalemia: Status: Acute Plan Pt is a 44-year-old male with a 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 Kirk at [facility], HTN, and HLD who is a direct admission to the hospital from Oncology suite after pt was noted to be febrile at 102 degrees and routine labs showed severe thrombocytopenia with undetectable platelets as well as hypercalcemia. Pt is admitted to the hospital for treatment and further evaluation of thrombocytopenia, hypercalcemia, and neutropenic fever in the the setting of pneumonia with sepsis and pt with worsening T cell lymphoma. Neutropenic fever in the setting of pneumonia with severe sepsis negative cultures CXR showed left lower lobe consolidation concerning for pneumonia DC vancomycin and cefepime, started 01/29/2025 switched to PO Doxycycline per ID rec 02/01/25 pending tick borne panel pending Legionella Ag, and strep pneumo Neutropenic precautions; recovered ANC ID consult; rash likely duo to Levaquin , will check tick borne panel Heme/Onc following, consider hospice care; patient not ready yet Nephrology input ; IV fluids and lasix, pamidronate and renal consultation. Follow blood cultures acute Hypercalcemia 2/2 T-cell lymphoma improving slowly at 11.3 continue IVF to 200cc and Lasix to 80mg bid; monitor I\O and adjust as needed received 2nd dose of pamidronate disodium 30 mg IV x1 (received 60 mg on 01/29) Nephrology following; continue steroids DC Calcitonin as he had it for 3 days now Trend calcium Acute hypokalemia K of 2.7 give replacement and recheck BMP GINNY Cr 2 receiving IVF Nephrology folliwng Follow creatinine, I\O Hypotension Improved , on IVF maintenance as needed IV albumin Hold antihypertensives Neutropenia with Mouth sores ANC improved to 1.9 Nystatin and restart Acyclovir for now Thrombocytopenia total 4 units of PLT transfused, developed rigors and fever , repeat platelets at 31 Onc rec to hold on more transfusion now Trend platelets Acute on chronic anemia Patient's H&H improved to 9 after 2 units In the setting of T cell lymphoma and recent chemotherapy transfuse as needed if drops below 7 Trend CBC Maculopapular rash with diffuse pruritic rash for the past few days Possibly secondary to recent course of Levaquin vs chemotherapy Benadryl p.r.n. Full Code DVT Prophylaxis: Pneumatic compression Pt will require a hospitalization overnight for treatment of?thrombocytopenia, hypercalcemia, neutropenic fever, among others in the setting of pneumonia with severe sepsis and in a pt with worsening T-cell lymphoma with recent chemotherapy. Pt will require hospital level care for administration of antibiotics, IVF, blood product transfusions, IV Lasix as necessary, and close monitoring labs. Quality Stroke Does the patient have a stroke diagnosis?: No VTE Prior VTE?: No VTE Risk Level:: Medical - moderate - high VTE Device Contraindication: N/A - Device Ordered VTE Drug Contraindication: Treatment Not Indicated
[2025-02-02 11:03] VITALS: BP 114/76; PULSE 105; RESP 17; TEMP 36.9; O2SAT 94
[2025-02-02] MEDS: methylPREDNISolone Sod Succ 40 MG/ML VIAL IVPUSH (12:47)
[2025-02-02 15:32] VITALS: BP 127/73; PULSE 98; RESP 18; TEMP 36.1; O2SAT 96
[2025-02-02 15:56] LABS: Anion Gap 14 (12-20); Blood Urea Nitrogen 22 mg/dL (9-16); Calcium 11.1 mg/dL (8.4-10.2); Carbon Dioxide 28 mmol/L (22-29); Chloride 104 mmol/L (96-108); Creatinine Clr Calc Pharmacy 66.2; Estimated Glomerular Filt Rate 52; Glucose Random 192 mg/dL (60-115); Potassium 3.6 mmol/L (3.3-5.1); Sodium 142 mmol/L (135-145)
[2025-02-02] MEDS: Acyclovir 200 MG CAPSULE 400 MG PO ×2 (16:40→21:41)
--- NOTE | 2025-02-02 19:50 | PM.PNNEP ---
Subjective Subjective Date of Service: 02/02/25 Interval history: Events noted. D/W Hospitalist; Cr improved to 1.6 and Ca improved to 11.3 Physical Exam Vital Signs: Vital Signs: Last Vital Signs Temp 96.9 F 02/02/25 15:32 Pulse 98 02/02/25 15:32 Resp 18 02/02/25 15:32 BP 127/73 02/02/25 15:32 Pulse Ox 96 02/02/25 15:32 O2 Del Method Room Air 02/02/25 15:32 O2 Flow Rate 2 02/02/25 03:22 BMI result Body Mass Index 25.1 Const: General: no acute distress Orientation/consciousness: patient oriented x3 Eyes: EOM: EOMs intact bilaterally Neck: Neck: Yes supple Resp: Auscultation: diminished lung sounds Cardio: Rate: regular rate GI: Palpation (GI): Soft to palpation Neuro: General: patient oriented x3 Objective Data Labs 02/02/25 05:52 02/02/25 15:19 Labs: Laboratory Results - last 24 hr 02/02/25 02/02/25 05:52 15:19 WBC 10.5 RBC 2.59 L Hgb 8.3 L Hct 23.9 L MCV 92.3 MCH 32.0 MCHC 34.7 RDW 18.3 H Plt Count 24 L D MPV 11.0 Immature Gran % (Auto) Cancelled Neut % (Auto) Cancelled Lymph % (Auto) Cancelled [place] % (Auto) Cancelled Eos % (Auto) Cancelled Baso % (Auto) Cancelled Lymph # (Auto) Cancelled [place] # (Auto) Cancelled Eos # (Auto) Cancelled Baso # (Auto) Cancelled Abs Immat Gran (auto) Cancelled Absolute Neuts (auto) Cancelled Absolute Nucleated RBC 0.040 H Nucleated RBC % (auto) 0.4 H Neutrophils % (Manual) 58 Band Neutrophils % 6 H Lymphocytes % (Manual) 3 L Atypical Lymphs % (Man) 6 Monocytes % (Manual) 23 H Eosinophils % (Manual) 1 Myelocytes % 1 Blast Cells % (Manual) 4 Abs Neuts (Manual) 6.7 Lymphocytes # (Manual) 0.3 L Atyp Lymphs # (Manual) 0.6 Monocytes # (Manual) 2.4 H Eosinophils # (Manual) 0.1 Myelocytes # 0.1 Blast Cells # 0.4 Smudge Cells PRESENT Toxic Granulation PRESENT Dohle Bodies PRESENT Platelet Estimate DECREASED Plt Morphology Comment NORMAL RBC Morphology NOTED Tear Drop Cells 1+ (0-2) Ovalocytes 1+ (5-14) Stomatocytes 1+ (5-14) [place] Cells 1+ (0-2) Sodium 145 142 Potassium 2.7 L* D 3.6 D Chloride 106 104 Carbon Dioxide 29 28 Anion Gap 13 14 BUN 26 H 22 H Creatinine 1.59 H 1.47 H Estim Creat Clear Calc 61.2 66.2 Estimated GFR 48 52 Random Glucose 89 192 H Calcium 11.3 H D 11.1 H Procedures Date of Service Date of Service: 02/02/25 Assessment & Plan Assessment and plan (1) Acute kidney injury: Status: Acute Plan Patient has been treated for T-cell lymphoma with multiple therapies, presenting with pancytopenia and hypercalcemia. PTH appropriately suppressed; Received 90mg dose of bisphosphonate given; On NaCl 0.9% 200 ml/hour and Lasix to 80 mg b.i.d Acute kidney injury likely due to tubular injury; Serum creatinine improved; USS kidneys did not show any obstruction Normal uric acid levels; C/W current supportive care for now Progress Note: Quality Stroke Does the patient have a stroke diagnosis?: No
[2025-02-02 20:00] VITALS: BP 110/75; PULSE 109; RESP 16; TEMP 36.3; O2SAT 95
[2025-02-02] MEDS: Mirtazapine 15 MG TABLET PO (21:41)
[2025-02-02 21:58] LABS: A. Phagocytphilium DNA,RT-PCR NOT DETECTED (NOT DETECTED); Babesia Microti DNA, RT-PCR NOT DETECTED (NOT DETECTED); Borrelia Miyamotoi,DNA RT-PCR NOT DETECTED (NOT DETECTED); E.Chaffeensis DNA RT-PCR NOT DETECTED (NOT DETECTED); Lyme(Borrelia ssp)DNA RT-PCR NOT DETECTED (NOT DETECTED)
[2025-02-03] VITALS (7 sets, daily range): BP systolic 99–121; BP diastolic 62–84; PULSE 98–111; RESP 16–18; TEMP 36.1–37.1; O2SAT 92–96
[2025-02-03] MEDS: 0.9 % Sodium Chloride Flush 3 ML SYRINGE IVFLUSH ×2 (00:12→08:57)
[2025-02-03] MEDS: Doxycycline Monohydrate 100 MG CAPSULE PO ×2 (05:50→17:43)
[2025-02-03 07:26] LABS: Hemoglobin 9.8 g/dl (14.0-18.0); Mean Corpuscular HGB Conc 33.8 g/dl (31.0-36.0); Mean Corpuscular Hemoglobin 31.3 pg (27.0-33.0); Mean Corpuscular Volume 92.7 fL (80.0-98.0); Mean Platelet Volume 12.8 fL (9.4-12.4); NRBC Pct Auto 0.5 /100WBC (0.0-0.2); Red Blood Count 3.13 X10*6/uL (4.60-5.80); White Blood Count 11.7 X10*3/uL (4.8-10.8)
[2025-02-03 07:27] LABS: Anion Gap 18 (12-20)
[2025-02-03 07:35] LABS: Alanine Aminotransferase 42 U/L (0-40); Albumin Level 4.1 g/dL (3.5-5.0); Aspartate Amino Transferase 72 U/L (5-37); Bilirubin Direct 0.3 mg/dL (0.0-0.5); Bilirubin Total 0.8 mg/dL (0.0-1.0); Blood Urea Nitrogen 32 mg/dL (9-16); Carbon Dioxide 30 mmol/L (22-29); Chloride 103 mmol/L (96-108); Creatinine Clr Calc Pharmacy 59.3; Estimated Glomerular Filt Rate 46; Glucose Random 101 mg/dL (60-115); Potassium 3.5 mmol/L (3.3-5.1); Sodium 147 mmol/L (135-145); Total Protein 6.4 g/dL (6.5-8.0)
[2025-02-03 07:38] LABS: Platelet Count 20 X10*3/uL (160-400)
[2025-02-03 07:53] LABS: Calcium 12.5 mg/dL (8.4-10.2)
[2025-02-03 08:33] LABS: Atypical Lymph Absolute Manual 0.5 x10*3/uL; Atypical Lymphs Percent Manual 4 % (0-6); Band Neutrophils Percent 2 % (3-5); Blast Percent 6 %; Blastocytes Absolute 0.7 X10*3/uL; Lymphocytes Absolute Manual 0.2 X10*3/uL (1.2-4.9); Lymphocytes Percent Manual 2 % (20-40); Monocytes Absolute Manual 3.2 X10*3/uL (0.1-1.2); Monocytes Percent Manual 27 % (2-11); Neutrophils Absolute Manual 7.1 X10*3/uL (2.0-8.3); Neutrophils Percent Manual 59 % (45-73)
[2025-02-03 08:36] LABS: Dohle Bodies PRESENT; Macrocytosis 1+ (5-14) /OIF; Ovalocytes 1+ (5-14) /OIF; Platelet Estimate DECREASED (NORMAL); Platelet Morphology Comment NORMAL; Polychromasia 1+ (0-2) /OIF; RBC Morphology NOTED; Stomatocytes 1+ (5-14) /OIF; Tear Drop Cells 2+ (3-5) /OIF; Toxic Granulation PRESENT
[2025-02-03] MEDS: Nystatin Oral Susp 500,000 UNIT/5 ML ORAL.SUSP 500000 UNIT PO ×4 (08:40→20:37)
[2025-02-03] MEDS: Potassium Chloride Packet 20 MEQ PACKET 40 MEQ PO ×2 (08:40→10:39)
[2025-02-03] MEDS: levETIRAcetam 250 MG TABLET 750 MG PO ×2 (08:41→20:37)
[2025-02-03] MEDS: Magnesium Oxide 400 MG TABLET PO ×2 (08:41→20:38)
[2025-02-03] MEDS: Atovaquone 750 MG/5 ML ORAL.SUSP 1500 MG PO (08:41)
[2025-02-03] MEDS: Acyclovir 200 MG CAPSULE 400 MG PO ×3 (08:41→20:37)
[2025-02-03] MEDS: Furosemide 20 MG/2 ML VIAL 80 MG IVPUSH (08:41)
[2025-02-03] MEDS: LETERMOVIR 480 MG 480 EACH PO (08:41)
[2025-02-03] MEDS: 0.9 % Sodium Chloride 1,000 ML 200 ML IVCONT ×4 (08:49→20:37)
[2025-02-03] MEDS: Ammonium Lactate 12 % Lotion 226 GM BOTTLE 1 APPL TOPICAL ×2 (09:00→20:38)
[2025-02-03] MEDS: methylPREDNISolone Sod Succ 40 MG/ML VIAL IVPUSH (10:38)
[2025-02-03] MEDS: Tranexamic Acid 1,000 MG in 0.9 % Sodium Chloride 50 ML 360 MG IV (10:40)
[2025-02-03] MEDS: Fluconazole in NaCl,Iso-Osm 200 MG/100 ML PIGGYBACK 100 MG IV (10:47)
[2025-02-03 12:55] LABS: Alkaline Phosphatase 265 U/L (39-117)
--- NOTE | 2025-02-03 13:49 | P.PNIM_ITS ---
Subjective Subjective Date of Service: 02/03/25 Interval History: seen and evaluated this morning feels tired overall but little better PLT around 24 Cr improved to 1.6 and Ca increased to 12.5 no fever overnight no other events Review of Systems Review of Systems: Yes all other systems are reviewed and are negative Physical Exam 2 Vital Signs: Vital Signs: Last Vital Signs Temp 97.4 F 02/03/25 12:00 Pulse 111 H 02/03/25 12:00 Resp 17 02/03/25 12:00 BP 101/72 02/03/25 12:00 Pulse Ox 95 02/03/25 12:00 O2 Del Method Room Air 02/03/25 12:00 O2 Flow Rate 2 02/02/25 03:22 BMI result Body Mass Index 25.1 Const: Other: Constitutional : Awake, interactive, frail looking Neck : Normal inspection, Supple Cardiovascular : RRR, no JVP, trace lower extremity edema Respiratory : fair bilateral air entry, fine Lt side crackles, no wheezes or rhonchi, on O2 supplement Gastrointestinal: soft, lax, Normal bowel sounds, Non tender Skin : Warm, Dry skin with rash on back Neurological : Alert & oriented x3, No focal deficit Objective Data Active Medications Acetaminophen (Acetaminophen 325 Mg Tablet) 650 mg PO Q6H PRN PRN Reason: Pain, Mild 1-3,fever,headache Last Admin: 01/30/25 09:26 Dose: 650 mg Documented By: MAXIMILIAN Acetaminophen (Acetaminophen 325 Mg Tablet) 975 mg PO ONCE PRN PRN Reason: before platelets/PRBCs transfusion Last Admin: 01/31/25 23:22 Dose: 975 mg Documented By: ENRICO Acyclovir (Acyclovir 200 Mg Capsule) 400 mg PO TID [facility] Last Admin: 02/03/25 08:41 Dose: 400 mg Documented By: CHAVEZ Atovaquone (Atovaquone 750 Mg/5 Ml Oral.Susp) 1,500 mg PO DAILY@0800 [facility] Last Admin: 02/03/25 08:41 Dose: 1,500 mg Documented By: CHAVEZ Diphenhydramine HCl (Diphenhydramine Hcl 50 Mg/Ml Vial) 25 mg IVPUSH Q6H PRN PRN Reason: Itching Doxycycline Monohydrate (Doxycycline Monohydrate 100 Mg Capsule) 100 mg PO Q12H [facility] Last Admin: 02/03/25 05:50 Dose: 100 mg Documented By: PRAMOD Fluconazole (Fluconazole 100 Mg Tablet) 100 mg PO DAILY [facility] Furosemide (Furosemide 20 Mg/2 Ml Vial) 80 mg IVPUSH BID@0900,1800 [facility]; Protocol Last Admin: 02/03/25 08:41 Dose: 80 mg Documented By: CHAVEZ Tranexamic Acid 1,000 mg/ (Sodium Chloride) 60 mls @ 360 mls/hr IV DAILY [facility] Last Infusion: 02/03/25 10:55 Dose: Infused Documented By: RAYSA Sodium Chloride (Ns) 1,000 mls @ 200 mls/hr IVCONT .Q5H [facility] Stop: 02/05/25 11:44 Last Admin: 02/03/25 10:06 Dose: 200 mls/hr Documented By: CHAVEZ Lactic Acid (Ammonium Lactate 12 % Lotion 226 Gm Bottle) 1 appl TOPICAL BID [facility]; Protocol Last Admin: 02/03/25 09:00 Dose: 1 appl Documented By: CHAVEZ Levetiracetam (Levetiracetam 250 Mg Tablet) 750 mg PO BID [facility] Last Admin: 02/03/25 08:41 Dose: 750 mg Documented By: CHAVEZ Magnesium Hydroxide (Milk Of Magnesia 30 Ml Oral.Susp) 30 ml PO DAILY PRN PRN Reason: Constipation Magnesium Oxide (Magnesium Oxide 400 Mg Tablet) 400 mg PO BID [facility] Last Admin: 02/03/25 08:41 Dose: 400 mg Documented By: CHAVEZ Melatonin (Melatonin 3 Mg Tablet) 6 mg PO BEDTIME PRN PRN Reason: Insomnia Last Admin: 02/02/25 00:28 Dose: 6 mg Documented By: JAMARI Comments: requested for sleep Methylprednisolone Sodium Succinate (Methylprednisolone Sod Succ 40 Mg/Ml Vial) 40 mg IVPUSH Q24H [facility] Last Admin: 02/03/25 10:38 Dose: 40 mg Documented By: RAYSA Mirtazapine (Mirtazapine 15 Mg Tablet) 15 mg PO BEDTIME [facility] Last Admin: 02/02/25 21:41 Dose: 15 mg Documented By: PRAMOD Pt Own (Letermovir (480 Mg Tablet)) 480 mg PO DAILY [facility] Last Admin: 02/03/25 08:41 Dose: 480 mg Documented By: CHAVEZ Nystatin (Nystatin Oral Susp 500,000 Unit/5 Ml Oral.Susp) 500,000 unit PO QID [facility]; Protocol Last Admin: 02/03/25 12:51 Dose: 500,000 unit Documented By: CHAVEZ Polyethylene Glycol (Polyethylene Glycol 3350 17 Gm Powd.Pack) 17 gm PO BID PRN PRN Reason: Constipation Propranolol HCl (Propranolol Hcl 10 Mg Tablet) 10 mg PO TID [facility]; Protocol Last Admin: 01/30/25 09:14 Dose: 10 mg Documented By: MAXIMILIAN Sodium Chloride (0.9 % Sodium Chloride Flush 3 Ml Syringe) 3 ml IVFLUSH QSHIFT [facility]AR[facility] Last Admin: 02/03/25 08:57 Dose: 3 ml Documented By: CHAVEZ Labs 02/03/25 05:57 02/03/25 12:49 Labs: Laboratory Results - last 24 hr 02/01/25 02/02/25 02/03/25 16:27 15:19 05:57 MCV 92.7 MCH 31.3 MCHC 33.8 RDW 19.0 H Plt Count 20 L* MPV 12.8 H Immature Gran % (Auto) Cancelled Neut % (Auto) Cancelled Lymph % (Auto) Cancelled [place] % (Auto) Cancelled Eos % (Auto) Cancelled Baso % (Auto) Cancelled Lymph # (Auto) Cancelled [place] # (Auto) Cancelled Eos # (Auto) Cancelled Baso # (Auto) Cancelled Abs Immat Gran (auto) Cancelled Absolute Neuts (auto) Cancelled Absolute Nucleated RBC 0.060 H Nucleated RBC % (auto) 0.5 H Neutrophils % (Manual) 59 Band Neutrophils % 2 L Lymphocytes % (Manual) 2 L Atypical Lymphs % (Man) 4 Monocytes % (Manual) 27 H Blast Cells % (Manual) 6 Abs Neuts (Manual) 7.1 Lymphocytes # (Manual) 0.2 L Atyp Lymphs # (Manual) 0.5 Monocytes # (Manual) 3.2 H Blast Cells # 0.7 Toxic Granulation PRESENT Dohle Bodies PRESENT Platelet Estimate DECREASED Plt Morphology Comment NORMAL RBC Morphology NOTED Polychromasia 1+ (0-2) Macrocytosis 1+ (5-14) Tear Drop Cells 2+ (3-5) Ovalocytes 1+ (5-14) Stomatocytes 1+ (5-14) Anion Gap 14 18 Estim Creat Clear Calc 66.2 59.3 Estimated GFR 52 46 Random Glucose 192 H 101 Calcium 11.1 H 12.5 H* D Total Bilirubin 0.8 Direct Bilirubin AST ALT Alkaline Phosphatase Total Protein Albumin A.phagocytophil DNA PCR NOT DETECTED Babesia microti DNA PCR NOT DETECTED Borrelia sp DNA (PCR) NOT DETECTED Borrelia miyamotoi (PCR) NOT DETECTED E.chaffeensis DNA (PCR) NOT DETECTED Tick-borne Disease PCR SEE NOTE 02/03/25 02/03/25 02/03/25 05:57 05:57 05:57 MCV MCH MCHC RDW Plt Count MPV Immature Gran % (Auto) Neut % (Auto) Lymph % (Auto) [place] % (Auto) Eos % (Auto) Baso % (Auto) Lymph # (Auto) [place] # (Auto) Eos # (Auto) Baso # (Auto) Abs Immat Gran (auto) Absolute Neuts (auto) Absolute Nucleated RBC Nucleated RBC % (auto) Neutrophils % (Manual) Band Neutrophils % Lymphocytes % (Manual) Atypical Lymphs % (Man) Monocytes % (Manual) Blast Cells % (Manual) Abs Neuts (Manual) Lymphocytes # (Manual) Atyp Lymphs # (Manual) Monocytes # (Manual) Blast Cells # Toxic Granulation Dohle Bodies Platelet Estimate Plt Morphology Comment RBC Morphology Polychromasia Macrocytosis Tear Drop Cells Ovalocytes Stomatocytes Anion Gap Estim Creat Clear Calc Estimated GFR Random Glucose Calcium Total Bilirubin Cancelled Direct Bilirubin 0.3 Cancelled AST 72 H Cancelled ALT 42 H Alkaline Phosphatase Total Protein Albumin A.phagocytophil DNA PCR Babesia microti DNA PCR Borrelia sp DNA (PCR) Borrelia miyamotoi (PCR) E.chaffeensis DNA (PCR) Tick-borne Disease PCR 02/03/25 02/03/25 02/03/25 05:57 05:57 05:57 MCV MCH MCHC RDW Plt Count MPV Immature Gran % (Auto) Neut % (Auto) Lymph % (Auto) [place] % (Auto) Eos % (Auto) Baso % (Auto) Lymph # (Auto) [place] # (Auto) Eos # (Auto) Baso # (Auto) Abs Immat Gran (auto) Absolute Neuts (auto) Absolute Nucleated RBC Nucleated RBC % (auto) Neutrophils % (Manual) Band Neutrophils % Lymphocytes % (Manual) Atypical Lymphs % (Man) Monocytes % (Manual) Blast Cells % (Manual) Abs Neuts (Manual) Lymphocytes # (Manual) Atyp Lymphs # (Manual) Monocytes # (Manual) Blast Cells # Toxic Granulation Dohle Bodies Platelet Estimate Plt Morphology Comment RBC Morphology Polychromasia Macrocytosis Tear Drop Cells Ovalocytes Stomatocytes Anion Gap Estim Creat Clear Calc Estimated GFR Random Glucose Calcium Total Bilirubin Direct Bilirubin AST ALT Cancelled Alkaline Phosphatase 265 H Cancelled Total Protein 6.4 L Cancelled Albumin 4.1 A.phagocytophil DNA PCR Babesia microti DNA PCR Borrelia sp DNA (PCR) Borrelia miyamotoi (PCR) E.chaffeensis DNA (PCR) Tick-borne Disease PCR 02/03/25 05:57 MCV MCH MCHC RDW Plt Count MPV Immature Gran % (Auto) Neut % (Auto) Lymph % (Auto) [place] % (Auto) Eos % (Auto) Baso % (Auto) Lymph # (Auto) [place] # (Auto) Eos # (Auto) Baso # (Auto) Abs Immat Gran (auto) Absolute Neuts (auto) Absolute Nucleated RBC Nucleated RBC % (auto) Neutrophils % (Manual) Band Neutrophils % Lymphocytes % (Manual) Atypical Lymphs % (Man) Monocytes % (Manual) Blast Cells % (Manual) Abs Neuts (Manual) Lymphocytes # (Manual) Atyp Lymphs # (Manual) Monocytes # (Manual) Blast Cells # Toxic Granulation Dohle Bodies Platelet Estimate Plt Morphology Comment RBC Morphology Polychromasia Macrocytosis Tear Drop Cells Ovalocytes Stomatocytes Anion Gap Estim Creat Clear Calc Estimated GFR Random Glucose Calcium Total Bilirubin Direct Bilirubin AST ALT Alkaline Phosphatase Total Protein Albumin Cancelled A.phagocytophil DNA PCR Babesia microti DNA PCR Borrelia sp DNA (PCR) Borrelia miyamotoi (PCR) E.chaffeensis DNA (PCR) Tick-borne Disease PCR Assessment and Plan (1) Acute hypokalemia: Status: Acute (2) Symptomatic anemia: Status: Acute (3) Acute kidney injury: Status: Acute (4) Mouth sores: Status: Acute (5) Severe sepsis: Status: Acute (6) Neutropenic fever: Status: Acute (7) Epistaxis: Status: Acute Plan Pt is a 44-year-old male with a 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 Kirk at [facility] [place], HTN, and HLD who is a direct admission to the hospital from Oncology suite after pt was noted to be febrile at 102 degrees and routine labs showed severe thrombocytopenia with undetectable platelets as well as hypercalcemia. Pt is admitted to the hospital for treatment and further evaluation of thrombocytopenia, hypercalcemia, and neutropenic fever in the the setting of pneumonia with sepsis and pt with worsening T cell lymphoma. Neutropenic fever in the setting of pneumonia with severe sepsis negative cultures, CXR showed left lower lobe consolidation concerning for pneumonia DC vancomycin and cefepime, started 01/29/2025, switched to PO Doxycycline per ID rec 02/01/25 pending tick borne panel pending Legionella Ag, and strep pneumo dc Neutropenic precautions; recovered ANC ID consult; rash likely duo to Levaquin , will check tick borne panel Heme/Onc following, consider hospice care; patient not ready yet Nephrology input ; IV fluids and lasix, pamidronate and renal consultation. Follow blood cultures acute Hypercalcemia 2/2 T-cell lymphoma went up to 12.5 continue IVF to 200cc and Lasix to 80mg bid; monitor I\O and adjust as needed received 2nd dose of pamidronate disodium 30 mg IV x1 (received 60 mg on 01/29) Nephrology following; continue steroids , consider Denozumab DC Calcitonin as he had it for 3 days now Trend calcium Thrombocytopenia total 4 units of PLT transfused, developed rigors and fever , repeat platelets at 20 Onc rec to keep PLT >20 to give 1 unit today Trend platelets Oncology can arrange follow up visit for transfusion as needed in clinic once he is medically stable to discharge home Epistaxis Nasal packing removed To give Tranexamic acid daily Keep PLT >20 Discharge home on PO Tranexamic acid bid per dr Kirk Acute hypokalemia given replacement and recheck BMP GINNY Cr 1.6 receiving IVF Nephrology folliwng Follow creatinine, I\O Hypotension Improved , on IVF maintenance as needed IV albumin Hold antihypertensives Neutropenia with Mouth sores ANC improved to 1.9 Nystatin and restart Acyclovir for now Acute on chronic anemia Patient's H&H improved to 9 after 2 units In the setting of T cell lymphoma and recent chemotherapy transfuse as needed if drops below 7 Trend CBC Maculopapular rash with diffuse pruritic rash for the past few days Possibly secondary to recent course of Levaquin vs chemotherapy Benadryl p.r.n. Full Code DVT Prophylaxis: Pneumatic compression Pt will require a hospitalization overnight for treatment of?thrombocytopenia, hypercalcemia, neutropenic fever, among others in the setting of pneumonia with severe sepsis and in a pt with worsening T-cell lymphoma with recent chemotherapy. Pt will require hospital level care for administration of antibiotics, IVF, blood product transfusions, IV Lasix as necessary, and close monitoring labs. Quality Stroke Does the patient have a stroke diagnosis?: No VTE Prior VTE?: No VTE Risk Level:: Medical - moderate - high VTE Device Contraindication: N/A - Device Ordered VTE Drug Contraindication: Treatment Not Indicated
[2025-02-03 14:28] LABS: Anion Gap 16 (12-20); Blood Urea Nitrogen 33 mg/dL (9-16); Calcium 11.8 mg/dL (8.4-10.2); Carbon Dioxide 27 mmol/L (22-29); Chloride 103 mmol/L (96-108); Creatinine Clr Calc Pharmacy 62.7; Estimated Glomerular Filt Rate 49; Glucose Random 181 mg/dL (60-115); Potassium 4.4 mmol/L (3.3-5.1); Sodium 142 mmol/L (135-145)
--- NOTE | 2025-02-03 15:49 | MHC.CM.PN ---
Per MD rounds patient is not medically cleared to discharge. He continues to require IV ABX and Lasix as well as a blood transfusion. DP home with [facility] pro shazia visits. Patients insurance does not offer a home care benefit.
[2025-02-03] MEDS: Furosemide 40 MG/4 ML VIAL 80 MG IVPUSH (17:45)
[2025-02-03] MEDS: Mirtazapine 15 MG TABLET PO (20:38)
--- NOTE | 2025-02-03 21:25 | PM.PNNEP ---
Subjective Subjective Date of Service: 02/03/25 Interval history: seen and evaluated this morning ; feels tired overall but little better ;Cr improved to 1.6 and Ca increased to 12.5; no other events Physical Exam Vital Signs: Vital Signs: Last Vital Signs Temp 97.4 F 02/03/25 19:50 Pulse 104 H 02/03/25 19:50 Resp 18 02/03/25 19:50 BP 102/63 02/03/25 19:50 Pulse Ox 95 02/03/25 19:50 O2 Del Method Room Air 02/03/25 19:50 O2 Flow Rate 2 02/02/25 03:22 BMI result Body Mass Index 25.1 Const: General: no acute distress Orientation/consciousness: patient oriented x3 Eyes: EOM: EOMs intact bilaterally Neck: Neck: Yes supple Resp: Auscultation: diminished lung sounds Cardio: Rate: regular rate GI: Palpation (GI): Soft to palpation Neuro: General: patient oriented x3 Objective Data Labs 02/03/25 05:57 02/03/25 12:49 Labs: Laboratory Results - last 24 hr 02/01/25 02/03/25 02/03/25 16:27 05:57 05:57 WBC 11.7 H RBC 3.13 L D Hgb 9.8 L Hct 29.0 L D MCV 92.7 MCH 31.3 MCHC 33.8 RDW 19.0 H Plt Count 20 L* MPV 12.8 H Immature Gran % (Auto) Cancelled Neut % (Auto) Cancelled Lymph % (Auto) Cancelled [place] % (Auto) Cancelled Eos % (Auto) Cancelled Baso % (Auto) Cancelled Lymph # (Auto) Cancelled [place] # (Auto) Cancelled Eos # (Auto) Cancelled Baso # (Auto) Cancelled Abs Immat Gran (auto) Cancelled Absolute Neuts (auto) Cancelled Absolute Nucleated RBC 0.060 H Nucleated RBC % (auto) 0.5 H Neutrophils % (Manual) 59 Band Neutrophils % 2 L Lymphocytes % (Manual) 2 L Atypical Lymphs % (Man) 4 Monocytes % (Manual) 27 H Blast Cells % (Manual) 6 Abs Neuts (Manual) 7.1 Lymphocytes # (Manual) 0.2 L Atyp Lymphs # (Manual) 0.5 Monocytes # (Manual) 3.2 H Blast Cells # 0.7 Toxic Granulation PRESENT Dohle Bodies PRESENT Platelet Estimate DECREASED Plt Morphology Comment NORMAL RBC Morphology NOTED Polychromasia 1+ (0-2) Macrocytosis 1+ (5-14) Tear Drop Cells 2+ (3-5) Ovalocytes 1+ (5-14) Stomatocytes 1+ (5-14) Sodium 147 H Potassium 3.5 Chloride 103 Carbon Dioxide 30 H Anion Gap 18 BUN 32 H Creatinine 1.64 H Estim Creat Clear Calc 59.3 Estimated GFR 46 Random Glucose 101 Calcium 12.5 H* D Total Bilirubin 0.8 Cancelled Direct Bilirubin 0.3 AST ALT Alkaline Phosphatase Total Protein Albumin A.phagocytophil DNA PCR NOT DETECTED Babesia microti DNA PCR NOT DETECTED Borrelia sp DNA (PCR) NOT DETECTED Borrelia miyamotoi (PCR) NOT DETECTED E.chaffeensis DNA (PCR) NOT DETECTED Tick-borne Disease PCR SEE NOTE 02/03/25 02/03/25 02/03/25 05:57 05:57 05:57 WBC RBC Hgb Hct MCV MCH MCHC RDW Plt Count MPV Immature Gran % (Auto) Neut % (Auto) Lymph % (Auto) [place] % (Auto) Eos % (Auto) Baso % (Auto) Lymph # (Auto) [place] # (Auto) Eos # (Auto) Baso # (Auto) Abs Immat Gran (auto) Absolute Neuts (auto) Absolute Nucleated RBC Nucleated RBC % (auto) Neutrophils % (Manual) Band Neutrophils % Lymphocytes % (Manual) Atypical Lymphs % (Man) Monocytes % (Manual) Blast Cells % (Manual) Abs Neuts (Manual) Lymphocytes # (Manual) Atyp Lymphs # (Manual) Monocytes # (Manual) Blast Cells # Toxic Granulation Dohle Bodies Platelet Estimate Plt Morphology Comment RBC Morphology Polychromasia Macrocytosis Tear Drop Cells Ovalocytes Stomatocytes Sodium Potassium Chloride Carbon Dioxide Anion Gap BUN Creatinine Estim Creat Clear Calc Estimated GFR Random Glucose Calcium Total Bilirubin Direct Bilirubin Cancelled AST 72 H Cancelled ALT 42 H Cancelled Alkaline Phosphatase 265 H Total Protein Albumin A.phagocytophil DNA PCR Babesia microti DNA PCR Borrelia sp DNA (PCR) Borrelia miyamotoi (PCR) E.chaffeensis DNA (PCR) Tick-borne Disease PCR 02/03/25 02/03/25 02/03/25 05:57 05:57 05:57 WBC RBC Hgb Hct MCV MCH MCHC RDW Plt Count MPV Immature Gran % (Auto) Neut % (Auto) Lymph % (Auto) [place] % (Auto) Eos % (Auto) Baso % (Auto) Lymph # (Auto) [place] # (Auto) Eos # (Auto) Baso # (Auto) Abs Immat Gran (auto) Absolute Neuts (auto) Absolute Nucleated RBC Nucleated RBC % (auto) Neutrophils % (Manual) Band Neutrophils % Lymphocytes % (Manual) Atypical Lymphs % (Man) Monocytes % (Manual) Blast Cells % (Manual) Abs Neuts (Manual) Lymphocytes # (Manual) Atyp Lymphs # (Manual) Monocytes # (Manual) Blast Cells # Toxic Granulation Dohle Bodies Platelet Estimate Plt Morphology Comment RBC Morphology Polychromasia Macrocytosis Tear Drop Cells Ovalocytes Stomatocytes Sodium Potassium Chloride Carbon Dioxide Anion Gap BUN Creatinine Estim Creat Clear Calc Estimated GFR Random Glucose Calcium Total Bilirubin Direct Bilirubin AST ALT Alkaline Phosphatase Cancelled Total Protein 6.4 L Cancelled Albumin 4.1 Cancelled A.phagocytophil DNA PCR Babesia microti DNA PCR Borrelia sp DNA (PCR) Borrelia miyamotoi (PCR) E.chaffeensis DNA (PCR) Tick-borne Disease PCR 02/03/25 12:49 WBC RBC Hgb Hct MCV MCH MCHC RDW Plt Count MPV Immature Gran % (Auto) Neut % (Auto) Lymph % (Auto) [place] % (Auto) Eos % (Auto) Baso % (Auto) Lymph # (Auto) [place] # (Auto) Eos # (Auto) Baso # (Auto) Abs Immat Gran (auto) Absolute Neuts (auto) Absolute Nucleated RBC Nucleated RBC % (auto) Neutrophils % (Manual) Band Neutrophils % Lymphocytes % (Manual) Atypical Lymphs % (Man) Monocytes % (Manual) Blast Cells % (Manual) Abs Neuts (Manual) Lymphocytes # (Manual) Atyp Lymphs # (Manual) Monocytes # (Manual) Blast Cells # Toxic Granulation Dohle Bodies Platelet Estimate Plt Morphology Comment RBC Morphology Polychromasia Macrocytosis Tear Drop Cells Ovalocytes Stomatocytes Sodium 142 Potassium 4.4 D Chloride 103 Carbon Dioxide 27 Anion Gap 16 BUN 33 H Creatinine 1.55 H Estim Creat Clear Calc 62.7 Estimated GFR 49 Random Glucose 181 H Calcium 11.8 H Total Bilirubin Direct Bilirubin AST ALT Alkaline Phosphatase Total Protein Albumin A.phagocytophil DNA PCR Babesia microti DNA PCR Borrelia sp DNA (PCR) Borrelia miyamotoi (PCR) E.chaffeensis DNA (PCR) Tick-borne Disease PCR Procedures Date of Service Date of Service: 02/03/25 Assessment & Plan Assessment and plan (1) Acute kidney injury: Status: Acute (2) Hypercalcemia: Status: Acute Plan Patient has been treated for T-cell lymphoma with multiple therapies, presenting with pancytopenia and hypercalcemia. PTH appropriately suppressed; Received 90mg dose of bisphosphonate given; On NaCl 0.9% 200 ml/hour and Lasix to 80 mg b.i.d; May need Denosumab. Acute kidney injury likely due to tubular injury; Serum creatinine improved; USS kidneys did not show any obstruction; Normal uric acid levels; C/W current supportive care for now Progress Note: Quality Stroke Does the patient have a stroke diagnosis?: No
[2025-02-04] VITALS (10 sets, daily range): BP systolic 98–117; BP diastolic 17–78; PULSE 82–107; RESP 16–20; TEMP 35.9–36.9; O2SAT 96–98
[2025-02-04] MEDS: 0.9 % Sodium Chloride Flush 3 ML SYRINGE IVFLUSH ×3 (00:33→18:59)
[2025-02-04] MEDS: 0.9 % Sodium Chloride 1,000 ML 200 ML IVCONT ×3 (01:39→11:06)
[2025-02-04] MEDS: Doxycycline Monohydrate 100 MG CAPSULE PO ×2 (05:43→18:58)
[2025-02-04 07:01] LABS: Hematocrit 24.6 % (42.0-52.0); Hemoglobin 8.2 g/dl (14.0-18.0); Mean Corpuscular HGB Conc 33.3 g/dl (31.0-36.0); Mean Corpuscular Hemoglobin 31.4 pg (27.0-33.0); Mean Corpuscular Volume 94.3 fL (80.0-98.0); NRBC Pct Auto 0.7 /100WBC (0.0-0.2); Red Blood Count 2.61 X10*6/uL (4.60-5.80); Red Cell Distribution Width 18.9 % (11.0-16.0); White Blood Count 10.4 X10*3/uL (4.8-10.8)
[2025-02-04 07:12] LABS: Platelet Count 12 X10*3/uL (160-400)
[2025-02-04 07:28] LABS: Anion Gap 12 (12-20); Blood Urea Nitrogen 36 mg/dL (9-16); Calcium 10.7 mg/dL (8.4-10.2); Carbon Dioxide 26 mmol/L (22-29); Chloride 110 mmol/L (96-108); Creatinine Clr Calc Pharmacy 67.1; Estimated Glomerular Filt Rate 53; Glucose Random 91 mg/dL (60-115); Potassium 3.6 mmol/L (3.3-5.1); Sodium 144 mmol/L (135-145)
[2025-02-04 08:09] LABS: Atypical Lymph Absolute Manual 0.5 x10*3/uL; Atypical Lymphs Percent Manual 5 % (0-6); Band Neutrophils Percent 5 % (3-5); Blast Percent 2 %; Blastocytes Absolute 0.2 X10*3/uL; Lymphocytes Absolute Manual 0.4 X10*3/uL (1.2-4.9); Lymphocytes Percent Manual 4 % (20-40); Monocytes Absolute Manual 2.2 X10*3/uL (0.1-1.2); Monocytes Percent Manual 21 % (2-11); Myelocytes Absolute 0.2 X10*/uL; Myelocytes Percent 2 %; Neutrophils Absolute Manual 6.9 X10*3/uL (2.0-8.3); Neutrophils Percent Manual 61 % (45-73)
[2025-02-04 08:13] LABS: RBC Morphology NOTED
[2025-02-04 08:14] LABS: Dohle Bodies PRESENT; Macrocytosis 1+ (5-14) /OIF; Ovalocytes 1+ (5-14) /OIF; Platelet Estimate DECREASED (NORMAL); Platelet Morphology Comment NORMAL; Polychromasia 1+ (0-2) /OIF; Stomatocytes 1+ (5-14) /OIF; Toxic Granulation PRESENT
[2025-02-04] MEDS: Ammonium Lactate 12 % Lotion 226 GM BOTTLE 1 APPL TOPICAL (09:13)
[2025-02-04] MEDS: Atovaquone 750 MG/5 ML ORAL.SUSP 1500 MG PO (09:23)
[2025-02-04] MEDS: levETIRAcetam 250 MG TABLET 750 MG PO (09:24)
[2025-02-04] MEDS: LETERMOVIR 480 MG 480 EACH PO (09:25)
[2025-02-04] MEDS: Fluconazole 100 MG TABLET PO (09:27)
[2025-02-04] MEDS: Magnesium Oxide 400 MG TABLET PO (09:27)
[2025-02-04] MEDS: Acyclovir 200 MG CAPSULE 400 MG PO ×2 (09:27→14:26)
[2025-02-04] MEDS: Furosemide 40 MG/4 ML VIAL 80 MG IVPUSH (09:28)
[2025-02-04] MEDS: Tranexamic Acid 1,000 MG in 0.9 % Sodium Chloride 50 ML 360 MG IV (09:59)
[2025-02-04 10:13] LABS: A. Phagocytophilum Ab IgG <1:64 (<1:64); A. Phagocytophilum Ab IgM <1:20 (<1:20); E. Chaffeensis Ab IgG <1:64 (<1:64); E. Chaffeensis Ab IgM <1:20 (<1:20)
[2025-02-04] MEDS: Nystatin Oral Susp 500,000 UNIT/5 ML ORAL.SUSP 500000 UNIT PO ×3 (11:05→18:59)
[2025-02-04] MEDS: Acetaminophen 325 MG TABLET 975 MG PO (11:15)
--- NOTE | 2025-02-04 12:47 | P.DS_ITS ---
DS: Providers Provider Date of Service: 02/04/25 Date of admission: 01/29/25 13:12 Date of discharge: 02/04/25 Primary care physician: Sonali Magana MD Consults: 01/29/25 13:11 Consult to Nephrology Routine Consulting Provider: [facility] Reason for consultation: Hypercalcemia, GINNY; pmh of worsening T-cell lymphoma 01/29/25 13:30 Consult to Hematology / Oncology Routine Consulting Provider: [facility] Reason for consultation: T-cell lymphoma, from onc suite Consult to Infectious Diseases Routine Consulting Provider: [facility] Reason for consultation: Neutropenic fever 01/29/25 19:56 Consult to Wound Care Routine Reason for consultation: rash throughout whole body Attending physician on discharge: Lazaro Norris Discharging clinician: Elena Cohen DS: Diagnosis Discharge Diagnosis (1) Acute kidney injury: Status: Acute (2) Hypercalcemia: Status: Acute DS: Summary Hospital Course Hospital Course: From H&P on the day of admission Pt is a 44-year-old male with a 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 Hammond at [facility], HTN, and HLD who is a direct admission to the hospital from Oncology suite after pt was noted to be febrile at 102 degrees and routine labs showed severe thrombocytopenia with undetectable platelets as well as hypercalcemia. Pt has undergone high-dose chemotherapy, bone marrow transplant, stem cell transplantation, as well as other experimental therapies with lymphoma recurrence. Pt has been monitored for cytopenias, receiving blood and platelet transfusion over the past few weeks. Last week was admitted to [facility] and treated with Nplate, Neulasta, and high dose cytarabine monotherapy 2g x2 with last dose on 01/21. Today in oncology office was given 1 L IVF, 2 units dk telets, and started on vanc and Zosyn before being directly admitted to the hospital. ?Pt complains of pruritic all-body rash for the past few days. Has also been coughing on and off for the past few days with noted hemoptysis and mild epistaxis with blowing nose since yesterday. Denies hematuria, hematochezia, or melena. States he has not been either eating or drinking much the past few weeks. Also has felt very cold and experienced uncontrollable shivering for the past few hours since being in the hospital. Some weakness with walking, but no lightheadedness or dizziness. Denies chest pain/pressure, palpitations. No nausea, vomiting, abdominal pain. Today patient's vitals significant for fever up to 102.9, tachycardia up to 123, and hypotension as low as 79/51. Labs were significant for leukopenia 2.1, H&H 7.9/23.1, platelets undetectable, absolute neutrophils 0.3, creatinine 2.03(elevated from 0.90), lactic acid 2.2, and calcium 14.2. Ordered CXR which showed left lower lobe consolidation suspicious for pneumonia. Pt is admitted to the hospital for treatment and further evaluation of thrombocytopenia, hypercalcemia, and neutropenic fever in the the setting of pneumonia with sepsis and pt with worsening T cell lymphoma. Neutropenic fever in the setting of pneumonia with severe sepsis negative cultures, CXR showed left lower lobe consolidation concerning for pneumonia. Initially treated with IV vancomycin and cefepime, started 01/29/2025, switched to PO Doxycycline per ID rec 02/01/25. tick borne panel negative. pending Legionella Ag, and strep pneumo. dc Neutropenic precautions; recovered ANC. ID consult; rash likely duo to Levaquin. Blood cultures negative to date. Heme/Onc following, consider hospice care, had informational session with [facility], they reiterated no further treatment options and recommended hospice care. Patient is not currently ready to transition to hospice care. Lab work relatively stable including renal function and calcium levels. Plan for 2 units platelet transfusion today and discharged home with plan to follow- up in Hematology/oncology office early next week. Patient and family understand that there are no further treatment options. Likely to need further transfusions in the future, but hoping to get home for at least a short time. Plan to discontinue acyclovir, Mepron, letermovir upon discharge as per oncology recommendation. acute Hypercalcemia 2/2 T-cell lymphoma Treated with IV fluids, Lasix, received pamidronate x2 and calcitonin x3 gauze followed by Nephrology. Calcium down to 10. 7 will need outpatient follow up Thrombocytopenia Onc rec to keep PLT >20. Received multiple platelet transfusions, plan for 2 unit transfusion on the day of discharge. Oncology can arrange follow up visit for transfusion as needed in clinic. Epistaxis Nasal packing removed Discharge home on PO Tranexamic acid bid per dr Hammond Acute hypokalemia Resolved with replacement GINNY Received IV fluids, creatinine stable Hypotension Improved with IV fluid Neutropenia with Mouth sores ANC improved to 1.9 Nystatin and restart Acyclovir for now Acute on chronic anemia Patient's H&H improved to 9 after 2 units In the setting of T cell lymphoma and recent chemotherapy CBC relatively stable Maculopapular rash Possibly secondary to recent course of Levaquin Time Attestation Discharge Coordination Time (in mins): 40 Quality: Safe Use of Opioids Does Pt have an Active Cancer Diagnosis on the Problem List?: Yes Opioid Measure Date for [facility] Report: 01/06/25 Opioid Measure Time for [facility] Report: 06:57 Quality: Stroke Does the patient have a stroke diagnosis?: No Physical Exam Vital Signs: Vital Signs: Last Vital Signs Temp 97.5 F 02/04/25 11:55 Pulse 107 H 02/04/25 11:55 Resp 20 02/04/25 11:55 BP 104/78 02/04/25 11:55 Pulse Ox 98 02/04/25 11:55 O2 Del Method Room Air 02/04/25 11:55 O2 Flow Rate 2 02/02/25 03:22 BMI result Body Mass Index 25.1 Const: General: comfortable, alert and awake Orientation/consciousness: patient oriented x3 Resp: Effort & Inspection: normal respiratory effort Neuro: General: patient oriented x3, moves all extremities and CN's II-XI intact bilaterally DS: Data Data Completed and Pending Labs on day of discharge: Laboratory Results - last 24 hr 02/01/25 02/03/25 02/03/25 15:28 05:57 12:49 WBC RBC Hgb Hct MCV MCH MCHC RDW Plt Count MPV Immature Gran % (Auto) Neut % (Auto) Lymph % (Auto) [place] % (Auto) Eos % (Auto) Baso % (Auto) Lymph # (Auto) [place] # (Auto) Eos # (Auto) Baso # (Auto) Abs Immat Gran (auto) Absolute Neuts (auto) Absolute Nucleated RBC Nucleated RBC % (auto) Neutrophils % (Manual) Band Neutrophils % Lymphocytes % (Manual) Atypical Lymphs % (Man) Monocytes % (Manual) Myelocytes % Blast Cells % (Manual) Abs Neuts (Manual) Lymphocytes # (Manual) Atyp Lymphs # (Manual) Monocytes # (Manual) Myelocytes # Blast Cells # Toxic Granulation Dohle Bodies Platelet Estimate Plt Morphology Comment RBC Morphology Polychromasia Macrocytosis Ovalocytes Stomatocytes Sodium 142 Potassium 4.4 D Chloride 103 Carbon Dioxide 27 Anion Gap 16 BUN 33 H Creatinine 1.55 H Estim Creat Clear Calc 62.7 Estimated GFR 49 Random Glucose 181 H Calcium 11.8 H Alkaline Phosphatase 265 H A. phagocytophilum IgG <1:64 A. phagocytophilum IgM <1:20 A.phagocytophilum Intrp A. phagocytophilum Cmmt See Below E. chaffeensis IgG Ab <1:64 E. chaffeensis IgM Ab <1:20 E. chaffeensis Interp E. chaffeensis Comment See Below Blood Type Antibody Screen 02/04/25 02/04/25 06:23 09:08 WBC 10.4 RBC 2.61 L Hgb 8.2 L Hct 24.6 L MCV 94.3 MCH 31.4 MCHC 33.3 RDW 18.9 H Plt Count 12 L* MPV TNP Immature Gran % (Auto) Cancelled Neut % (Auto) Cancelled Lymph % (Auto) Cancelled [place] % (Auto) Cancelled Eos % (Auto) Cancelled Baso % (Auto) Cancelled Lymph # (Auto) Cancelled [place] # (Auto) Cancelled Eos # (Auto) Cancelled Baso # (Auto) Cancelled Abs Immat Gran (auto) Cancelled Absolute Neuts (auto) Cancelled Absolute Nucleated RBC 0.070 H Nucleated RBC % (auto) 0.7 H Neutrophils % (Manual) 61 Band Neutrophils % 5 Lymphocytes % (Manual) 4 L Atypical Lymphs % (Man) 5 Monocytes % (Manual) 21 H Myelocytes % 2 Blast Cells % (Manual) 2 Abs Neuts (Manual) 6.9 Lymphocytes # (Manual) 0.4 L Atyp Lymphs # (Manual) 0.5 Monocytes # (Manual) 2.2 H Myelocytes # 0.2 Blast Cells # 0.2 Toxic Granulation PRESENT Dohle Bodies PRESENT Platelet Estimate DECREASED Plt Morphology Comment NORMAL RBC Morphology NOTED Polychromasia 1+ (0-2) Macrocytosis 1+ (5-14) Ovalocytes 1+ (5-14) Stomatocytes 1+ (5-14) Sodium 144 Potassium 3.6 Chloride 110 H Carbon Dioxide 26 Anion Gap 12 BUN 36 H Creatinine 1.45 H Estim Creat Clear Calc 67.1 Estimated GFR 53 Random Glucose 91 Calcium 10.7 H D Alkaline Phosphatase A. phagocytophilum IgG A. phagocytophilum IgM A.phagocytophilum Intrp A. phagocytophilum Cmmt E. chaffeensis IgG Ab E. chaffeensis IgM Ab E. chaffeensis Interp E. chaffeensis Comment Blood Type Unknown Antibody Screen NEGATIVE Discharge Plan Discharge Anticipated Discharge Date/Time: 02/04/25 17:16 Patient Disposition: Home Health Service Discharge Diagnosis: Neutropenic fever Sepsis due to pneumonia Severe thrombocytopenia T-cell lymphoma Referrals: Sonali Magana MD [Primary Care Provider] - 1 Week Ninfa Hammond MD [Physician] - 1 Week (PLEASE CALL DR. HAMMOND'S OFFICE TO SCHEDULE A FOLLOW-UP APPT.) Discharge Medications: New doxycycline monohydrate 100 mg Capsule 100 mg PO Q12H 6 Days Qty: 12 0RF tranexamic acid 650 mg tablet 650 mg PO Q12H 14 Days Qty: 28 0RF Continued polyethylene glycol 3350 [Miralax] 17 gram Powder In Packet 17 g PO BID PRN (Reason: Constipation) oxycodone 5 mg Capsule 5 mg PO Q6H PRN (Reason: Pain) senna 8.6 mg Capsule 8.6 mg PO BID PRN (Reason: Constipation) levetiracetam 750 mg tablet 750 mg PO BID mirtazapine 15 mg tablet 15 mg PO BEDTIME esomeprazole magnesium 20 mg capsule,delayed release(DR/EC) 20 mg PO DAILY@0630 loperamide 2 mg Capsule 2 mg PO QID PRN (Reason: Loose Stool) potassium phosphate, monobasic 500 mg Tablet,Soluble 500 mg PO BID sodium chloride 0.9 % (flush) [Normal Saline Flush] Syringe 10 ml IV DAILY Rx Instructions: administer before and after IV drug administration as part of [facility] protocol saliva substitute combo no.9 Mouthwash 15 ml MUCOUS MEMBRANE Q4H PRN (Reason: Dry Mouth) Rx Instructions: swish for 15-30 secs , then spit out; do not swallow magnesium oxide 400 mg magnesium Tablet 400 mg PO BID Discontinued acyclovir 400 mg Tablet 400 mg PO TID Qty: 90 3RF atovaquone 750 mg/5 mL Suspension 1,500 mg PO DAILY levofloxacin 500 mg Tablet 500 mg PO DAILY propranolol 10 mg Tablet 10 mg PO DAILY letermovir 480 mg Tablet 480 mg PO DAILY Discharge Orders: Discharge Order (Routine); Ordered 02/04/25 Ordered By: Elena Cohen Activity on Discharge: As tolerated Stand Alone Forms: Patient Portal Discharge page Print Language: Czech Care Plan Goals: See below Health Concerns: Sepsis, pneumonia, T-cell lymphoma, hypercalcemia, severe thrombocytopenia Plan of Treatment: Continue doxycycline as ordered Take TXA as ordered Start propanolol, acyclovir, Mepron, letermovir Persistent hypercalcemia, thrombocytopenia Last platelet transfusion February 04 Call to schedule follow-up appointment with Dr. Hammond on Saturday We will need close monitoring of platelets, calcium levels Consider hospice care Assessment: See discharge summary Patient Instructions: Blood Transfusion Discharge Instructions Discharge Date/Time: 02/04/25 20:10
--- NOTE | 2025-02-04 16:45 | P.PNNP_ITS ---
Subjective Subjective Date of Service: 02/04/25 Interval history: Events noted Physical Exam 2 Vital Signs: Vital Signs: Last Vital Signs Temp 98.4 F 02/04/25 16:01 Pulse 101 H 02/04/25 16:01 Resp 18 02/04/25 16:01 BP 107/76 02/04/25 16:01 Pulse Ox 96 02/04/25 15:36 O2 Del Method Room Air 02/04/25 15:36 O2 Flow Rate 2 02/02/25 03:22 BMI result Body Mass Index 25.1 Const: General: no acute distress, alert, awake and ill appearing O rientation/consciousness: patient oriented x3 Eyes: EOM: EOMs intact bilaterally Neck: Neck: Yes supple Resp: Effort & Inspection: normal respiratory effort and able to speak in complete sentences Auscultation: rhonchi and diminished lung sounds Cardio: Rate: regular rate Rhythm: regular rhythm Heart sounds: S1 normal heart sound present and S2 normal heart sound present GI: Palpation (GI): Soft to palpation and nontender : General: Yes no CVA tenderness Back/Spine/Pelvis: Back: no CVA tenderness Skin: Rashes: no rashes Neuro: General: patient oriented x3 Extrem: General: No edema and No pedal edema Objective Data Labs 02/04/25 06:23 02/04/25 06:23 Labs: Laboratory Results - last 24 hr 02/01/25 02/04/25 02/04/25 15:28 06:23 09:08 WBC 10.4 RBC 2.61 L Hgb 8.2 L Hct 24.6 L MCV 94.3 MCH 31.4 MCHC 33.3 RDW 18.9 H Plt Count 12 L* MPV TNP Immature Gran % (Auto) Cancelled Neut % (Auto) Cancelled Lymph % (Auto) Cancelled [place] % (Auto) Cancelled Eos % (Auto) Cancelled Baso % (Auto) Cancelled Lymph # (Auto) Cancelled [place] # (Auto) Cancelled Eos # (Auto) Cancelled Baso # (Auto) Cancelled Abs Immat Gran (auto) Cancelled Absolute Neuts (auto) Cancelled Absolute Nucleated RBC 0.070 H Nucleated RBC % (auto) 0.7 H Neutrophils % (Manual) 61 Band Neutrophils % 5 Lymphocytes % (Manual) 4 L Atypical Lymphs % (Man) 5 Monocytes % (Manual) 21 H Myelocytes % 2 Blast Cells % (Manual) 2 Abs Neuts (Manual) 6.9 Lymphocytes # (Manual) 0.4 L Atyp Lymphs # (Manual) 0.5 Monocytes # (Manual) 2.2 H Myelocytes # 0.2 Blast Cells # 0.2 Toxic Granulation PRESENT Dohle Bodies PRESENT Platelet Estimate DECREASED Plt Morphology Comment NORMAL RBC Morphology NOTED Polychromasia 1+ (0-2) Macrocytosis 1+ (5-14) Ovalocytes 1+ (5-14) Stomatocytes 1+ (5-14) Sodium 144 Potassium 3.6 Chloride 110 H Carbon Dioxide 26 Anion Gap 12 BUN 36 H Creatinine 1.45 H Estim Creat Clear Calc 67.1 Estimated GFR 53 Random Glucose 91 Calcium 10.7 H D A. phagocytophilum IgG <1:64 A. phagocytophilum IgM <1:20 A.phagocytophilum Intrp A. phagocytophilum Cmmt See Below E. chaffeensis IgG Ab <1:64 E. chaffeensis IgM Ab <1:20 E. chaffeensis Interp E. chaffeensis Comment See Below Blood Type Unknown Antibody Screen NEGATIVE Procedures Date of Service Date of Service: 02/04/25 Assessment & Plan Assessment and plan (1) Acute kidney injury: Status: Acute (2) Hypercalcemia: Status: Acute Plan Patient has been treated for T-cell lymphoma with multiple therapies, presenting with pancytopenia and hypercalcemia. PTH appropriately suppressed; Received 90mg dose of bisphosphonate given; DC NaCl 0.9% 200 ml/hour and DC Lasix to 80 mg b.i.d; . Acute kidney injury likely due to tubular injury; Serum creatinine improved; USS kidneys did not show any obstruction; Normal uric acid levels; C/W current supportive care for now Time Spent With Patient Time: Total time managing care of this patient today ____ minutes. Progress Note: Quality Stroke Does the patient have a stroke diagnosis?: No
[2025-02-04] MEDS: Heparin Sodium,Porcine Flush 500 UNIT/5 ML SYRINGE IVFLUSH (19:36)
[2025-02-05 01:53] LABS: Legionella Ag Urine Not Detected (Not Detected)
--- NOTE | 2025-02-05 08:50 | MHC.CM.PN ---
LATE ENTRY DC NOTE FOR 02/04/25, PT MEDICALLY CLEARED FOR DC HOME W/NEW [facility] FOR SN, [facility] AGREED TO FREE VISITS PT'S [employer] INSURANCE PLAN HAS NO HOMECARE SERVICES, CM CONTACTED PT'S [facility] AT [employer] ON FILE TO DISCUSS PER PT REQUEST, [facility] FOR TRANSPORT.
[2025-02-05 17:43] LABS: Strep Pneumo Ag urine Not Detected (Not Detected)
[2025-02-06 19:53] LABS: VITAMIN D (1,25 OH) D3 <8 pg/mL; Vit D (1,25-Dihydroxy) Total <8 pg/mL (18-72); Vitamin D (1,25 OH) D2 <8 pg/mL
== END 2025-02-04 20:10 | disposition home health service (06) | DRG 872 ==
LOC: HO.S3 13:14 → HO.IMC 13:41
PROVIDERS: Family Medicine; Internal Medicine; Internal Medicine Critical Care Medicine; Nurse Practitioner Family; Pathology Anatomic Pathology & Clinical Pathology; Student in an Organized Health Care Education/Training Program; Admitting Provider Student in an Organized Health Care Education/Training Program; PCP Internal Medicine; Visit Provider Physician Assistant Medical
DX: A41.9 Sepsis, unspecified organism (principal); C85.90 Non-Hodgkin lymphoma, unspecified, unspecified site; Z94.84 Stem cells transplant status; B37.0 Candidal stomatitis; N17.9 Acute kidney failure, unspecified; J98.11 Atelectasis; D61.818 Other pancytopenia; E87.6 Hypokalemia; T36.8X5A Adverse effect of other systemic antibiotics, initial encounter; L27.0 Generalized skin eruption due to drugs and medicaments taken internally; D70.3 Neutropenia due to infection; R50.81 Fever presenting with conditions classified elsewhere; R65.20 Severe sepsis without septic shock; I95.9 Hypotension, unspecified; E83.52 Hypercalcemia; E86.1 Hypovolemia; R04.0 Epistaxis; Z20.822 Contact with and (suspected) exposure to COVID-19; Z79.899 Other long term (current) drug therapy
CPT/HCPCS: 0241U; 36415; 71045; 76775; 80048; 80053; 80076; 80202; 81001; 81003; 82306; 82310; 82565; 82652; 83605; 83615; 83880; 83970; 84100; 84550; 85007; 85025; 85027; 85610; 86078; 86666; 86850; 86900; 86901; 86920; 87449; 87468; 87469; 87478; 87484; 87640; 87641; 87798; 87899; J0131; J0692; J1200; J1450; J1642; J1938; J2430; J2470; J2919; J3370; J3371; J3430; J7120; P9016; P9047; P9073

== ENCOUNTER 2025-01-29 13:12 | Outpatient (BNV) | payer OTHER, SELFPAY | END 2025-01-31 22:38 | PROVIDERS: Admitting Provider Student in an Organized Health Care Education/Training Program; PCP Internal Medicine; Visit Provider Radiology Diagnostic Radiology | DX: J98.11 Atelectasis (principal) | CPT/HCPCS: 71045 ==

== ENCOUNTER 2025-01-29 13:12 | Outpatient (BNV) | payer OTHER, SELFPAY | END 2025-01-29 15:00 | PROVIDERS: Admitting Provider Student in an Organized Health Care Education/Training Program; PCP Internal Medicine; Visit Provider Radiology Diagnostic Radiology | DX: N28.1 Cyst of kidney, acquired (principal) | CPT/HCPCS: 71045; 76775 ==

== ENCOUNTER 2025-01-29 13:12 | Outpatient (BNV) | payer OTHER, SELFPAY | END 2025-01-30 17:10 | PROVIDERS: Admitting Provider Student in an Organized Health Care Education/Training Program; PCP Internal Medicine; Visit Provider Radiology Diagnostic Radiology | DX: J98.11 Atelectasis (principal) | CPT/HCPCS: 71045 ==

== ENCOUNTER → 2025-01-29 13:12 | Outpatient (BNV) | payer OTHER, SELFPAY | PROVIDERS: Admitting Provider Student in an Organized Health Care Education/Training Program; PCP Internal Medicine; Visit Provider Nurse Practitioner Family | DX: N17.9 Acute kidney failure, unspecified (principal); E83.52 Hypercalcemia | CPT/HCPCS: 99222; 99232 ==

== ENCOUNTER → 2025-01-29 13:12 | Outpatient (BNV) | payer OTHER, SELFPAY | PROVIDERS: Admitting Provider Student in an Organized Health Care Education/Training Program; PCP Internal Medicine; Visit Provider Internal Medicine | DX: D64.9 Anemia, unspecified (principal); N17.9 Acute kidney failure, unspecified; K13.79 Other lesions of oral mucosa; A41.9 Sepsis, unspecified organism; R65.20 Severe sepsis without septic shock; J18.9 Pneumonia, unspecified organism; D70.9 Neutropenia, unspecified; R50.81 Fever presenting with conditions classified elsewhere; E83.52 Hypercalcemia; E87.6 Hypokalemia | CPT/HCPCS: 99223; 99232; 99233; 99239; 99499 ==

== ENCOUNTER → 2025-01-29 13:12 | Outpatient (BNV) | payer OTHER, SELFPAY | PROVIDERS: Admitting Provider Student in an Organized Health Care Education/Training Program; PCP Internal Medicine; Visit Provider Internal Medicine Critical Care Medicine | DX: D69.6 Thrombocytopenia, unspecified (principal); N17.9 Acute kidney failure, unspecified; E83.52 Hypercalcemia | CPT/HCPCS: 99232 ==

== ENCOUNTER → 2025-01-29 13:12 | Outpatient (BNV) | payer OTHER, SELFPAY | PROVIDERS: Admitting Provider Student in an Organized Health Care Education/Training Program; PCP Internal Medicine; Visit Provider Internal Medicine | DX: C85.90 Non-Hodgkin lymphoma, unspecified, unspecified site (principal); D69.6 Thrombocytopenia, unspecified | CPT/HCPCS: 99222; 99232 ==

== ENCOUNTER → 2025-01-29 13:12 | Outpatient (BNV) | payer OTHER, SELFPAY | PROVIDERS: Admitting Provider Student in an Organized Health Care Education/Training Program; PCP Internal Medicine; Visit Provider Internal Medicine | DX: C84.40 Peripheral T-cell lymphoma, not elsewhere classified, unspecified site (principal) | CPT/HCPCS: 99222; 99231 ==